=== PATIENT | male | born 1965 | race Caucasian/White ===

== ENCOUNTER 2019-05-12 09:19 | Inpatient (IN) | payer MEDICAID ==
[2019-05-12] VITALS (10 sets, daily range): BP systolic 144–179; BP diastolic 76–126
[~2019-05-12] VITALS: Ht 182.9 cm; Wt 134.1 kg
[~2019-05-12 09:19] MED LIST: ALBU8.5H8 INH; ALD25T PO; ASPI-107 PO; CARV-50 PO; FURO40TA4 PO; LINA5TAB4 PO; LOSA100T57 PO; POTA10TA19 PO; TIOT4MIS5 INH; ZAR2.5T PO
[2019-05-12] MEDS ORDERED: diltiazem 5mg/ml 5ml inj. IV ONE ×2 (09:45→10:10)
[2019-05-12 09:52] LABS: BASOPHILS # (AUTO) 0.1 X10'3 (0-0.2); BASOPHILS % (AUTO) 0.8 % (0-1); EOSINOPHILS # (AUTO) 0.3 X10'3 (0-0.9); EOSINOPHILS % (AUTO) 3.4 % (0-6); HEMATOCRIT 48.7 % (42.0-52.0); HEMOGLOBIN 16.6 g/dl (14.0-17.9); LYMPHOCYTES % (AUTO) 19.8 % (21-51); MEAN CORPUSCULAR HEMOGLOBIN 31.7 PG (27.0-31.0); MEAN CORPUSCULAR VOLUME 93.2 FL (78-98); MEAN PLATELET VOLUME 8.7 FL (7.4-10.4); MONOCYTES # (AUTO) 0.8 X10'3 (0-0.9); NEUTROPHILS # (AUTO) 6.8 X10'3 (1.8-7.7); PLATELET COUNT 169 X10'3 (140-440); RED BLOOD COUNT 5.23 X10'6 (4.70-6.10)
[2019-05-12 10:03] LABS: ALANINE AMINOTRANSFERASE 56 U/L (12-78); ALBUMIN 3.1 G/DL (3.4-5.0); ALBUMIN/GLOBULIN RATIO 0.6 (1.1-1.5); ALKALINE PHOSPHATASE 94 IU/L (46-116); ANION GAP 5 (8-16); ASPARTATE AMINO TRANSFERASE 29 U/L (10-37); BILIRUBIN,TOTAL 0.2 MG/DL (0.1-1.0); BLOOD UREA NITROGEN 14 MG/DL (7-18); BUN/CREATININE RATIO 12.2 (5.4-32.0); CALCIUM 9.4 MG/DL (8.5-10.1); CHLORIDE 103 MMOL/L (99-107); CREATININE 1.15 MG/DL (0.60-1.10); GLUCOSE 235 MG/DL (70-104); POTASSIUM 4.2 MMOL/L (3.5-5.1); SODIUM 138 MMOL/L (135-145); TOTAL CARBON DIOXIDE 30.1 MMOL/L (24-32); TOTAL PROTEIN 8.4 G/DL (6.4-8.2); eGFR 67 ML/MIN
[2019-05-12] MEDS ORDERED: CefTRIAXone 2gm/D5W 50ml 50 ML IV ONE (10:25)
[2019-05-12] MEDS ORDERED: diltiazem-D5W 125mg/125ml 125 ML IV ONE (10:43)
[2019-05-12] MEDS ORDERED: diltiazem-NS 100mg/100ml 100 ML IV ONE (10:48)
--- NOTE | 2019-05-12 12:14 | NUR ---
received report from artis, breaking for lunch
--- NOTE | 2019-05-12 12:19 | NUR ---
contact numbers: kesha [phone] and mom segun [phone]
[2019-05-12] MEDS ORDERED: magnesium Cl slow-release 64mg tablet PO PRN (12:55)
[2019-05-12] MEDS ORDERED: mag hydrox/Alum hydrox/simeth 30ml oral suspension PO PRN (12:55)
[2019-05-12] MEDS ORDERED: ondansetron/PF 4mg/2ml inj IV PRN (12:55)
[2019-05-12] MEDS ORDERED: diltiazem-D5W 125mg/125ml 125 ML IV SCH (12:55)
[2019-05-12] MEDS ORDERED: morphine 2 MG/ML inj. syringe IV PRN ×2 (12:55)
[2019-05-12] MEDS ORDERED: magnesium 4gm in 100ml NS 100 ML IV PRN (12:55)
[2019-05-12] MEDS ORDERED: magnesium hydroxide 30ml (MOM) UD suspension PO PRN (12:55)
[2019-05-12] MEDS ORDERED: potassium CL 10mEq/100ml bag 100 ML IV PRN ×2 (12:55)
[2019-05-12] MEDS ORDERED: acetaminophen 325mg tablet PO PRN (12:55)
[2019-05-12] MEDS ORDERED: magnesium 2GM in 50ml NS 50 ML IV PRN (12:55)
[2019-05-12] MEDS ORDERED: potassium Cl 20 mEq SR tablet PO PRN ×2 (12:55)
[2019-05-12] MEDS ORDERED: diltiazem-NS 100mg/100ml 100 ML IV SCH (13:15)
[2019-05-12] MEDS: enoxaparin 100mg/ml syringe SUBCUT SCH ×2 (13:26→22:42)
[2019-05-12] MEDS: enoxaparin 30mg/0.3ml syringe SUBCUT SCH ×2 (13:26→22:43)
[2019-05-12] MEDS: diltiazem-NS 100mg/100ml 100 ML IV SCH ×2 (13:33→18:30)
[2019-05-12] MEDS ORDERED: ZOLP10TA5 PO (13:35)
[2019-05-12] MEDS ORDERED: TIOT18CA3 IH (13:35)
[2019-05-12] MEDS ORDERED: INSU100I31 SQ (13:36)
[2019-05-12] MEDS ORDERED: DULA0.75 SQ (13:37)
[2019-05-12] MEDS ORDERED: SACU1TAB4 PO (13:39)
[2019-05-12] MEDS ORDERED: BECL10.62 IH (13:40)
[2019-05-12] MEDS ORDERED: glucagon, human recombinant 1mg kit SUBCUT PRN (13:45)
[2019-05-12] MEDS ORDERED: dextrose 50%-water 50ml dispensing syringe IV PRN ×2 (13:45)
[2019-05-12] MEDS ORDERED: dextrose ORAL solution 15 GM/59 ML bottle PO PRN ×2 (13:45)
[2019-05-12] MEDS ORDERED: MESSAGE TO PHARMACY PO ONE (13:45)
--- NOTE | 2019-05-12 13:45 | NUR ---
patient arrived on unit from ER on [facility]. pt ambulated to bed without difficulty. lunch tray ordered from dietary. Patient resting comfortably in bed. Will continue to monitor.
[2019-05-12] MEDS: HYDROcodone/acetaminophen 5mg/325mg tablet PO PRN ×2 (16:56→21:32)
[2019-05-12] MEDS ORDERED: ipratropium/albuterol 3ml nebule NEB PRN (18:00)
--- NOTE | 2019-05-12 18:00 | NUR ---
Patient in room PCU 3016. I have received report from Marlee GOLDSTEIN and had the opportunity to ask questions and assume patient care.
[2019-05-12] MEDS: insulin Lispro (HumaLOG) vial - multi-dose SQ SCH (18:31)
[2019-05-12] MEDS: ipratropium/albuterol 3ml nebule NEB SCH (19:44)
[2019-05-12] MEDS: budesonide 0.5mg/2ml UD nebule IH SCH (19:44)
[2019-05-12] MEDS: carVEDilol 12.5mg tablet PO SCH (20:11)
[2019-05-12] MEDS: insulin glargine (Lantus) pen - multi-dose SQ SCH (20:25)
[2019-05-12] MEDS: furosemide 20 MG/2 ML vial IV SCH (20:28)
[2019-05-12] MEDS: zolpidem 5mg tablet PO PRN (22:14)
[2019-05-13] VITALS (9 sets, daily range): BP systolic 115–169; BP diastolic 79–97
[2019-05-13] MEDS: diltiazem-NS 100mg/100ml 100 ML IV SCH ×2 (00:36→08:56)
[2019-05-13 05:25] LABS: BASOPHILS # (AUTO) 0.1 X10'3 (0-0.2); BASOPHILS % (AUTO) 0.6 % (0-1); EOSINOPHILS # (AUTO) 0.4 X10'3 (0-0.9); HEMATOCRIT 46.5 % (42.0-52.0); LYMPHOCYTES # (AUTO) 1.8 X10'3 (1.1-4.8); LYMPHOCYTES % (AUTO) 19.4 % (21-51); MEAN CORPUSCULAR HEMOGLOBIN 32.3 PG (27.0-31.0); MEAN CORPUSCULAR HGB CONC 34.5 g/dL (33.0-36.5); MEAN CORPUSCULAR VOLUME 93.6 FL (78-98); MONOCYTES # (AUTO) 0.6 X10'3 (0-0.9); MONOCYTES % (AUTO) 6.8 % (2-12); NEUTROPHILS # (AUTO) 6.3 X10'3 (1.8-7.7); NEUTROPHILS % (AUTO) 69.2 % (42-75); PLATELET COUNT 173 X10'3 (140-440); RED BLOOD COUNT 4.96 X10'6 (4.70-6.10); WHITE BLOOD COUNT 9.1 X10'3 (4.5-11.0)
[2019-05-13 05:27] LABS: ALBUMIN 2.9 G/DL (3.4-5.0); ANION GAP 6 (8-16); BLOOD UREA NITROGEN 15 MG/DL (7-18); BUN/CREATININE RATIO 10.5 (5.4-32.0); CHLORIDE 101 MMOL/L (99-107); CREATININE 1.43 MG/DL (0.60-1.10); GLUCOSE 166 MG/DL (70-104); POTASSIUM 4.1 MMOL/L (3.5-5.1); SODIUM 137 MMOL/L (135-145); TOTAL CARBON DIOXIDE 30.5 MMOL/L (24-32); eGFR 52 ML/MIN
--- NOTE | 2019-05-13 05:48 | NUR ---
Orientee documentation: I have reviewed and agree with all interventions, meds given, assessments performed and documented by Halle GOLDSTEIN.
--- NOTE | 2019-05-13 06:05 | NUR ---
Problems reprioritized. Patient report given, questions answered & plan of care reviewed with Marlee and Kelly RNs.
--- NOTE | 2019-05-13 06:06 | NUR ---
Patient in room PCU 3016. I have received report from Cassidy GOLDSTEIN and Halle GOLDSTEIN and had the opportunity to ask questions and assume patient care.
--- NOTE | 2019-05-13 06:06 | NUR ---
Problems reprioritized. Patient report given, questions answered & plan of care reviewed with Marlee GOLDSTEIN and Kelly GOLDSTEIN.
[2019-05-13] MEDS: ipratropium/albuterol 3ml nebule NEB SCH ×4 (06:53→19:22)
[2019-05-13] MEDS: budesonide 0.5mg/2ml UD nebule IH SCH (06:53)
[2019-05-13] MEDS ORDERED: spironolactone 25 MG tablet PO SCH (08:00)
[2019-05-13] MEDS: K and/or MAG REPLACEMENT MC SCH (08:00)
[2019-05-13] MEDS ORDERED: SACUBITRIL PO SCH (08:00)
[2019-05-13] MEDS ORDERED: VALSARTAN PO SCH (08:00)
[2019-05-13] MEDS: furosemide 20 MG/2 ML vial IV SCH (08:56)
[2019-05-13] MEDS: carVEDilol 12.5mg tablet PO SCH ×2 (08:56→20:43)
[2019-05-13] MEDS: enoxaparin 100mg/ml syringe SUBCUT SCH (08:57)
[2019-05-13] MEDS: enoxaparin 30mg/0.3ml syringe SUBCUT SCH (08:57)
[2019-05-13] MEDS: insulin Lispro (HumaLOG) vial - multi-dose SQ SCH ×3 (09:29→18:58)
--- NOTE | 2019-05-13 11:44 | NUR ---
Called and left message for to bring in patients Entresto, per pharmacy.
[2019-05-13] MEDS: HYDROcodone/acetaminophen 5mg/325mg tablet PO PRN ×2 (13:11→19:01)
[2019-05-13] MEDS ORDERED: diltiazem 30mg tablet PO ONE (13:40)
--- NOTE | 2019-05-13 14:23 | NUR ---
Page sent to Dr. Taveras regarding patient's anxiety. PAGER ID: [phone] MESSAGE: re [phone] Irvin Ordoñez. Pt is c/o anxiety, he says he's taken Xanax in the past. Please advise. Thanks! Marlee [phone]
--- NOTE | 2019-05-13 14:26 | NUR ---
DM consult: Pt with A1c 7.0 seen at bedside. Pt very tired and unable to stay awake during RD visit. Written DM education with referral to outpatient DM class and RD contact information left at bedside. Pt endorses a good appetite which is evident with documented 75-100% PO intake, pt reports getting full from meals. Pt reports LBM today. Will continue to follow. Addendum: 05/13/19 at [address] Amended: Links added.
--- NOTE | 2019-05-13 16:35 | NUR ---
Telephone order to kwadwo Adame.
--- NOTE | 2019-05-13 18:00 | NUR ---
Patient in room PCU 3016. I have received report from Marlee GOLDSTEIN and Kelly GOLDSTEIN and had the opportunity to ask questions and assume patient care.
--- NOTE | 2019-05-13 18:20 | NUR ---
Problems reprioritized. Patient report given, questions answered & plan of care reviewed with Dewayne and Halle RNs.
--- NOTE | 2019-05-13 18:30 | NUR ---
Patient in room PCU 3016A. I have received report from ANGELITA Whalen and ANGELITA Mendoza and had the opportunity to ask questions and assume patient care. Patient resting comfortably in bed for bedside report. On room air and stable at this time. Still in atrial fibrillation controlled HR in 70's. Will continue to monitor closely.
[2019-05-13] MEDS: diltiazem 30mg tablet PO SCH (20:43)
[2019-05-13] MEDS: apixaban 5mg tablet PO SCH (20:43)
[2019-05-13] MEDS: insulin glargine (Lantus) pen - multi-dose SQ SCH (21:19)
[2019-05-13] MEDS: zolpidem 5mg tablet PO PRN (21:28)
[2019-05-14] VITALS (17 sets, daily range): BP systolic 132–168; BP diastolic 82–126
[2019-05-14 05:25] LABS: BASOPHILS % (AUTO) 0.5 % (0-1); EOSINOPHILS # (AUTO) 0.3 X10'3 (0-0.9); EOSINOPHILS % (AUTO) 3.6 % (0-6); HEMATOCRIT 48.6 % (42.0-52.0); HEMOGLOBIN 16.4 g/dl (14.0-17.9); LYMPHOCYTES # (AUTO) 1.7 X10'3 (1.1-4.8); LYMPHOCYTES % (AUTO) 22.6 % (21-51); MEAN CORPUSCULAR HEMOGLOBIN 31.6 PG (27.0-31.0); MEAN CORPUSCULAR HGB CONC 33.7 g/dL (33.0-36.5); MEAN CORPUSCULAR VOLUME 93.8 FL (78-98); MEAN PLATELET VOLUME 9.2 FL (7.4-10.4); MONOCYTES # (AUTO) 0.7 X10'3 (0-0.9); MONOCYTES % (AUTO) 8.6 % (2-12); NEUTROPHILS % (AUTO) 64.7 % (42-75); PLATELET COUNT 168 X10'3 (140-440); RED BLOOD COUNT 5.18 X10'6 (4.70-6.10); RED CELL DISTRIBUTION WIDTH 14.3 % (11.5-14.5); WHITE BLOOD COUNT 7.7 X10'3 (4.5-11.0)
[2019-05-14 05:40] LABS: ALBUMIN 2.8 G/DL (3.4-5.0); ANION GAP 4 (8-16); BLOOD UREA NITROGEN 18 MG/DL (7-18); CALCIUM 8.7 MG/DL (8.5-10.1); CHLORIDE 102 MMOL/L (99-107); CREATININE 1.29 MG/DL (0.60-1.10); GLUCOSE 128 MG/DL (70-104); SODIUM 137 MMOL/L (135-145); TOTAL CARBON DIOXIDE 30.6 MMOL/L (24-32); eGFR 58 ML/MIN
--- NOTE | 2019-05-14 05:56 | NUR ---
audiovisual lead technician notified RN of several episodes of ST 130-150's. Patient takes home medication ambien HS and has been receiving [place] and has been complaining of frequent, lucid nightmares. Will inform day shift so that hospitalist over seeing patient is aware.
--- NOTE | 2019-05-14 06:07 | NUR ---
Problems reprioritized. Patient report given, questions answered & plan of care reviewed with ANGELITA Kendall.
--- NOTE | 2019-05-14 06:10 | NUR ---
Patient in room PCU 3016. I have received report from ANGELITA Neri and ANGELITA Buchanan and had the opportunity to ask questions and assume patient care. Patient currently resting in bed, bed locked and low, call light in reach, no acute distress, will continue to monitor
--- NOTE | 2019-05-14 06:20 | NUR ---
Problems reprioritized. Patient report given, questions answered & plan of care reviewed with Eleni OGLDSTEIN.
--- NOTE | 2019-05-14 06:23 | NUR ---
Orientee documentation: I have reviewed and agree with all interventions, assessments performed and documented by ANGELITA Neri.
[2019-05-14] MEDS: LORazepam 1 MG tablet PO PRN (06:29)
[2019-05-14] MEDS: diltiazem 30mg tablet PO SCH ×3 (07:35→21:00)
[2019-05-14] MEDS: apixaban 5mg tablet PO SCH ×2 (07:35→19:03)
[2019-05-14] MEDS: carVEDilol 12.5mg tablet PO SCH ×2 (07:35→19:03)
[2019-05-14] MEDS: HYDROcodone/acetaminophen 5mg/325mg tablet PO PRN ×2 (07:41→21:26)
--- NOTE | 2019-05-14 07:46 | NUR ---
PAGER ID: [phone] MESSAGE: ANGELITA Knowles, ext [phone], [phone], [place], patient back in RVR, HR 130s-160, morning meds given, BP 168/107 patient c/o headache 12/02, Ativan and [place] have both been given in last hour.
--- NOTE | 2019-05-14 07:47 | NUR ---
PAGER ID: [phone] MESSAGE: ANGELITA Knowles, ext [phone], [phone], [place], patient back in RVR, HR 130s-160, morning meds given, BP 168/107 patient c/o headache 12/02, Ativan and [place] have both been given in last hour.
[2019-05-14] MEDS: K and/or MAG REPLACEMENT MC SCH (08:00)
[2019-05-14] MEDS: LORazepam 2 mg/ml vial IV PRN (08:23)
[2019-05-14] MEDS: metoprolol tartrate 1mg/ml inj IV SCH ×2 (08:23→08:35)
--- NOTE | 2019-05-14 08:30 | NUR ---
spoke with Dr Taveras regarding patients return to RVR, ordered metoprolol as it seems that patient is extremely anxious and this may be triggering a higher ventricular response, also gave ativan 1 mg IV for anxiety. will repeat dose of metoprolol if necessary.
--- NOTE | 2019-05-14 08:40 | NUR ---
PAGER ID: [phone] MESSAGE: ANGELITA hobbs, ext [phone], [phone], [place], patient is complaining is expressing feelings of doom, IV Ativan was given, diaphoretic, wheezing that cleared with cough, HR continues to escalate intermittently but is lower baseline post metoprolol
[2019-05-14] MEDS: ipratropium/albuterol 3ml nebule NEB SCH ×4 (08:53→19:58)
[2019-05-14] MEDS: budesonide 0.5mg/2ml UD nebule IH SCH (08:53)
[2019-05-14] MEDS ORDERED: morphine 2 MG/ML inj. syringe IV PRN (08:55)
[2019-05-14] MEDS ORDERED: furosemide 20 MG/2 ML vial IV ONE (09:00)
[2019-05-14] MEDS ORDERED: methylPREDNISolone sod succ 125mg/2ml vial IV ONE (09:00)
[2019-05-14] MEDS: piperacillin/tazo 3.375gm/50ml 50 ML IV SCH ×3 (09:24→23:55)
--- NOTE | 2019-05-14 10:00 | NUR ---
Rapid response team paged due to patient being in increasing distress
--- NOTE | 2019-05-14 10:05 | NUR ---
Rapid Response A rapid response was called on this patient. On arrival to bedside, the patient was alternating between somnolent and agitated, HR in the 130s-150s, bipap on, RR mid 20s. Patient was asserting feelings of impending doom when awake. Interventions: ABG drawn, sitter placed to help keep patient calm and keep bipap in place, cardizem drip restarted for RVR, vimal DC'd Rapid response outcome: patient will continue to be monitored on PCU
[2019-05-14 10:31] LABS: ABG BASE EXCESS 3.5 mmol/L (-2.0-3.0); ABG HCO3 28.5 mmol/L (22.0-26.0); ABG OXYGEN SATURATION 87.5 % (95-98); ABG PCO2 (T) 44.1 mmHg (35.0-45.0); ABG PH (T) 7.429 (7.350-7.450); ABG PO2 (T) 50.5 mmHg (83-108); ALLEN'S TEST Positive; FCOHb 0.7 % (0.5-1.5); FMetHb 0.2 % (0.3-1.12); FO2Hb 86.7 % (94-100); TOTAL HEMOGLOBIN 18.3 G/dl (14.0-17.9)
[2019-05-14] MEDS: diltiazem-NS 100mg/100ml 100 ML IV SCH (10:44)
--- NOTE | 2019-05-14 11:00 | NUR ---
Dr. Taveras confirmed approval of placement of midline for patient.
--- NOTE | 2019-05-14 11:35 | NUR ---
PAGER ID: [phone] MESSAGE: ANGELITA Knowles, ext [phone], [id number], [place], echo done, EF 25-30%. HR continues to be 120s-130s, family at bedside, would like to speak to you. State this behavior is not normal for patient.
--- NOTE | 2019-05-14 11:37 | NUR ---
PAGER ID: [phone] MESSAGE: ANGELITA Knowles, ext [phone], [id number], [place], echo done, EF 25-30%. HR continues to be 120s-130s, family at bedside, would like to speak to you. State this behavior is not normal for patient.
[2019-05-14] MEDS: insulin Lispro (HumaLOG) vial - multi-dose SQ SCH ×3 (14:03→21:21)
--- NOTE | 2019-05-14 17:55 | NUR ---
PAGER ID: [phone] MESSAGE: ANGELITA Knowles, ext [phone], 2211N, [place], patient had 6 beat run of V-tach, HR going back up to 120s/130s with Cardizem @5, do you want to increase?
--- NOTE | 2019-05-14 18:22 | NUR ---
Patient in room PCU 3016. I have received report from Eleni GOLDSTEIN and had the opportunity to ask questions and assume patient care.
--- NOTE | 2019-05-14 18:22 | NUR ---
Problems reprioritized. Patient report given, questions answered & plan of care reviewed with ANGELITA Goddard.
[2019-05-14] MEDS: lactobacillus rhamnosus 10,000 MMU CELLS/CAPSULE PO SCH (19:03)
[2019-05-14] MEDS: furosemide 20 MG/2 ML vial IV SCH (19:04)
--- NOTE | 2019-05-14 21:10 | NUR ---
RE: non administration of PO cardizem. Medication held r/t pt being back on the cardizem drip.
[2019-05-14] MEDS: insulin glargine (Lantus) pen - multi-dose SQ SCH (21:20)
[2019-05-15] VITALS (9 sets, daily range): BP systolic 114–149; BP diastolic 80–99
[2019-05-15 01:07] LABS: BASOPHILS # (AUTO) 0.1 X10'3 (0-0.2); BASOPHILS % (AUTO) 0.7 % (0-1); EOSINOPHILS % (AUTO) 0 % (0-6); HEMATOCRIT 51.1 % (42.0-52.0); HEMOGLOBIN 17.4 g/dl (14.0-17.9); LYMPHOCYTES # (AUTO) 1.4 X10'3 (1.1-4.8); LYMPHOCYTES % (AUTO) 10.8 % (21-51); MEAN CORPUSCULAR HEMOGLOBIN 31.5 PG (27.0-31.0); MEAN CORPUSCULAR HGB CONC 34.1 g/dL (33.0-36.5); MEAN CORPUSCULAR VOLUME 92.4 FL (78-98); MEAN PLATELET VOLUME 9.2 FL (7.4-10.4); MONOCYTES # (AUTO) 0.6 X10'3 (0-0.9); MONOCYTES % (AUTO) 4.4 % (2-12); NEUTROPHILS # (AUTO) 11.1 X10'3 (1.8-7.7); NEUTROPHILS % (AUTO) 84.1 % (42-75); PLATELET COUNT 204 X10'3 (140-440); RED BLOOD COUNT 5.53 X10'6 (4.70-6.10); WHITE BLOOD COUNT 13.3 X10'3 (4.5-11.0)
[2019-05-15 01:18] LABS: ALBUMIN 2.9 G/DL (3.4-5.0); ANION GAP 6 (8-16); BLOOD UREA NITROGEN 22 MG/DL (7-18); BUN/CREATININE RATIO 13.3 (5.4-32.0); CALCIUM 9.5 MG/DL (8.5-10.1); CHLORIDE 99 MMOL/L (99-107); CREATININE 1.65 MG/DL (0.60-1.10); GLUCOSE 181 MG/DL (70-104); MAGNESIUM 2.1 MG/DL (1.5-2.4); POTASSIUM 3.9 MMOL/L (3.5-5.1); SODIUM 138 MMOL/L (135-145); TOTAL CARBON DIOXIDE 32.6 MMOL/L (24-32); TROPONIN I < 0.04 NG/ML (0.0-0.05); eGFR 44 ML/MIN
[2019-05-15] MEDS: diltiazem-NS 100mg/100ml 100 ML IV SCH (03:40)
--- NOTE | 2019-05-15 06:11 | NUR ---
Problems reprioritized. Patient report given, questions answered & plan of care reviewed with Eleni GOLDSTEIN.
--- NOTE | 2019-05-15 06:15 | NUR ---
Patient in room PCU 3016. I have received report from ANGELITA Goddard and had the opportunity to ask questions and assume patient care. Patient is currently resting in bed, bed locked and low, call light in reach, no acute distress, will continue to monitor.
[2019-05-15] MEDS: budesonide 0.5mg/2ml UD nebule IH SCH ×2 (07:02→23:30)
[2019-05-15] MEDS: ipratropium/albuterol 3ml nebule NEB SCH ×4 (07:02→19:13)
[2019-05-15] MEDS: lactobacillus rhamnosus 10,000 MMU CELLS/CAPSULE PO SCH ×2 (07:12→22:31)
[2019-05-15] MEDS: diltiazem 30mg tablet PO SCH ×3 (07:12→22:30)
[2019-05-15] MEDS: apixaban 5mg tablet PO SCH ×2 (07:12→22:30)
[2019-05-15] MEDS: carVEDilol 12.5mg tablet PO SCH ×2 (07:13→22:31)
[2019-05-15] MEDS: piperacillin/tazo 3.375gm/50ml 50 ML IV SCH ×3 (07:15→23:04)
[2019-05-15] MEDS: furosemide 20 MG/2 ML vial IV SCH (07:21)
[2019-05-15] MEDS: K and/or MAG REPLACEMENT MC SCH (08:00)
[2019-05-15] MEDS: insulin Lispro (HumaLOG) vial - multi-dose SQ SCH ×2 (08:18→18:42)
--- NOTE | 2019-05-15 10:05 | NUR ---
Initial: Pt admit with new onset A.fib with RVR. Per MD notes pt was in respiratory distress, severely anxious, and also maybe having panic attacks; pt s/p rapid response yesterday per RN notes. Pt on heart healthy CHO controlled diet documented with 75-100% PO intake. Pt already has RD contact information and has been encouraged to reach out to RD team if he has any requests or questions. LBM 05/13, currently only with PRN bowel care. No nutrition diagnosis at this time. Will continue to follow. Recommendations: 1) Continue heart healthy CHO controlled diet 2) Routine bowel care 3) Wt per rx Addendum: 05/15/19 at [address] Amended: Links added.
[2019-05-15] MEDS ORDERED: diltiazem 30mg tablet PO ONE (10:40)
--- NOTE | 2019-05-15 11:50 | NUR ---
Student documentation: I have reviewed all interventions, assessments performed and [facility] Student Medication Administration: For this medication-pass time frame, all medication were reviewed, dispensed, administered and documented per hospital policy [facility].
[2019-05-15] MEDS: LORazepam 2 mg/ml vial IV PRN (16:48)
--- NOTE | 2019-05-15 18:21 | NUR ---
Problems reprioritized. Patient report given, questions answered & plan of care reviewed with ANGELITA Paula.
--- NOTE | 2019-05-15 18:37 | NUR ---
Patient in room PCU 3016. I have received report from Eleni GOLDSTEIN and had the opportunity to ask questions and assume patient care. bedside report. pt on bipap on current settings. 25 % FIO2. resting quietly. blood sugar covered 22units for glucose of 191 and 63 grams. fall precaution implemented and maintained.
[2019-05-15] MEDS: insulin glargine (Lantus) pen - multi-dose SQ SCH (22:42)
--- NOTE | 2019-05-15 23:00 | NUR ---
Dr. Navarrete at bedside. D/C Diltazem drip clarification for HR parameters. goal HR 110. IF HR sustains 130 or greater administer Metoprolol IVP
[2019-05-16 00:21] VITALS: BP 140/85
[2019-05-16 02:00] VITALS: BP 117/91
[2019-05-16 05:37] LABS: ALBUMIN 2.9 G/DL (3.4-5.0); ANION GAP 5 (8-16); BLOOD UREA NITROGEN 29 MG/DL (7-18); BUN/CREATININE RATIO 17.4 (5.4-32.0); CHLORIDE 101 MMOL/L (99-107); CREATININE 1.67 MG/DL (0.60-1.10); GLUCOSE 131 MG/DL (70-104); MAGNESIUM 2.2 MG/DL (1.5-2.4); POTASSIUM 4.3 MMOL/L (3.5-5.1); SODIUM 137 MMOL/L (135-145); TOTAL CARBON DIOXIDE 30.6 MMOL/L (24-32); eGFR 43 ML/MIN
[2019-05-16 05:40] LABS: BASOPHILS % (AUTO) 0.4 % (0-1); EOSINOPHILS # (AUTO) 0.1 X10'3 (0-0.9); EOSINOPHILS % (AUTO) 1.1 % (0-6); HEMATOCRIT 49.3 % (42.0-52.0); HEMOGLOBIN 16.8 g/dl (14.0-17.9); LYMPHOCYTES # (AUTO) 3.3 X10'3 (1.1-4.8); MEAN CORPUSCULAR HEMOGLOBIN 31.8 PG (27.0-31.0); MEAN CORPUSCULAR VOLUME 93.4 FL (78-98); MONOCYTES # (AUTO) 0.8 X10'3 (0-0.9); NEUTROPHILS # (AUTO) 8.9 X10'3 (1.8-7.7); NEUTROPHILS % (AUTO) 67.5 % (42-75); PLATELET COUNT 183 X10'3 (140-440); RED BLOOD COUNT 5.28 X10'6 (4.70-6.10); RED CELL DISTRIBUTION WIDTH 14.4 % (11.5-14.5); WHITE BLOOD COUNT 13.1 X10'3 (4.5-11.0)
[2019-05-16 06:00] VITALS: BP 137/103
--- NOTE | 2019-05-16 06:41 | NUR ---
Problems reprioritized. Patient report given, questions answered & plan of care reviewed with Enrike GOLDSTEIN. pt asleep. Bipap on currently on 25 % FiO2. no distress noted. .
--- NOTE | 2019-05-16 06:44 | NUR ---
Patient in room PCU 3016. I have received report from ANGELITA Marcus and had the opportunity to ask questions and assume patient care.
[2019-05-16] MEDS: budesonide 0.5mg/2ml UD nebule IH SCH ×2 (07:41→07:42)
[2019-05-16] MEDS: ipratropium/albuterol 3ml nebule NEB SCH (07:41)
[2019-05-16] MEDS ORDERED: furosemide 20MG tablet PO SCH (08:00)
[2019-05-16] MEDS: K and/or MAG REPLACEMENT MC SCH (08:00)
[2019-05-16] MEDS: piperacillin/tazo 3.375gm/50ml 50 ML IV SCH (08:19)
[2019-05-16] MEDS: apixaban 5mg tablet PO SCH (08:19)
[2019-05-16] MEDS ORDERED: carVEDilol 12.5mg tablet PO ONE (08:20)
[2019-05-16] MEDS: insulin Lispro (HumaLOG) vial - multi-dose SQ SCH (08:28)
[2019-05-16] MEDS: lactobacillus rhamnosus 10,000 MMU CELLS/CAPSULE PO SCH (08:29)
[2019-05-16] MEDS: LORazepam 1 MG tablet PO PRN (09:47)
[2019-05-16] MEDS ORDERED: digoxin 250mcg/ml 2ml ampule IV ONE (10:20)
--- NOTE | 2019-05-16 10:59 | NUR ---
PAGER ID: [phone] MESSAGE: [id number] ruma Salcedo RN Ext [phone]
--- NOTE | 2019-05-16 11:43 | NUR ---
Patient left AMA. PIV's and PICC line taken out and leads taken off patient. Patient was educated by of the risk of going AMA. Dr was notified and AMA paper signed.
[2019-05-16] MEDS ORDERED: digoxin 250mcg/ml 2ml ampule IV SCH (16:30)
[2019-05-16] MEDS ORDERED: carVEDilol 12.5mg tablet PO SCH (20:00)
[2019-05-17] MEDS ORDERED: digoxin 250mcg (0.25mg) tablet PO SCH (08:00)
[2019-05-17] MEDS ORDERED: SACU1TAB4 PO (13:51)
[2019-05-17] MEDS ORDERED: FURO40TA4 PO (13:51)
[2019-05-17] MEDS ORDERED: DILT180C66 PO (13:51)
[2019-05-17] MEDS ORDERED: APIX5TAB3 PO (13:51)
[2019-05-17] MEDS ORDERED: CARV-50 PO (13:51)
== END 2019-05-16 11:25 | disposition left against medical advice (07) | DRG 190 ==
LOC: ER 09:20 → ED HOLD 13:16 → PCU 3S 13:55
PROVIDERS: ADMIT Hospitalist; ATTEND Family Medicine
PROC: 5A09357 Assistance with Respiratory Ventilation, Less than 24 Consecutive Hours, Continuous Positive Airway Pressure (ICD-10-PCS; principal; 2019-05-12)
PROC: 5A09357 Assistance with Respiratory Ventilation, Less than 24 Consecutive Hours, Continuous Positive Airway Pressure (ICD-10-PCS; 2019-05-13)
PROC: 5A09357 Assistance with Respiratory Ventilation, Less than 24 Consecutive Hours, Continuous Positive Airway Pressure (ICD-10-PCS; 2019-05-14)
PROC: 5A09357 Assistance with Respiratory Ventilation, Less than 24 Consecutive Hours, Continuous Positive Airway Pressure (ICD-10-PCS; 2019-05-15)
DX: I21.A1 Myocardial infarction type 2 (principal); I50.23 Acute on chronic systolic (congestive) heart failure; N17.9 Acute kidney failure, unspecified; N18.3 Chronic kidney disease, stage 3 (moderate); B19.20 Unspecified viral hepatitis C without hepatic coma; R14.0 Abdominal distension (gaseous); F12.90 Cannabis use, unspecified, uncomplicated; R00.0 Tachycardia, unspecified; G47.33 Obstructive sleep apnea (adult) (pediatric); I13.0 Hypertensive heart and chronic kidney disease with heart failure and stage 1 through stage 4 chronic kidney disease, or unspecified chronic kidney disease; J44.1 Chronic obstructive pulmonary disease with (acute) exacerbation; Z53.29 Procedure and treatment not carried out because of patient's decision for other reasons; F41.0 Panic disorder [episodic paroxysmal anxiety]; I25.10 Atherosclerotic heart disease of native coronary artery without angina pectoris; I48.91 Unspecified atrial fibrillation; Z80.8 Family history of malignant neoplasm of other organs or systems; I25.2 Old myocardial infarction; Z82.5 Family history of asthma and other chronic lower respiratory diseases; Z95.810 Presence of automatic (implantable) cardiac defibrillator; Z90.49 Acquired absence of other specified parts of digestive tract; Z79.899 Other long term (current) drug therapy; Z79.82 Long term (current) use of aspirin; Z79.4 Long term (current) use of insulin
CPT/HCPCS: 36415; 36600; 71045; 76700; 76937; 80048; 80053; 82803; 82948; 83036; 83605; 83735; 83880; 84145; 84484; 85018; 85025; 87040; 87081; 93005; 93306; 94640; 94660; 94760; 96365; 96375; 96376; 99285; G0378; J0696; J1160; J1650; J1815; J1940; J2060; J2270; J2543; J2930; J3490; J7626

== ENCOUNTER 2019-05-16 18:19 | Inpatient (IN) | payer MEDICAID ==
[~2019-05-16] VITALS: Ht 182.9 cm; Wt 134.0 kg
[~2019-05-16 18:19] MED LIST changes: +BECL10.62 IH; +DULA0.75 SQ; +INSU100I31 SQ; +SACU1TAB4 PO; +TIOT18CA3 IH; +ZOLP10TA5 PO
--- NOTE | 2019-05-16 18:50 | NUR ---
notified MD Miner of 160 HR, new orders for 1L NS bolu and 1mg ativan ivp
[2019-05-16] MEDS ORDERED: normal saline 1000ml 1,000 ML IV ONE (18:55)
[2019-05-16] MEDS ORDERED: LORazepam 2 mg/ml vial IV ONE (18:55)
[2019-05-16 19:08] LABS: BASOPHILS # (AUTO) 0.1 X10'3 (0-0.2); BASOPHILS % (AUTO) 0.5 % (0-1); EOSINOPHILS # (AUTO) 0.2 X10'3 (0-0.9); EOSINOPHILS % (AUTO) 1.3 % (0-6); HEMATOCRIT 51.9 % (42.0-52.0); HEMOGLOBIN 17.7 g/dl (14.0-17.9); LYMPHOCYTES # (AUTO) 3.5 X10'3 (1.1-4.8); LYMPHOCYTES % (AUTO) 24.4 % (21-51); MEAN CORPUSCULAR HEMOGLOBIN 31.5 PG (27.0-31.0); MEAN CORPUSCULAR HGB CONC 34.1 g/dL (33.0-36.5); MEAN CORPUSCULAR VOLUME 92.5 FL (78-98); MEAN PLATELET VOLUME 9.2 FL (7.4-10.4); MONOCYTES # (AUTO) 1.1 X10'3 (0-0.9); MONOCYTES % (AUTO) 7.7 % (2-12); NEUTROPHILS # (AUTO) 9.4 X10'3 (1.8-7.7); NEUTROPHILS % (AUTO) 66.1 % (42-75); PLATELET COUNT 205 X10'3 (140-440); RED BLOOD COUNT 5.61 X10'6 (4.70-6.10); RED CELL DISTRIBUTION WIDTH 13.9 % (11.5-14.5); WHITE BLOOD COUNT 14.2 X10'3 (4.5-11.0)
[2019-05-16 19:24] LABS: ALANINE AMINOTRANSFERASE 95 U/L (12-78); ALBUMIN 3.3 G/DL (3.4-5.0); ALBUMIN/GLOBULIN RATIO 0.6 (1.1-1.5); ALKALINE PHOSPHATASE 100 IU/L (46-116); ANION GAP 9 (8-16); ASPARTATE AMINO TRANSFERASE 44 U/L (10-37); BILIRUBIN,TOTAL 0.3 MG/DL (0.1-1.0); BLOOD UREA NITROGEN 35 MG/DL (7-18); BUN/CREATININE RATIO 19.6 (5.4-32.0); CALCIUM 9.3 MG/DL (8.5-10.1); CHLORIDE 103 MMOL/L (99-107); CREATININE 1.79 MG/DL (0.60-1.10); GLUCOSE 136 MG/DL (70-104); SODIUM 142 MMOL/L (135-145); TOTAL CARBON DIOXIDE 29.8 MMOL/L (24-32); TOTAL PROTEIN 8.8 G/DL (6.4-8.2); eGFR 40 ML/MIN
--- NOTE | 2019-05-16 19:35 | NUR ---
notified MD Miner of HR still maintaining at 160 and pt report of feeling asymptomatic. No new orders at this time. Pt is attempting to use the urinal for the second time.
[2019-05-16] MEDS ORDERED: diltiazem 5mg/ml 5ml inj. IV ONE ×2 (19:45→20:35)
[2019-05-16] MEDS ORDERED: magnesium 2GM in 50ml NS 50 ML IV ONE (19:45)
[2019-05-16 20:00] LABS: URINE AMPHETAMINE SCREEN POSITIVE (Neg); URINE BARBITUATE SCREEN NEGATIVE (Neg); URINE BENZODIAZEPINES SCREEN NEGATIVE (Neg); URINE CANNABINOID SCREEN NEGATIVE (Neg); URINE COCAINE SCREEN NEGATIVE (Neg); URINE METHADONE SCREEN NEGATIVE (Neg); URINE OPIATE SCREEN NEGATIVE (Neg); URINE PHENCYCLIDINE SCREEN NEGATIVE (Neg)
[2019-05-16] MEDS ORDERED: diltiazem-D5W 125mg/125ml 125 ML IV SCH (20:00)
[2019-05-16] MEDS: diltiazem-NS 100mg/100ml 100 ML IV SCH (20:15)
[2019-05-16] MEDS ORDERED: mag hydrox/Alum hydrox/simeth 30ml oral suspension PO PRN (20:40)
[2019-05-16] MEDS ORDERED: magnesium 4gm in 100ml NS 100 ML IV PRN (20:40)
[2019-05-16] MEDS ORDERED: acetaminophen 325mg tablet PO PRN (20:40)
[2019-05-16] MEDS ORDERED: HYDROcodone/acetaminophen 5mg/325mg tablet PO PRN (20:40)
[2019-05-16] MEDS ORDERED: magnesium Cl slow-release 64mg tablet PO PRN (20:40)
[2019-05-16] MEDS ORDERED: magnesium hydroxide 30ml (MOM) UD suspension PO PRN (20:40)
[2019-05-16] MEDS ORDERED: potassium CL 10mEq/100ml bag 100 ML IV PRN ×2 (20:40)
[2019-05-16] MEDS ORDERED: morphine 2 MG/ML inj. syringe IV PRN ×2 (20:40)
[2019-05-16] MEDS ORDERED: ondansetron/PF 4mg/2ml inj IV PRN (20:40)
[2019-05-16] MEDS ORDERED: magnesium 2GM in 50ml NS 50 ML IV PRN (20:40)
[2019-05-16] MEDS ORDERED: potassium Cl 20 mEq SR tablet PO PRN ×2 (20:40)
--- NOTE | 2019-05-16 21:45 | NUR ---
Patient arrived to PCU from the ER at this time. He is alert and oriented and able to make his needs known. He is able to ambulate from the gurney to the bed independently. He denies any pain at this time. He is A-fib with RVR and has a Cardizem drip going at 10mg/hour. He feels asymptomatic. He is on room air. All safety precautions in place. Will continue to monitor.
[2019-05-16 22:00] VITALS: BP 140/82
[2019-05-16 23:00] VITALS: BP 140/97
[2019-05-16] MEDS: apixaban 5mg tablet PO SCH (23:22)
[2019-05-17] VITALS: BP 120/82
--- NOTE | 2019-05-17 00:21 | NUR ---
promotional table spacer PAGER ID: [phone] MESSAGE: Patient Irvin Ordoñez Rm [id number] Patient just had a 6 beat run of V-tach, asymptomatic. Also wanted to obtained order for bipap. Thank you! Christy GOLDSTEIN ext. [phone]
--- NOTE | 2019-05-17 00:42 | NUR ---
Spoke with Dr. Taveras about patient's 6 beat run of V-tach. Patient was asymptomatic and this has not continued. No new orders received for this. Order obtained for Ambien 5mg HS per patient request and the 5mg was ordered rather than the 10mg due to it already being 0043. Also order obtained for patient to be on bipap since this he wears this every night at home.
[2019-05-17] MEDS ORDERED: zolpidem 5mg tablet PO PRN (00:45)
[2019-05-17 00:53] LABS: BASOPHILS # (AUTO) 0.1 X10'3 (0-0.2); BASOPHILS % (AUTO) 1.2 % (0-1); EOSINOPHILS # (AUTO) 0.2 X10'3 (0-0.9); EOSINOPHILS % (AUTO) 1.5 % (0-6); HEMATOCRIT 46.8 % (42.0-52.0); HEMOGLOBIN 15.8 g/dl (14.0-17.9); LYMPHOCYTES # (AUTO) 3.3 X10'3 (1.1-4.8); LYMPHOCYTES % (AUTO) 28.8 % (21-51); MEAN CORPUSCULAR HEMOGLOBIN 31.5 PG (27.0-31.0); MEAN CORPUSCULAR HGB CONC 33.8 g/dL (33.0-36.5); MEAN PLATELET VOLUME 9.2 FL (7.4-10.4); MONOCYTES # (AUTO) 0.8 X10'3 (0-0.9); MONOCYTES % (AUTO) 6.8 % (2-12); NEUTROPHILS % (AUTO) 61.7 % (42-75); PLATELET COUNT 178 X10'3 (140-440); RED BLOOD COUNT 5.03 X10'6 (4.70-6.10); RED CELL DISTRIBUTION WIDTH 14.4 % (11.5-14.5); WHITE BLOOD COUNT 11.3 X10'3 (4.5-11.0)
[2019-05-17 01:00] VITALS: BP 129/75
[2019-05-17 01:08] LABS: ALBUMIN 2.8 G/DL (3.4-5.0); ANION GAP 8 (8-16); BLOOD UREA NITROGEN 31 MG/DL (7-18); BUN/CREATININE RATIO 21.1 (5.4-32.0); CALCIUM 8.4 MG/DL (8.5-10.1); CHLORIDE 104 MMOL/L (99-107); CREATININE 1.47 MG/DL (0.60-1.10); GLUCOSE 167 MG/DL (70-104); MAGNESIUM 2.4 MG/DL (1.5-2.4); POTASSIUM 3.6 MMOL/L (3.5-5.1); SODIUM 141 MMOL/L (135-145); TOTAL CARBON DIOXIDE 29.1 MMOL/L (24-32); eGFR 50 ML/MIN
--- NOTE | 2019-05-17 01:30 | NUR ---
Patient just had another 5 beat run of V-tach. Still asymptomatic and BP is stable. Dr. Taveras notified. No new orders received. Will continue to monitor.
[2019-05-17] MEDS ORDERED: LORazepam 1 MG tablet PO PRN (01:35)
[2019-05-17 02:00] VITALS: BP 168/103
--- NOTE | 2019-05-17 02:50 | NUR ---
MD notified that patient had another 8 beat run and then a 6 beat run of V-tach. No new orders. Patient still asymptomatic.
[2019-05-17 04:00] VITALS: BP 130/78
[2019-05-17] MEDS ORDERED: MESSAGE TO PHARMACY PO ONE (04:30)
[2019-05-17] MEDS ORDERED: dextrose 50%-water 50ml dispensing syringe IV PRN ×2 (04:30)
[2019-05-17] MEDS ORDERED: insulin Lispro (HumaLOG) vial - multi-dose SQ SCH (04:30)
[2019-05-17] MEDS ORDERED: glucagon, human recombinant 1mg kit SUBCUT PRN (04:30)
[2019-05-17] MEDS ORDERED: dextrose ORAL solution 15 GM/59 ML bottle PO PRN ×2 (04:30)
[2019-05-17 05:00] VITALS: BP 145/86
[2019-05-17] MEDS: diltiazem-NS 100mg/100ml 100 ML IV SCH (05:28)
[2019-05-17 06:00] VITALS: BP 132/93
--- NOTE | 2019-05-17 06:22 | NUR ---
Problems reprioritized. Patient report given, questions answered & plan of care reviewed with Gladis RN.
--- NOTE | 2019-05-17 06:56 | NUR ---
Patient in room PCU 3018. I have received report from ANGELITA Harrison and had the opportunity to ask questions and assume patient care. Pt is sleeping. Will continue to monitor.
--- NOTE | 2019-05-17 07:11 | NUR ---
Sent to Dr Lieberman PAGER ID: [phone] MESSAGE: RE: Irvin Ordoñez [id number]. Pt had a 4 beat run of v-tach. EKG done per protocol, charge and I unable to determine ST elevation due to atrial flutter. - Gladis [phone]
[2019-05-17] MEDS ORDERED: K and/or MAG REPLACEMENT MC SCH (08:00)
[2019-05-17] MEDS ORDERED: carVEDilol 12.5mg tablet PO SCH (08:00)
[2019-05-17] MEDS ORDERED: diltiazem 60mg tablet PO SCH (08:00)
[2019-05-17] MEDS ORDERED: furosemide 40mg tablet PO SCH (08:00)
[2019-05-17] MEDS ORDERED: spironolactone 25 MG tablet PO SCH (08:00)
[2019-05-17] MEDS ORDERED: furosemide 20MG tablet PO SCH (08:00)
[2019-05-17] MEDS: apixaban 5mg tablet PO SCH (08:02)
[2019-05-17] MEDS ORDERED: cefpodoxime proxetil 100mg tablet PO SCH (08:30)
--- NOTE | 2019-05-17 08:50 | NUR ---
Sent to Dr Lieberman PAGER ID: [phone] MESSAGE: RE: Irvin Ordoñez [id number]. Pt had 9 beat run of v tach, then 5 beat run. -Gladis [phone]
[2019-05-17] MEDS: diltiazem 30mg tablet PO SCH ×2 (09:08→13:39)
--- NOTE | 2019-05-17 10:01 | NUR ---
Sent to Dr Lieberman PAGER ID: [phone] MESSAGE: RE: Irvin Ordoñez [id number]. Do you want to give a one time dose of Cardizem 120mg since the pt already had 60mg? Also, it sounded like you said a one time dose of Entresto. Did I hear correctly? -Gladis [phone]
--- NOTE | 2019-05-17 10:12 | NUR ---
Pt with A1c 7.0 just recently admitted and seen by [facility] 05/13/19 where pt was provided with written DM education with referral to outpatient DM class and RD contact information. Will continue to follow. Addendum: 05/17/19 at [address] Amended: Links added.
--- NOTE | 2019-05-17 13:28 | NUR ---
Sent to Dr Lieberman PAGER ID: [phone] MESSAGE: RE: Irvin Ordoñez [id number]. Pt extremely agitate. Wants to leave AMA. BP taken manually: 160/80, 154/100. Please advise. -Gladis [phone]
--- NOTE | 2019-05-17 13:28 | NUR ---
Pt extremely agitated. Wants to leave AMA. and mother were here to visit. When the pt stated he was going to leave, the told him not to because his HR and BP are uncontrolled. The pt then to accused his of cheating and that is why she didn't want him to come home. The pt accepted Ativan 1mg PO and consented to waiting to see if he calms down, and waiting to hear from Dr Lieberman.
--- NOTE | 2019-05-17 13:34 | NUR ---
Sent to Dr Lieberman PAGER ID: [phone] MESSAGE: RE: Irvin Ordoñez [id number]. Pt wants to speak with you, threatening to leave AMA. -Gladis 1503
[2019-05-17] MEDS ORDERED: APIX5TAB3 PO (13:51)
[2019-05-17] MEDS ORDERED: CARV-50 PO (13:51)
[2019-05-17] MEDS ORDERED: DILT180C66 PO (13:51)
[2019-05-17] MEDS ORDERED: SACU1TAB4 PO (13:51)
[2019-05-17] MEDS ORDERED: FURO40TA4 PO (13:51)
--- NOTE | 2019-05-17 14:30 | NUR ---
Phoned patient's new prescriptions to [facility] [address] [facility] per pt request. Pt states that he has renewed medications Coreg, Entresto and Lasix already at home.
--- NOTE | 2019-05-17 14:45 | NUR ---
Pt discharged. Off bedside monitor, IV d/c'd, all belongings sent with pt. Rx called in to preferred pharmacy. Escorted down by staff. Left in private vehicle with friend.
[2019-05-17] MEDS ORDERED: insulin glargine (Lantus) pen - multi-dose SQ SCH (21:00)
[2019-05-18] MEDS ORDERED: diltiazem CD 180mg cap (once-daily) PO SCH (08:00)
== END 2019-05-17 14:45 | disposition home or self-care (01) | DRG 139 ==
LOC: ER 18:20 → ED HOLD 21:09 → PCU 3S 21:15
PROVIDERS: ADMIT Hospitalist; ATTEND Internal Medicine
PROC: 5A09357 Assistance with Respiratory Ventilation, Less than 24 Consecutive Hours, Continuous Positive Airway Pressure (ICD-10-PCS; principal; 2019-05-17)
DX: J18.9 Pneumonia, unspecified organism (principal); I50.23 Acute on chronic systolic (congestive) heart failure; I42.7 Cardiomyopathy due to drug and external agent; I48.0 Paroxysmal atrial fibrillation; J44.0 Chronic obstructive pulmonary disease with (acute) lower respiratory infection; E66.01 Morbid (severe) obesity due to excess calories; E11.9 Type 2 diabetes mellitus without complications; I11.0 Hypertensive heart disease with heart failure; F15.10 Other stimulant abuse, uncomplicated; F41.0 Panic disorder [episodic paroxysmal anxiety]; I25.10 Atherosclerotic heart disease of native coronary artery without angina pectoris; B19.20 Unspecified viral hepatitis C without hepatic coma; I48.92 Unspecified atrial flutter; F12.90 Cannabis use, unspecified, uncomplicated; G47.30 Sleep apnea, unspecified; T43.625A Adverse effect of amphetamines, initial encounter; Z79.01 Long term (current) use of anticoagulants; Z79.4 Long term (current) use of insulin; Y92.89 Other specified places as the place of occurrence of the external cause; I25.2 Old myocardial infarction; Z79.899 Other long term (current) drug therapy; Z80.8 Family history of malignant neoplasm of other organs or systems; Z82.5 Family history of asthma and other chronic lower respiratory diseases; Z87.891 Personal history of nicotine dependence; Z68.41 Body mass index [BMI] 40.0-44.9, adult; Z90.49 Acquired absence of other specified parts of digestive tract
CPT/HCPCS: 36415; 71045; 80048; 80053; 80305; 82948; 83735; 84484; 85025; 87081; 93005; 96365; 96375; 99285; G0378; J1815; J2060; J2270; J3475; J3490

== ENCOUNTER 2019-05-19 00:18 | Inpatient (IN) | payer MEDICAID ==
[~2019-05-19] VITALS: Ht 182.9 cm; Wt 137.0 kg
[~2019-05-19 00:18] MED LIST changes: +APIX5TAB3 PO; -ASPI-107 PO; +DILT180C66 PO; -LINA5TAB4 PO; -LOSA100T57 PO; -POTA10TA19 PO; -TIOT4MIS5 INH; -ZAR2.5T PO
[2019-05-19 01:03] LABS: BASOPHILS # (AUTO) 0.1 X10'3 (0-0.2); EOSINOPHILS # (AUTO) 0.4 X10'3 (0-0.9); EOSINOPHILS % (AUTO) 2.9 % (0-6); HEMATOCRIT 50.8 % (42.0-52.0); MEAN PLATELET VOLUME 9.4 FL (7.4-10.4); MONOCYTES # (AUTO) 0.9 X10'3 (0-0.9)
[2019-05-19 01:04] LABS: BASOPHILS % (AUTO) 0.7 % (0-1); HEMOGLOBIN 17.3 g/dl (14.0-17.9); LYMPHOCYTES # (AUTO) 3.5 X10'3 (1.1-4.8); LYMPHOCYTES % (AUTO) 27.2 % (21-51); MEAN CORPUSCULAR HEMOGLOBIN 31.5 PG (27.0-31.0); MEAN CORPUSCULAR VOLUME 92.7 FL (78-98); MONOCYTES % (AUTO) 6.9 % (2-12); NEUTROPHILS % (AUTO) 62.3 % (42-75); PLATELET COUNT 188 X10'3 (140-440); RED BLOOD COUNT 5.48 X10'6 (4.70-6.10); RED CELL DISTRIBUTION WIDTH 13.9 % (11.5-14.5); WHITE BLOOD COUNT 12.8 X10'3 (4.5-11.0)
[2019-05-19] MEDS ORDERED: diltiazem 5mg/ml 5ml inj. IV ONE ×3 (01:05→09:10)
[2019-05-19] MEDS ORDERED: ipratropium/albuterol 3ml nebule NEB ONE (01:05)
[2019-05-19 01:16] LABS: ALANINE AMINOTRANSFERASE 76 U/L (12-78); ALBUMIN 2.9 G/DL (3.4-5.0); ALBUMIN/GLOBULIN RATIO 0.6 (1.1-1.5); ALKALINE PHOSPHATASE 98 IU/L (46-116); ANION GAP 5 (8-16); ASPARTATE AMINO TRANSFERASE 27 U/L (10-37); BILIRUBIN,TOTAL 0.3 MG/DL (0.1-1.0); BLOOD UREA NITROGEN 15 MG/DL (7-18); CALCIUM 8.6 MG/DL (8.5-10.1); CHLORIDE 105 MMOL/L (99-107); CREATININE 1.15 MG/DL (0.60-1.10); GLUCOSE 171 MG/DL (70-104); POTASSIUM 4.1 MMOL/L (3.5-5.1); SODIUM 139 MMOL/L (135-145); TOTAL CARBON DIOXIDE 29.1 MMOL/L (24-32); eGFR 67 ML/MIN
[2019-05-19 01:31] LABS: MAGNESIUM 1.9 MG/DL (1.5-2.4)
[2019-05-19 02:11] LABS: URINE AMPHETAMINE SCREEN POSITIVE (Neg); URINE BARBITUATE SCREEN NEGATIVE (Neg); URINE BENZODIAZEPINES SCREEN NEGATIVE (Neg); URINE CANNABINOID SCREEN NEGATIVE (Neg); URINE COCAINE SCREEN NEGATIVE (Neg); URINE METHADONE SCREEN NEGATIVE (Neg); URINE OPIATE SCREEN NEGATIVE (Neg); URINE PHENCYCLIDINE SCREEN NEGATIVE (Neg)
[2019-05-19] MEDS ORDERED: metoprolol tartrate 1mg/ml inj IV ONE (02:20)
[2019-05-19] MEDS ORDERED: LORazepam 2 mg/ml vial IV ONE (02:35)
[2019-05-19] MEDS: metoprolol tartrate 1mg/ml inj IV PRN ×3 (02:41→03:31)
[2019-05-19] MEDS ORDERED: amiodarone 50MG/ML inj IV ONE (04:30)
[2019-05-19] MEDS ORDERED: amiodarone/D5 360MG/200ML BAG 200 ML IV SCH ×2 (04:30→05:45)
[2019-05-19] MEDS ORDERED: amiodarone 150mg/dext, iso-os 100 ML IV ONE (04:35)
[2019-05-19] MEDS ORDERED: acetaminophen 325mg tablet PO PRN ×2 (05:45)
[2019-05-19] MEDS ORDERED: dextrose ORAL solution 15 GM/59 ML bottle PO PRN ×2 (05:45)
[2019-05-19] MEDS ORDERED: dextrose 50%-water 50ml dispensing syringe IV PRN ×2 (05:45)
[2019-05-19] MEDS ORDERED: diltiazem-D5W 125mg/125ml 125 ML IV SCH (05:45)
[2019-05-19] MEDS ORDERED: mag hydrox/Alum hydrox/simeth 30ml oral suspension PO PRN (05:45)
[2019-05-19] MEDS ORDERED: ondansetron/PF 4mg/2ml inj IV PRN (05:45)
[2019-05-19] MEDS ORDERED: magnesium hydroxide 30ml (MOM) UD suspension PO PRN (05:45)
[2019-05-19] MEDS ORDERED: MESSAGE TO PHARMACY PO ONE (05:45)
[2019-05-19] MEDS ORDERED: glucagon, human recombinant 1mg kit SUBCUT PRN (05:45)
[2019-05-19] MEDS ORDERED: DULAGLUTIDE SQ SCH (05:50)
[2019-05-19] MEDS ORDERED: albuterol 2.5 MG/3 ML nebule NEB PRN (05:50)
[2019-05-19] MEDS ORDERED: diltiazem-NS 100mg/100ml 100 ML IV SCH (06:00)
--- NOTE | 2019-05-19 07:28 | NUR ---
Received report from ANGELITA Velásquez from ED. Patient will be arriving to room 3023B.
--- NOTE | 2019-05-19 07:45 | NUR ---
Patient arrived to room 3023B via gurney. Patient ambulated from the gurney to the bed. Vital signs are temp: 97.8, HR 152, 98% 3.5L, RR 40, BP 160/90. Bed locked and lowered, side rails up x 2, nonskid socks on, call light in reach, and all patient needs met. Patient resting comfortably and in no apparent distress.
[2019-05-19 08:00] VITALS: BP 160/90
[2019-05-19] MEDS ORDERED: non-formulary drug (Beclomethasone Dipropionate (Qvar Redihaler) 2 PUFFS) IH SCH (08:00)
[2019-05-19] MEDS ORDERED: non-formulary drug (Tiotropium Bromide (Spiriva) 1 CAP) IH SCH (08:00)
[2019-05-19] MEDS: ipratropium 0.5 MG/2.5ML nebule IH SCH ×3 (08:44→21:02)
[2019-05-19] MEDS: budesonide 0.5mg/2ml UD nebule IH SCH ×2 (08:44→21:03)
[2019-05-19] MEDS: carVEDilol 12.5mg tablet PO SCH ×2 (09:48→20:52)
[2019-05-19] MEDS: furosemide 40mg tablet PO SCH ×2 (09:48→20:00)
[2019-05-19] MEDS: apixaban 5mg tablet PO SCH ×2 (09:48→20:52)
[2019-05-19] MEDS: spironolactone 25 MG tablet PO SCH (09:48)
[2019-05-19] MEDS: diltiazem CD 180mg cap (once-daily) PO SCH (09:48)
[2019-05-19] MEDS: sacubitril/valsartan 24mg-26mg tablet PO SCH ×2 (10:03→20:51)
[2019-05-19 11:00] VITALS: BP 157/99
--- NOTE | 2019-05-19 12:34 | NUR ---
Paged Dr. Lieberman regarding his heart rate. PAGER ID: [phone] MESSAGE: Irvin Ordoñez. Rm. [phone]. FYI all morning medications administered, IV Cardizem pushed, Amio and Cardizem drip DC'ed and heart rate still trending 140-150. Thank you. Paulette GOLDSTEIN x [phone]
--- NOTE | 2019-05-19 12:54 | NUR ---
New order from Dr. Lieberman: 180 mg PO cardizem CD once now. Patient BP 157/99. HR in 140-150's.
[2019-05-19] MEDS ORDERED: diltiazem CD 180mg cap (once-daily) PO ONE (12:55)
[2019-05-19 15:00] VITALS: BP 147/102
--- NOTE | 2019-05-19 18:26 | NUR ---
Problems reprioritized. Patient report given, questions answered & plan of care reviewed with ANGELITA Buchanan. Patient stable at transfer of care.
--- NOTE | 2019-05-19 18:27 | NUR ---
Problems reprioritized. Patient report given, questions answered & plan of care reviewed with Dewayne GOLDSTEIN. Patient stable at transfer of care.
--- NOTE | 2019-05-19 18:28 | NUR ---
Orientee documentation: I have reviewed and agree with all interventions, assessments performed and documented by ANGELITA Caldwell. Orientee Medication Administration: For this medication-pass time frame, all medication were reviewed, dispensed, administered and documented per hospital policy by Paulette GOLDSTEIN.
--- NOTE | 2019-05-19 18:49 | NUR ---
Patient in room PCU 3023B. I have received report from Olga Lidia RN and ANGELITA Caldwell and had the opportunity to ask questions and assume patient care. Patient awake for bedside report and stable at this time. Remains in atrial flutter with HR in 110's. On room air and saline locked at this time. Will continue to monitor closely.
[2019-05-19 19:00] VITALS: BP 135/65
[2019-05-19] MEDS: insulin Lispro (HumaLOG) vial - multi-dose SQ SCH (19:03)
[2019-05-19] MEDS: zolpidem 5mg tablet PO PRN (20:51)
[2019-05-19] MEDS ORDERED: insulin glargine (Lantus) pen - multi-dose SQ SCH (21:00)
[2019-05-19] MEDS: insulin glargine (Lantus) pen - multi-dose SQ SCH (21:39)
[2019-05-19 23:00] VITALS: BP 144/77
[2019-05-20] VITALS (7 sets, daily range): BP systolic 100–145; BP diastolic 64–95
[2019-05-20] MEDS: ipratropium 0.5 MG/2.5ML nebule IH SCH ×4 (03:26→20:27)
[2019-05-20 05:04] LABS: BASOPHILS # (AUTO) 0.1 X10'3 (0-0.2); BASOPHILS % (AUTO) 0.5 % (0-1); EOSINOPHILS # (AUTO) 0.3 X10'3 (0-0.9); EOSINOPHILS % (AUTO) 2.5 % (0-6); HEMATOCRIT 49.9 % (42.0-52.0); HEMOGLOBIN 16.9 g/dl (14.0-17.9); LYMPHOCYTES # (AUTO) 2.8 X10'3 (1.1-4.8); LYMPHOCYTES % (AUTO) 20.1 % (21-51); MEAN CORPUSCULAR HEMOGLOBIN 31.8 PG (27.0-31.0); MEAN CORPUSCULAR HGB CONC 33.8 g/dL (33.0-36.5); MEAN PLATELET VOLUME 9.1 FL (7.4-10.4); MONOCYTES # (AUTO) 0.9 X10'3 (0-0.9); MONOCYTES % (AUTO) 6.7 % (2-12); NEUTROPHILS # (AUTO) 9.6 X10'3 (1.8-7.7); NEUTROPHILS % (AUTO) 70.2 % (42-75); PLATELET COUNT 178 X10'3 (140-440); RED BLOOD COUNT 5.31 X10'6 (4.70-6.10); RED CELL DISTRIBUTION WIDTH 14.6 % (11.5-14.5); WHITE BLOOD COUNT 13.7 X10'3 (4.5-11.0)
[2019-05-20 05:32] LABS: ALBUMIN 2.7 G/DL (3.4-5.0); ANION GAP 10 (8-16); BLOOD UREA NITROGEN 13 MG/DL (7-18); CALCIUM 8.4 MG/DL (8.5-10.1); CHLORIDE 103 MMOL/L (99-107); CREATININE 1.18 MG/DL (0.60-1.10); GLUCOSE 159 MG/DL (70-104); POTASSIUM 4.2 MMOL/L (3.5-5.1); SODIUM 137 MMOL/L (135-145); TOTAL CARBON DIOXIDE 24.5 MMOL/L (24-32); eGFR 65 ML/MIN
--- NOTE | 2019-05-20 06:30 | NUR ---
Patient in room PCU 3023. I have received report from Dewayne GOLDSTEIN and had the opportunity to ask questions and assume patient care. Patient asleep in bed. In no acute distress. Will continue to monitor.
--- NOTE | 2019-05-20 06:30 | NUR ---
Patient in room PCU 3023. I have received report from ANGELITA Buchanan and had the opportunity to ask questions and assume patient care. Patient awake and in no acute distress.
--- NOTE | 2019-05-20 06:33 | NUR ---
Problems reprioritized. Patient report given, questions answered & plan of care reviewed with ANGELITA Duggan and ANGELITA Caldwell.
[2019-05-20] MEDS: carVEDilol 12.5mg tablet PO SCH ×2 (07:18→19:13)
[2019-05-20] MEDS: apixaban 5mg tablet PO SCH ×2 (07:18→19:10)
[2019-05-20] MEDS: diltiazem CD 180mg cap (once-daily) PO SCH (07:18)
[2019-05-20] MEDS: spironolactone 25 MG tablet PO SCH (07:18)
[2019-05-20] MEDS: furosemide 40mg tablet PO SCH ×2 (07:18→19:10)
[2019-05-20] MEDS: sacubitril/valsartan 24mg-26mg tablet PO SCH ×2 (07:26→19:14)
[2019-05-20] MEDS: budesonide 0.5mg/2ml UD nebule IH SCH ×2 (08:31→20:27)
[2019-05-20] MEDS: insulin Lispro (HumaLOG) vial - multi-dose SQ SCH ×3 (09:08→19:07)
[2019-05-20] MEDS ORDERED: LORazepam 0.5 MG tablet PO PRN (09:20)
[2019-05-20] MEDS ORDERED: diltiazem CD 180mg cap (once-daily) PO ONE (09:20)
--- NOTE | 2019-05-20 09:23 | NUR ---
New orders in for Ativan 0.5mg PRN, Cardizem 360mg daily, and Cardizem 180mg one time, and carb. controlled diet put in per Dr. Lieberman.
--- NOTE | 2019-05-20 10:52 | NUR ---
Paged Dr. Lieberman about patient converting to sinus rhythm. promotional table spacer PAGER ID: [phone] MESSAGE: Irvin Ordoñez. Rm. [phone]. FYI Patient is now is sinus rhythm. Thank you. Paulette GOLDSTEIN x [phone]
--- NOTE | 2019-05-20 16:09 | NUR ---
Paged Dr. Lieberman regarding patient's bradycardic episode. PAGER ID: [phone] MESSAGE: Irvin Ordoñez. Rm. [phone]. Patient was bradycardic over a 3 minute period with the lowest heart rate of 38. Is now trending in the 70-80s now. Patient is asymptomatic. Thank you. Paulette GOLDSTEIN x [phone]
--- NOTE | 2019-05-20 16:18 | NUR ---
Put in order for pacemaker to be interrogated per Dr. Lieberman. Called [employer] for someone to come out and interrogate his pacemaker again. [employer] will be coming out tonight to interrogate.
--- NOTE | 2019-05-20 16:40 | NUR ---
Paged Dr. Lieberman regarding [employer] call. PAGER ID: [phone] MESSAGE: Irvin Ordoñez. Rm. [phone]. [employer] called. Pacemaker has a lower rate setting to 40 and security monitor may be off by 1 or 2 beats. If setting change needed, MD order required. Already interrogated today. Paulette GOLDSTEIN x [phone]
--- NOTE | 2019-05-20 17:19 | NUR ---
Orientee documentation: I have reviewed and agree with all interventions, assessments performed and documented by ANGELITA Caldwell. Orientee Medication Administration: For this medication-pass time frame, all medication were reviewed, dispensed, administered and documented per hospital policy by ANGELITA Caldwell.
--- NOTE | 2019-05-20 18:19 | NUR ---
Patient in room PCU 3023B. I have received report from ANGELITA Duggan and ANGELITA Caldwell and had the opportunity to ask questions and assume patient care. Patient awake for bedside report, on room air, saline locked and stable at this time. Will continue to monitor closely.
--- NOTE | 2019-05-20 18:22 | NUR ---
Problems reprioritized. Patient report given, questions answered & plan of care reviewed with ANGELITA Cagle. Patient stable at transfer of care.
--- NOTE | 2019-05-20 18:27 | NUR ---
Problems reprioritized. Patient report given, questions answered & plan of care reviewed with ANGELITA Buchanan. Patient stable at transfer of care.
[2019-05-20] MEDS: zolpidem 5mg tablet PO PRN (21:26)
[2019-05-20] MEDS: insulin glargine (Lantus) pen - multi-dose SQ SCH (21:57)
[2019-05-21] MEDS: ipratropium 0.5 MG/2.5ML nebule IH SCH ×2 (02:54→08:05)
[2019-05-21 03:00] VITALS: BP 114/76
[2019-05-21 05:05] LABS: BASOPHILS # (AUTO) 0.1 X10'3 (0-0.2); EOSINOPHILS # (AUTO) 0.3 X10'3 (0-0.9); HEMOGLOBIN 16.5 g/dl (14.0-17.9); MONOCYTES # (AUTO) 0.9 X10'3 (0-0.9)
[2019-05-21 05:07] LABS: BASOPHILS % (AUTO) 0.5 % (0-1); EOSINOPHILS % (AUTO) 2.8 % (0-6); HEMATOCRIT 47.7 % (42.0-52.0); LYMPHOCYTES # (AUTO) 2.6 X10'3 (1.1-4.8); LYMPHOCYTES % (AUTO) 21.8 % (21-51); MEAN CORPUSCULAR HEMOGLOBIN 31.9 PG (27.0-31.0); MEAN CORPUSCULAR HGB CONC 34.6 g/dL (33.0-36.5); MEAN CORPUSCULAR VOLUME 92.1 FL (78-98); MEAN PLATELET VOLUME 9.2 FL (7.4-10.4); MONOCYTES % (AUTO) 7.3 % (2-12); NEUTROPHILS # (AUTO) 7.9 X10'3 (1.8-7.7); NEUTROPHILS % (AUTO) 67.6 % (42-75); PLATELET COUNT 185 X10'3 (140-440); RED BLOOD COUNT 5.18 X10'6 (4.70-6.10); RED CELL DISTRIBUTION WIDTH 14.5 % (11.5-14.5); WHITE BLOOD COUNT 11.7 X10'3 (4.5-11.0)
[2019-05-21 05:17] LABS: ALBUMIN 2.7 G/DL (3.4-5.0); ANION GAP 6 (8-16); BLOOD UREA NITROGEN 17 MG/DL (7-18); BUN/CREATININE RATIO 12.9 (5.4-32.0); CALCIUM 8.9 MG/DL (8.5-10.1); CHLORIDE 102 MMOL/L (99-107); CREATININE 1.32 MG/DL (0.60-1.10); GLUCOSE 154 MG/DL (70-104); POTASSIUM 3.9 MMOL/L (3.5-5.1); SODIUM 137 MMOL/L (135-145); TOTAL CARBON DIOXIDE 28.7 MMOL/L (24-32); eGFR 57 ML/MIN
[2019-05-21 06:00] VITALS: BP 125/80
--- NOTE | 2019-05-21 06:15 | NUR ---
Patient in room PCU 3023. I have received report from ANGELITA Braun and had the opportunity to ask questions and assume patient care.
--- NOTE | 2019-05-21 06:33 | NUR ---
Problems reprioritized. Patient report given, questions answered & plan of care reviewed with ANGELITA Garcia.
[2019-05-21] MEDS ORDERED: diltiazem CD 180mg cap (once-daily) PO SCH (08:00)
[2019-05-21] MEDS: budesonide 0.5mg/2ml UD nebule IH SCH (08:05)
[2019-05-21] MEDS: apixaban 5mg tablet PO SCH (08:48)
[2019-05-21] MEDS: spironolactone 25 MG tablet PO SCH (08:48)
[2019-05-21] MEDS: carVEDilol 12.5mg tablet PO SCH (08:48)
[2019-05-21] MEDS: sacubitril/valsartan 24mg-26mg tablet PO SCH (08:48)
[2019-05-21] MEDS: furosemide 40mg tablet PO SCH (08:49)
[2019-05-21] MEDS ORDERED: DILT180C66 PO (08:59)
[2019-05-21] MEDS: insulin Lispro (HumaLOG) vial - multi-dose SQ SCH (10:01)
--- NOTE | 2019-05-21 10:25 | NUR ---
Pt discharged to home with personal belongings. He was taken to private car driven by . Medications were phoned to [facility]. Diabetic survival skills provided with Hgb A1c and follow up recommendations were provided. .
[2019-05-23] MEDS ORDERED: DULAGLUTIDE IJ SCH (08:00)
== END 2019-05-21 10:44 | disposition home or self-care (01) | DRG 194 ==
LOC: ER 00:18 → ED HOLD 05:43 → PCU 3S 07:47
PROVIDERS: ADMIT Hospitalist; ATTEND Internal Medicine
DX: I11.0 Hypertensive heart disease with heart failure (principal); E66.01 Morbid (severe) obesity due to excess calories; Z79.01 Long term (current) use of anticoagulants; I50.23 Acute on chronic systolic (congestive) heart failure; I25.10 Atherosclerotic heart disease of native coronary artery without angina pectoris; J44.9 Chronic obstructive pulmonary disease, unspecified; I48.92 Unspecified atrial flutter; F15.10 Other stimulant abuse, uncomplicated; E11.9 Type 2 diabetes mellitus without complications; I48.91 Unspecified atrial fibrillation; Z79.4 Long term (current) use of insulin; Z79.899 Other long term (current) drug therapy; I25.2 Old myocardial infarction; Z80.8 Family history of malignant neoplasm of other organs or systems; Z82.5 Family history of asthma and other chronic lower respiratory diseases; Z85.819 Personal history of malignant neoplasm of unspecified site of lip, oral cavity, and pharynx; Z90.49 Acquired absence of other specified parts of digestive tract; Z68.41 Body mass index [BMI] 40.0-44.9, adult; Z95.810 Presence of automatic (implantable) cardiac defibrillator
CPT/HCPCS: 36415; 71045; 80048; 80053; 80305; 82948; 83036; 83735; 83880; 84484; 85025; 87081; 93005; 94640; 94660; 94760; 96374; 96375; 96376; 99285; G0378; J0282; J1815; J2060; J3490; J7626

== ENCOUNTER 2019-07-09 23:16 | Emergency (ER) | payer MEDICAID ==
[~2019-07-09] VITALS: Ht 182.9 cm; Wt 129.5 kg
[2019-07-10 00:10] LABS: BASOPHILS # (AUTO) 0.1 X10'3 (0-0.2); BASOPHILS % (AUTO) 0.8 % (0-1); EOSINOPHILS # (AUTO) 0.4 X10'3 (0-0.9); EOSINOPHILS % (AUTO) 3.6 % (0-6); HEMATOCRIT 45.7 % (42.0-52.0); HEMOGLOBIN 16.1 g/dl (14.0-17.9); LYMPHOCYTES # (AUTO) 2.4 X10'3 (1.1-4.8); LYMPHOCYTES % (AUTO) 22.3 % (21-51); MEAN CORPUSCULAR HEMOGLOBIN 31.7 PG (27.0-31.0); MEAN CORPUSCULAR HGB CONC 35.2 g/dL (33.0-36.5); MEAN CORPUSCULAR VOLUME 90.3 FL (78-98); MEAN PLATELET VOLUME 9.1 FL (7.4-10.4); MONOCYTES # (AUTO) 0.7 X10'3 (0-0.9); MONOCYTES % (AUTO) 6.7 % (2-12); NEUTROPHILS # (AUTO) 7.2 X10'3 (1.8-7.7); NEUTROPHILS % (AUTO) 66.6 % (42-75); PLATELET COUNT 183 X10'3 (140-440); RED BLOOD COUNT 5.06 X10'6 (4.70-6.10); RED CELL DISTRIBUTION WIDTH 13.8 % (11.5-14.5); WHITE BLOOD COUNT 10.9 X10'3 (4.5-11.0)
[2019-07-10] MEDS ORDERED: SACU1TAB4 PO (00:48)
[2019-07-10] MEDS ORDERED: FURO40TA4 PO (00:48)
[2019-07-10] MEDS ORDERED: DILT360C32 PO (00:48)
[2019-07-10] MEDS ORDERED: CARV-50 PO (00:48)
[2019-07-10] MEDS ORDERED: APIX5TAB3 PO ×2 (00:48)
[2019-07-10 00:55] LABS: CLARITY,URINE SLIGHTLY CLOUDY (Clear); COLOR,URINE YELLOW (Yellow); GLUCOSE, URINE 500 mg/dl (Neg); KETONES,URINE NEGATIVE (Neg); LEUKOCYTE ESTERASE ,URINE NEGATIVE (Neg); NITRITES, URINE NEGATIVE (Neg); OCCULT BLOOD,URINE LARGE (Neg); PH,URINE 5.5 (4.8-8.0); PROTEIN,URINE NEGATIVE (Neg); UROBILINOGEN,URINE 0.2 E.U/dL (0.2-1.0)
[2019-07-10 00:56] LABS: UA COLLECTION TYPE CLN CATCH MIDSTREAM
[2019-07-10 00:59] LABS: WBC,URINE 0-4 /HPF (0-4)
[2019-07-10 01:00] LABS: BACTERIA,URINE NONE SEEN /HPF (Neg); RBC,URINE 50-100 /HPF (0-2); SQUAMOUS EPITHELIAL CELL,UR NONE SEEN /LPF (FEW)
[2019-07-10 01:03] LABS: ALANINE AMINOTRANSFERASE 41 U/L (12-78); ALBUMIN 3.2 G/DL (3.4-5.0); ALBUMIN/GLOBULIN RATIO 0.6 (1.1-1.5); ALKALINE PHOSPHATASE 117 IU/L (46-116); ANION GAP 6 (8-16); ASPARTATE AMINO TRANSFERASE 18 U/L (10-37); BILIRUBIN,TOTAL 0.3 MG/DL (0.1-1.0); BLOOD UREA NITROGEN 25 MG/DL (7-18); BUN/CREATININE RATIO 12.1 (5.4-32.0); CALCIUM 8.8 MG/DL (8.5-10.1); CHLORIDE 95 MMOL/L (99-107); CREATININE 2.07 MG/DL (0.60-1.10); GLUCOSE 353 MG/DL (70-104); POTASSIUM 4.3 MMOL/L (3.5-5.1); SODIUM 131 MMOL/L (135-145); TOTAL CARBON DIOXIDE 30.5 MMOL/L (24-32); TOTAL PROTEIN 8.6 G/DL (6.4-8.2); eGFR 34 ML/MIN
[2019-07-10 01:05] LABS: URINE AMPHETAMINE SCREEN NEGATIVE (Neg); URINE BARBITUATE SCREEN NEGATIVE (Neg); URINE BENZODIAZEPINES SCREEN NEGATIVE (Neg); URINE CANNABINOID SCREEN NEGATIVE (Neg); URINE COCAINE SCREEN NEGATIVE (Neg); URINE METHADONE SCREEN NEGATIVE (Neg); URINE OPIATE SCREEN NEGATIVE (Neg); URINE PHENCYCLIDINE SCREEN NEGATIVE (Neg)
[2019-07-10] MEDS ORDERED: acetaminophen 325mg tablet PO ONE (01:15)
[2019-07-10 01:27] VITALS: BP 106/67
== END 2019-07-10 01:29 | disposition home or self-care (01) ==
LOC: ER 23:17
DX: R53.1 Weakness (principal); R31.9 Hematuria, unspecified; N25.9 Disorder resulting from impaired renal tubular function, unspecified; I48.91 Unspecified atrial fibrillation; I25.10 Atherosclerotic heart disease of native coronary artery without angina pectoris; I11.0 Hypertensive heart disease with heart failure; I50.9 Heart failure, unspecified; I25.2 Old myocardial infarction; J44.9 Chronic obstructive pulmonary disease, unspecified; E11.9 Type 2 diabetes mellitus without complications; F12.90 Cannabis use, unspecified, uncomplicated; F15.90 Other stimulant use, unspecified, uncomplicated; Z56.0 Unemployment, unspecified; Z90.49 Acquired absence of other specified parts of digestive tract; Z98.890 Other specified postprocedural states; Z95.0 Presence of cardiac pacemaker; Z79.899 Other long term (current) drug therapy; Z79.4 Long term (current) use of insulin
CPT/HCPCS: 36415; 71045; 80053; 80305; 81001; 83735; 83880; 84484; 85025; 93005; 99284

== ENCOUNTER 2021-06-28 09:19 | Inpatient (IN) | payer MEDICAID ==
[~2021-06-28] VITALS: Ht 185.4 cm; Wt 122.7 kg
[~2021-06-28 09:19] MED LIST changes: +(Dulaglutide (Trulicity) 0.5 ML) SQ SCH; +ALBU8.5H17 INH; -ALBU8.5H8 INH; -DILT180C66 PO; +DILT360C32 PO; -DULA0.75 SQ; -INSU100I31 SQ; -ZOLP10TA5 PO
[2021-06-28 09:45] LABS: BASOPHILS # (AUTO) 0.1 X10'3 (0-0.2); BASOPHILS % (AUTO) 0.6 % (0-1); EOSINOPHILS # (AUTO) 0.2 X10'3 (0-0.9); EOSINOPHILS % (AUTO) 1.7 % (0-6); HEMATOCRIT 47.7 % (42.0-52.0); HEMOGLOBIN 16.4 g/dl (14.0-17.9); LYMPHOCYTES # (AUTO) 0.9 X10'3 (1.1-4.8); LYMPHOCYTES % (AUTO) 10.1 % (21-51); MEAN CORPUSCULAR HGB CONC 34.3 g/dL (33.0-36.5); MEAN CORPUSCULAR VOLUME 93.2 FL (78-98); MEAN PLATELET VOLUME 8.8 FL (7.4-10.4); MONOCYTES # (AUTO) 0.6 X10'3 (0-0.9); MONOCYTES % (AUTO) 6.7 % (2-12); NEUTROPHILS # (AUTO) 7.1 X10'3 (1.8-7.7); NEUTROPHILS % (AUTO) 80.9 % (42-75); PLATELET COUNT 119 X10'3 (140-440); RED BLOOD COUNT 5.12 X10'6 (4.70-6.10); RED CELL DISTRIBUTION WIDTH 13.2 % (11.5-14.5); WHITE BLOOD COUNT 8.8 X10'3 (4.5-11.0)
[2021-06-28 09:52] LABS: ALANINE AMINOTRANSFERASE 74 U/L (12-78); ALBUMIN 2.9 G/DL (3.4-5.0); ALBUMIN/GLOBULIN RATIO 0.5 (1.1-1.5); ALKALINE PHOSPHATASE 120 IU/L (46-116); ANION GAP 9 (8-16); ASPARTATE AMINO TRANSFERASE 43 U/L (10-37); BILIRUBIN,TOTAL 0.7 MG/DL (0.1-1.0); BLOOD UREA NITROGEN 8 MG/DL (7-18); BUN/CREATININE RATIO 7.1 (5.4-32.0); CALCIUM 8.6 MG/DL (8.5-10.1); CHLORIDE 97 MMOL/L (99-107); CREATININE 1.13 MG/DL (0.60-1.10); GLUCOSE 390 MG/DL (70-104); POTASSIUM 3.9 MMOL/L (3.5-5.1); SODIUM 134 MMOL/L (135-145); TOTAL CARBON DIOXIDE 27.9 MMOL/L (24-32); TOTAL PROTEIN 8.7 G/DL (6.4-8.2); eGFR 68 ML/MIN
--- NOTE | 2021-06-28 10:49 | NUR ---
ASIYA HOFFMAN AT BEDSIDE
[2021-06-28] MEDS ORDERED: aspirin 81mg tab.chew PO ONE (10:55)
[2021-06-28] MEDS ORDERED: nitroGLYCERIN 0.4mg SUBLingual tab SL PRN (10:55)
[2021-06-28] MEDS ORDERED: iohexol 350MG/ML 100ml bottle IV ONE (11:30)
[2021-06-28] MEDS ORDERED: insulin regular, human 10 units/0.1 ml syringe IV ONE (11:50)
[2021-06-28 11:58] LABS: MAGNESIUM 1.9 MG/DL (1.5-2.4)
[2021-06-28] MEDS ORDERED: furosemide 10 MG/1 ML 10ml inj IV ONE (13:10)
[2021-06-28] MEDS ORDERED: FLO0.4C PO (14:14)
[2021-06-28] MEDS ORDERED: INSU100I31 SQ (14:14)
[2021-06-28] MEDS ORDERED: DULA3PEN SQ ×2 (14:14→14:20)
[2021-06-28] MEDS ORDERED: PERFLUTREN PROTEIN-A MICROSPHR (Optison) 0.22 MG/ML 3ML VIAL IV ONE (14:15)
[2021-06-28] MEDS ORDERED: diphenhydrAMINE 50 mg/ml inj IV PRN (14:15)
[2021-06-28] MEDS ORDERED: mag hydrox/Alum hydrox/simeth 30ml oral suspension PO PRN (14:15)
[2021-06-28] MEDS ORDERED: acetaminophen 325mg tablet PO PRN ×2 (14:15)
[2021-06-28] MEDS ORDERED: bisacodyl 10mg suppository rectal RC PRN (14:15)
[2021-06-28] MEDS ORDERED: HYDROcodone/acetaminophen 10/325mg tab PO PRN (14:15)
[2021-06-28] MEDS ORDERED: diphenhydrAMINE 25mg capsule PO PRN (14:15)
[2021-06-28] MEDS ORDERED: magnesium 2GM in 50ml NS 50 ML IV PRN (14:15)
[2021-06-28] MEDS ORDERED: ondansetron 4mg rapidly disintigrating tab PO PRN (14:15)
[2021-06-28] MEDS ORDERED: magnesium hydroxide 30ml (MOM) UD suspension PO PRN (14:15)
[2021-06-28] MEDS ORDERED: metoclopramide 5 mg/ml inj IV PRN (14:15)
[2021-06-28] MEDS ORDERED: potassium Cl 20 mEq SR tablet PO PRN ×2 (14:15)
[2021-06-28] MEDS ORDERED: ondansetron/PF 4mg/2ml inj IV PRN (14:15)
[2021-06-28] MEDS ORDERED: magnesium 4gm in 100ml NS 100 ML IV PRN (14:15)
[2021-06-28] MEDS ORDERED: magnesium Cl slow-release 64mg tablet PO PRN (14:15)
[2021-06-28] MEDS ORDERED: LORazepam 2 mg/ml vial IV PRN (14:15)
[2021-06-28] MEDS ORDERED: HYDROcodone/acetaminophen 5mg/325mg tablet PO PRN (14:15)
[2021-06-28] MEDS ORDERED: potassium CL 10mEq/100ml bag 100 ML IV PRN (14:15)
[2021-06-28] MEDS ORDERED: ipratropium 0.5 MG/2.5ML nebule IH SCH (14:45)
[2021-06-28 16:26] VITALS: BP 116/67
[2021-06-28] MEDS ORDERED: docusate sod 100mg capsule PO SCH (20:00)
[2021-06-28] MEDS ORDERED: furosemide 40mg/4ml inj IV SCH (20:00)
[2021-06-28] MEDS ORDERED: carVEDilol 12.5mg tablet PO SCH (20:00)
[2021-06-28] MEDS ORDERED: apixaban 5mg tablet PO SCH (20:00)
[2021-06-28] MEDS ORDERED: K and/or MAG REPLACEMENT MC SCH (20:00)
[2021-06-28] MEDS ORDERED: sacubitril/valsartan 49mg-51mg tablet PO SCH (20:00)
[2021-06-28] MEDS ORDERED: temazepam 15mg capsule PO PRN (21:00)
[2021-06-29] MEDS ORDERED: tamsulosin 0.4mg capsule PO SCH (08:00)
[2021-06-29] MEDS ORDERED: spironolactone 25 MG tablet PO SCH (08:00)
[2021-06-29] MEDS ORDERED: aspirin 81mg, enteric-coated 1 TAB TABLET.DR PO SCH (08:00)
== END 2021-06-28 16:28 | disposition home or self-care (01) | DRG 194 ==
LOC: ER 09:20 → ED HOLD 14:31
PROVIDERS: ADMIT Family Medicine; ATTEND Family Medicine
PROC: B32T1ZZ Computerized Tomography (CT Scan) of Left Pulmonary Artery using Low Osmolar Contrast (ICD-10-PCS; principal; 2021-06-28)
PROC: B3201ZZ Computerized Tomography (CT Scan) of Thoracic Aorta using Low Osmolar Contrast (ICD-10-PCS; 2021-06-28)
PROC: B32S1ZZ Computerized Tomography (CT Scan) of Right Pulmonary Artery using Low Osmolar Contrast (ICD-10-PCS; 2021-06-28)
DX: I13.0 Hypertensive heart and chronic kidney disease with heart failure and stage 1 through stage 4 chronic kidney disease, or unspecified chronic kidney disease (principal); I24.8 Other forms of acute ischemic heart disease; I27.20 Pulmonary hypertension, unspecified; E87.1 Hypo-osmolality and hyponatremia; E11.22 Type 2 diabetes mellitus with diabetic chronic kidney disease; E11.65 Type 2 diabetes mellitus with hyperglycemia; I50.23 Acute on chronic systolic (congestive) heart failure; I25.10 Atherosclerotic heart disease of native coronary artery without angina pectoris; I42.7 Cardiomyopathy due to drug and external agent; B19.20 Unspecified viral hepatitis C without hepatic coma; F12.90 Cannabis use, unspecified, uncomplicated; F41.9 Anxiety disorder, unspecified; F15.11 Other stimulant abuse, in remission; I48.91 Unspecified atrial fibrillation; J44.9 Chronic obstructive pulmonary disease, unspecified; N18.9 Chronic kidney disease, unspecified; N40.0 Benign prostatic hyperplasia without lower urinary tract symptoms; Z20.822 Contact with and (suspected) exposure to COVID-19; Z87.891 Personal history of nicotine dependence; I25.2 Old myocardial infarction; Z91.19 Patient's noncompliance with other medical treatment and regimen; Z95.810 Presence of automatic (implantable) cardiac defibrillator; Z56.0 Unemployment, unspecified; Z90.49 Acquired absence of other specified parts of digestive tract; Z82.5 Family history of asthma and other chronic lower respiratory diseases; Z80.8 Family history of malignant neoplasm of other organs or systems
CPT/HCPCS: 36415; 71045; 71275; 80053; 82948; 83735; 83880; 84443; 84484; 85025; 87635; 93005; 96374; 96375; 99285; C9803; G0378; J1815; J1940; Q9967

== ENCOUNTER 2021-06-30 03:48 | Inpatient (IN) | payer MEDICAID ==
[~2021-06-30] VITALS: Ht 185.4 cm; Wt 122.0 kg
[~2021-06-30 03:48] MED LIST changes: -(Dulaglutide (Trulicity) 0.5 ML) SQ SCH; -BECL10.62 IH; -DILT360C32 PO; +DULA3PEN SQ; +FLO0.4C PO; +INSU100I31 SQ
[2021-06-30 04:41] LABS: BASOPHILS % (AUTO) 0.6 % (0-1); EOSINOPHILS # (AUTO) 0.3 X10'3 (0-0.9); EOSINOPHILS % (AUTO) 3.1 % (0-6); HEMATOCRIT 49.2 % (42.0-52.0); HEMOGLOBIN 16.8 g/dl (14.0-17.9); LYMPHOCYTES # (AUTO) 1.6 X10'3 (1.1-4.8); LYMPHOCYTES % (AUTO) 18.9 % (21-51); MEAN CORPUSCULAR HEMOGLOBIN 31.9 PG (27.0-31.0); MEAN CORPUSCULAR HGB CONC 34.1 g/dL (33.0-36.5); MEAN CORPUSCULAR VOLUME 93.5 FL (78-98); MEAN PLATELET VOLUME 9.1 FL (7.4-10.4); MONOCYTES # (AUTO) 0.6 X10'3 (0-0.9); MONOCYTES % (AUTO) 7.3 % (2-12); NEUTROPHILS # (AUTO) 6.1 X10'3 (1.8-7.7); NEUTROPHILS % (AUTO) 70.1 % (42-75); PLATELET COUNT 156 X10'3 (140-440); RED BLOOD COUNT 5.26 X10'6 (4.70-6.10); RED CELL DISTRIBUTION WIDTH 13.3 % (11.5-14.5); WHITE BLOOD COUNT 8.6 X10'3 (4.5-11.0)
[2021-06-30 04:52] LABS: D-DIMER 0.24 MG/L FEU (0-0.50)
[2021-06-30 05:05] LABS: ALANINE AMINOTRANSFERASE 48 U/L (12-78); ALBUMIN 2.6 G/DL (3.4-5.0); ALBUMIN/GLOBULIN RATIO 0.5 (1.1-1.5); ALKALINE PHOSPHATASE 114 IU/L (46-116); ANION GAP 7 (8-16); ASPARTATE AMINO TRANSFERASE 21 U/L (10-37); BILIRUBIN,TOTAL 0.3 MG/DL (0.1-1.0); BLOOD UREA NITROGEN 20 MG/DL (7-18); BUN/CREATININE RATIO 10.1 (5.4-32.0); CALCIUM 8.9 MG/DL (8.5-10.1); CHLORIDE 92 MMOL/L (99-107); CREATININE 1.99 MG/DL (0.60-1.10); POTASSIUM 3.8 MMOL/L (3.5-5.1); SODIUM 128 MMOL/L (135-145); TOTAL CARBON DIOXIDE 29.2 MMOL/L (24-32); TOTAL PROTEIN 8.2 G/DL (6.4-8.2); eGFR 35 ML/MIN
[2021-06-30 05:08] LABS: GLUCOSE 642 MG/DL (70-104)
[2021-06-30] MEDS ORDERED: normal saline 1000ML IV soln IVB ONE (05:10)
[2021-06-30] MEDS ORDERED: insulin regular, human 10 units/0.1 ml syringe IV ONE (05:10)
[2021-06-30] MEDS ORDERED: insulin regular, human 10 units/0.1 ml syringe SQ ONE (05:10)
[2021-06-30] MEDS ORDERED: magnesium 2GM in 50ml NS 50 ML IV PRN (06:00)
[2021-06-30] MEDS ORDERED: magnesium Cl slow-release 64mg tablet PO PRN (06:00)
[2021-06-30] MEDS ORDERED: morphine 2 MG/ML inj. syringe IV PRN (06:00)
[2021-06-30] MEDS ORDERED: aminophylline 250mg/10ml inj. IV PRN (06:00)
[2021-06-30] MEDS ORDERED: PERFLUTREN PROTEIN-A MICROSPHR (Optison) 0.22 MG/ML 3ML VIAL IV ONE (06:00)
[2021-06-30] MEDS ORDERED: normal saline 1000ml 1,000 ML IV SCH (06:00)
[2021-06-30] MEDS ORDERED: acetaminophen 325mg tablet PO PRN ×2 (06:00)
[2021-06-30] MEDS ORDERED: regadenoson 0.4mg/5ml syringe IV PRN (06:00)
[2021-06-30] MEDS ORDERED: potassium CL 10mEq/100ml bag 100 ML IV PRN (06:00)
[2021-06-30] MEDS ORDERED: metoprolol tartrate 1mg/ml inj IV PRN (06:00)
[2021-06-30] MEDS ORDERED: nitroGLYCERIN 0.4mg SUBLingual tab SL PRN (06:00)
[2021-06-30] MEDS ORDERED: potassium Cl 20 mEq SR tablet PO PRN ×2 (06:00)
[2021-06-30] MEDS ORDERED: magnesium 4gm in 100ml NS 100 ML IV PRN (06:00)
[2021-06-30] MEDS ORDERED: dextrose ORAL solution 15 GM/59 ML bottle PO PRN ×2 (06:10)
[2021-06-30] MEDS ORDERED: MESSAGE TO PHARMACY PO ONE (06:10)
[2021-06-30] MEDS ORDERED: dextrose 50%-water 50ml dispensing syringe IV PRN ×2 (06:10)
[2021-06-30] MEDS ORDERED: glucagon, human recombinant 1mg kit SUBCUT PRN (06:10)
[2021-06-30] MEDS: K and/or MAG REPLACEMENT MC SCH ×2 (07:09→20:00)
--- NOTE | 2021-06-30 07:16 | NUR ---
ADMISSION DOC PAGED FOR INSULIN ORDERS.
[2021-06-30 07:20] LABS: URINE AMPHETAMINE SCREEN POSITIVE (Neg); URINE BARBITUATE SCREEN NEGATIVE (Neg); URINE BENZODIAZEPINES SCREEN NEGATIVE (Neg); URINE CANNABINOID SCREEN NEGATIVE (Neg); URINE COCAINE SCREEN NEGATIVE (Neg); URINE METHADONE SCREEN NEGATIVE (Neg); URINE OPIATE SCREEN NEGATIVE (Neg); URINE PHENCYCLIDINE SCREEN NEGATIVE (Neg)
[2021-06-30] MEDS: nicotine 14mg patch - 24hr TD SCH (07:53)
[2021-06-30] MEDS: furosemide 40mg/4ml inj IV SCH ×2 (07:53→19:27)
[2021-06-30] MEDS ORDERED: albuterol 2.5 MG/3 ML nebule NEB SCH (08:00)
[2021-06-30] MEDS ORDERED: heparin, porcine 5000 units/ml vial SQ SCH (08:00)
[2021-06-30 08:27] LABS: HEMOGLOBIN A1C 10.4 % (4.5-6.2)
[2021-06-30] MEDS: insulin Lispro (HumaLOG) vial - multi-dose SQ SCH ×3 (09:23→21:23)
--- NOTE | 2021-06-30 14:08 | NUR ---
PT CALLED AND ASKED HER TO CALL ED NURSE TO NOTIFY THAT HE IS "STARVING". NOTIFIED THAT DR. GLASS PAGED FOR DIET ORDER IF CURRENT ORDER NOT VALID.
[2021-06-30] MEDS ORDERED: methylPREDNISolone sod succ 125mg/2ml vial IV ONE (14:30)
--- NOTE | 2021-06-30 15:44 | NUR ---
Message: Re: Jonnie Ordoñez. Room: 3026A. Pt has CHF and EF of 25%. Do you want NS running at 70ml/hr? -Elisa [facility] #[phone] -Dr. Mahoney paged concerning med orders.
[2021-06-30 16:30] VITALS: BP 128/69
--- NOTE | 2021-06-30 18:18 | NUR ---
Problems reprioritized. Patient report given, questions answered & plan of care reviewed with Aurelia GOLDSTEIN.
--- NOTE | 2021-06-30 18:42 | NUR ---
Problems reprioritized. Patient report given, questions answered & plan of care reviewed with Rhea GOLDSTEIN.
[2021-06-30 19:00] VITALS: BP 149/92
[2021-06-30] MEDS: sacubitril/valsartan 49mg-51mg tablet PO SCH (19:26)
[2021-06-30] MEDS: carVEDilol 12.5mg tablet PO SCH (19:27)
[2021-06-30] MEDS: methylPREDNISolone sod succ 125mg/2ml vial IV SCH (19:27)
[2021-06-30] MEDS: apixaban 5mg tablet PO SCH (19:27)
[2021-06-30] MEDS: HYDROcodone/acetaminophen 5mg/325mg tablet PO PRN (19:35)
[2021-06-30] MEDS ORDERED: temazepam 15mg capsule PO PRN (21:00)
[2021-06-30] MEDS: ipratropium/albuterol 3ml nebule NEB SCH ×2 (21:06→23:00)
[2021-06-30] MEDS: insulin glargine (Lantus) pen - multi-dose SQ SCH (21:22)
[2021-06-30 23:42] VITALS: BP 134/84
[2021-07-01] VITALS (14 sets, daily range): BP systolic 103–130; BP diastolic 59–94
--- NOTE | 2021-07-01 01:47 | NUR ---
called and was updated on plan of care. Then was transferred into the room to talk with Pt. Daughter also talked with Pt. then called the desk back and stated that daughter told her Pt was slurring words and talking about this place being "[place]". This RN put on hold and went to check again on the Pt. Pt is A&O times four, speech is clear. Pt was also asking if he could have his blood sugar checked since it was close to 0200. He was also asking for crackers to snack on. Pt was informed that his blood sugar was too high at 2100 to have a snack but maybe after the recheck. Pupils are PERRLA. No motor or sensory deficits noted. Will continue to assess and intervene as appropriate.
[2021-07-01] MEDS: ipratropium/albuterol 3ml nebule NEB SCH ×6 (02:13→23:00)
[2021-07-01] MEDS: insulin Lispro (HumaLOG) vial - multi-dose SQ SCH ×6 (02:25→21:11)
[2021-07-01] MEDS: methylPREDNISolone sod succ 125mg/2ml vial IV SCH ×4 (02:37→19:39)
--- NOTE | 2021-07-01 06:10 | NUR ---
Patient in room PCU 3026. I have received report from Aurelia GOLDSTEIN and had the opportunity to ask questions and assume patient care.
[2021-07-01 06:26] LABS: BASOPHILS % (AUTO) 0.2 % (0-1); EOSINOPHILS % (AUTO) 0 % (0-6); HEMATOCRIT 53.7 % (42.0-52.0); LYMPHOCYTES # (AUTO) 1.1 X10'3 (1.1-4.8); LYMPHOCYTES % (AUTO) 8.7 % (21-51); MEAN CORPUSCULAR HGB CONC 34.2 g/dL (33.0-36.5); MEAN CORPUSCULAR VOLUME 93.5 FL (78-98); MEAN PLATELET VOLUME 8.9 FL (7.4-10.4); MONOCYTES # (AUTO) 0.2 X10'3 (0-0.9); MONOCYTES % (AUTO) 1.6 % (2-12); NEUTROPHILS # (AUTO) 11.5 X10'3 (1.8-7.7); NEUTROPHILS % (AUTO) 89.5 % (42-75); PLATELET COUNT 171 X10'3 (140-440); RED BLOOD COUNT 5.74 X10'6 (4.70-6.10); RED CELL DISTRIBUTION WIDTH 13.2 % (11.5-14.5); WHITE BLOOD COUNT 12.8 X10'3 (4.5-11.0)
[2021-07-01 06:34] LABS: HEMOGLOBIN 18.3 g/dl (14.0-17.9)
[2021-07-01 07:11] LABS: ALANINE AMINOTRANSFERASE 43 U/L (12-78); ALBUMIN 2.7 G/DL (3.4-5.0); ALBUMIN/GLOBULIN RATIO 0.4 (1.1-1.5); ALKALINE PHOSPHATASE 118 IU/L (46-116); ANION GAP 9 (8-16); ASPARTATE AMINO TRANSFERASE 20 U/L (10-37); BILIRUBIN,TOTAL 0.5 MG/DL (0.1-1.0); BLOOD UREA NITROGEN 27 MG/DL (7-18); CALCIUM 9.1 MG/DL (8.5-10.1); CHLORIDE 94 MMOL/L (99-107); CHOL/HDL RATIO 5.6 (0.00-4.99); CHOLESTEROL 195 MG/DL (0-200); CREATININE 1.42 MG/DL (0.60-1.10); GLUCOSE 363 MG/DL (70-104); HDL CHOLESTEROL 35 MG/DL (35-60); LDL CHOLESTEROL 142 MG/DL (50-100); POTASSIUM 3.9 MMOL/L (3.5-5.1); SODIUM 129 MMOL/L (135-145); TOTAL CARBON DIOXIDE 26.3 MMOL/L (24-32); TOTAL PROTEIN 8.8 G/DL (6.4-8.2); TRIGLYCERIDES 87 MG/DL (20-135); eGFR 52 ML/MIN
[2021-07-01] MEDS: apixaban 5mg tablet PO SCH ×2 (07:53→19:38)
[2021-07-01] MEDS: nicotine 14mg patch - 24hr TD SCH (07:54)
[2021-07-01] MEDS: tamsulosin 0.4mg capsule PO SCH (07:54)
[2021-07-01] MEDS ORDERED: ipratropium 0.5 MG/2.5ML nebule NEB SCH (08:00)
[2021-07-01] MEDS: K and/or MAG REPLACEMENT MC SCH ×2 (08:00→18:50)
[2021-07-01] MEDS ORDERED: regadenoson 0.4mg/5ml syringe IV PRN (08:45)
[2021-07-01] MEDS: furosemide 40mg/4ml inj IV SCH ×2 (11:00→19:39)
[2021-07-01] MEDS: carVEDilol 12.5mg tablet PO SCH ×2 (11:03→19:38)
[2021-07-01] MEDS: sacubitril/valsartan 49mg-51mg tablet PO SCH ×2 (13:14→21:02)
[2021-07-01] MEDS: spironolactone 25 MG tablet PO SCH (13:14)
--- NOTE | 2021-07-01 15:45 | NUR ---
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 Noted lipid panel WNL with the exception of elevated LDL 142 mg/dL. Per [employer] note pt to start on a statin. Pt with T2DM, current A1c 10.4%. Per H&P pt reports being noncompliant with medications and takes medications randomly. Attempted visit with pt at bedside however pt sleeping. Written DM education with RD contact information placed at bedside. Pt would benefit from f/u verbal education. Will continue to follow. Addendum: 07/01/21 at [address] Amended: Links added.
--- NOTE | 2021-07-01 16:05 | NUR ---
Message: Re: Jonnie Ordoñez. Room: 3026A. Terrie results are in. Pt wondering if he's going to be discharged to day or tomorrow. -[facility] #[phone] -Dr. Mahoney paged concerning Pt's DC.
--- NOTE | 2021-07-01 16:37 | NUR ---
Message: Re: Jonnie Ordoñez. Room: 6596A. Will Pt be DC'd today? Pt is asking. -[facility] #[phone] -Dr. Mahoney paged concerning Pt orders/DC
--- NOTE | 2021-07-01 18:15 | NUR ---
Problems reprioritized. Patient report given, questions answered & plan of care reviewed with Brianna GOLDSTEIN.
[2021-07-01] MEDS: ondansetron/PF 4mg/2ml inj IV PRN (18:38)
[2021-07-01] MEDS: HYDROcodone/acetaminophen 5mg/325mg tablet PO PRN (21:03)
[2021-07-01] MEDS: insulin glargine (Lantus) pen - multi-dose SQ SCH (21:13)
[2021-07-02 02:00] VITALS: BP 102/71
[2021-07-02] MEDS: methylPREDNISolone sod succ 125mg/2ml vial IV SCH ×2 (02:00→08:12)
[2021-07-02] MEDS: ipratropium/albuterol 3ml nebule NEB SCH ×3 (02:44→10:49)
[2021-07-02 06:00] VITALS: BP 121/72
--- NOTE | 2021-07-02 06:15 | NUR ---
Patient in room PCU 3026. I have received report from Brianna GOLDSTEIN and had the opportunity to ask questions and assume patient care.
[2021-07-02] MEDS: ondansetron/PF 4mg/2ml inj IV PRN (07:06)
[2021-07-02 07:52] LABS: BASOPHILS # (AUTO) 0.1 X10'3 (0-0.2); BASOPHILS % (AUTO) 0.2 % (0-1); EOSINOPHILS % (AUTO) 0 % (0-6); HEMATOCRIT 48.8 % (42.0-52.0); HEMOGLOBIN 16.7 g/dl (14.0-17.9); LYMPHOCYTES # (AUTO) 1.7 X10'3 (1.1-4.8); LYMPHOCYTES % (AUTO) 7.3 % (21-51); MEAN CORPUSCULAR HEMOGLOBIN 32.2 PG (27.0-31.0); MEAN CORPUSCULAR HGB CONC 34.3 g/dL (33.0-36.5); MEAN CORPUSCULAR VOLUME 93.9 FL (78-98); MEAN PLATELET VOLUME 9.5 FL (7.4-10.4); MONOCYTES # (AUTO) 1.1 X10'3 (0-0.9); MONOCYTES % (AUTO) 4.6 % (2-12); NEUTROPHILS # (AUTO) 20.4 X10'3 (1.8-7.7); NEUTROPHILS % (AUTO) 87.9 % (42-75); PLATELET COUNT 187 X10'3 (140-440); RED CELL DISTRIBUTION WIDTH 13.2 % (11.5-14.5); WHITE BLOOD COUNT 23.2 X10'3 (4.5-11.0)
[2021-07-02] MEDS ORDERED: atorvastatin 20mg tablet PO SCH (08:00)
[2021-07-02] MEDS: K and/or MAG REPLACEMENT MC SCH (08:00)
[2021-07-02 08:02] LABS: ALANINE AMINOTRANSFERASE 33 U/L (12-78); ALBUMIN 2.4 G/DL (3.4-5.0); ALBUMIN/GLOBULIN RATIO 0.4 (1.1-1.5); ALKALINE PHOSPHATASE 107 IU/L (46-116); ANION GAP 8 (8-16); ASPARTATE AMINO TRANSFERASE 18 U/L (10-37); BILIRUBIN,TOTAL 0.5 MG/DL (0.1-1.0); BLOOD UREA NITROGEN 58 MG/DL (7-18); CALCIUM 8.7 MG/DL (8.5-10.1); CHLORIDE 94 MMOL/L (99-107); CREATININE 2.85 MG/DL (0.60-1.10); GLUCOSE 296 MG/DL (70-104); POTASSIUM 4.6 MMOL/L (3.5-5.1); SODIUM 129 MMOL/L (135-145); TOTAL CARBON DIOXIDE 27.2 MMOL/L (24-32); TOTAL PROTEIN 7.9 G/DL (6.4-8.2); eGFR 23 ML/MIN
[2021-07-02] MEDS: carVEDilol 12.5mg tablet PO SCH (08:09)
[2021-07-02] MEDS: apixaban 5mg tablet PO SCH (08:10)
[2021-07-02] MEDS: tamsulosin 0.4mg capsule PO SCH (08:10)
[2021-07-02] MEDS: spironolactone 25 MG tablet PO SCH (08:10)
[2021-07-02] MEDS: sacubitril/valsartan 49mg-51mg tablet PO SCH (08:11)
[2021-07-02] MEDS: nicotine 14mg patch - 24hr TD SCH (08:12)
[2021-07-02] MEDS: furosemide 40mg/4ml inj IV SCH (08:12)
[2021-07-02 08:33] LABS: BUN/CREATININE RATIO 20.4 (5.4-32.0)
--- NOTE | 2021-07-02 11:03 | NUR ---
PAGER ID: [phone] MESSAGE: RE: Jonnie Ordoñez. Room: 3026A. Pt would like to speak to you when you get a chance concerning todays plan. -Dio [facility] #[phone] -Dr Lieberman paged concerning Pt wanting to go home.
[2021-07-02 11:30] VITALS: BP 99/49
[2021-07-02] MEDS ORDERED: ATOR20TA66 PO (11:31)
[2021-07-02] MEDS: insulin Lispro (HumaLOG) vial - multi-dose SQ SCH (12:36)
--- NOTE | 2021-07-02 12:50 | NUR ---
Pt DC'd home with . Pt alert and oriented and vitals WNL upon DC. per Dr. Lieberman; Pt is stable for DC. IV removed, canula intact. Tele-box removed and returned to tele-tech. DC paperwork printed out and gone over with Pt. Allowed Pt to ask questions concerning DC and then answered them. New prescription called into [facility]. Pt's home meds retrieved from pharmacy and returned to Pt at [place]. Pt instructed to get renal panel blood work on Wednesday 07/05 through PCP, and stated that he will do this on Sunday. Pt's belongings gathered and sent with Pt. Pt wheeled down to lobby in wheelchair and left in private vehicle for home with .
== END 2021-07-02 12:52 | disposition home or self-care (01) | DRG 194 ==
LOC: ER 03:49 → ED HOLD 06:06 → PCU 3S 15:29
PROVIDERS: ADMIT Internal Medicine; ATTEND Family Medicine
PROC: 4A02XM4 Measurement of Cardiac Total Activity, External Approach (ICD-10-PCS; principal; 2021-07-01)
PROC: 3E073KZ Introduction of Other Diagnostic Substance into Coronary Artery, Percutaneous Approach (ICD-10-PCS; 2021-07-01)
DX: I13.0 Hypertensive heart and chronic kidney disease with heart failure and stage 1 through stage 4 chronic kidney disease, or unspecified chronic kidney disease (principal); N17.9 Acute kidney failure, unspecified; E87.1 Hypo-osmolality and hyponatremia; E86.0 Dehydration; I42.7 Cardiomyopathy due to drug and external agent; I48.0 Paroxysmal atrial fibrillation; J44.1 Chronic obstructive pulmonary disease with (acute) exacerbation; E11.22 Type 2 diabetes mellitus with diabetic chronic kidney disease; I50.23 Acute on chronic systolic (congestive) heart failure; E11.65 Type 2 diabetes mellitus with hyperglycemia; F15.10 Other stimulant abuse, uncomplicated; B19.20 Unspecified viral hepatitis C without hepatic coma; F12.90 Cannabis use, unspecified, uncomplicated; F41.9 Anxiety disorder, unspecified; F17.210 Nicotine dependence, cigarettes, uncomplicated; E66.01 Morbid (severe) obesity due to excess calories; G89.29 Other chronic pain; I25.10 Atherosclerotic heart disease of native coronary artery without angina pectoris; N18.30 Chronic kidney disease, stage 3 unspecified; N40.0 Benign prostatic hyperplasia without lower urinary tract symptoms; Z79.01 Long term (current) use of anticoagulants; Z79.4 Long term (current) use of insulin; Z79.899 Other long term (current) drug therapy; Z80.8 Family history of malignant neoplasm of other organs or systems; I25.2 Old myocardial infarction; Z82.5 Family history of asthma and other chronic lower respiratory diseases; Z91.14 Patient's other noncompliance with medication regimen; Z95.810 Presence of automatic (implantable) cardiac defibrillator; Z56.0 Unemployment, unspecified; Z90.49 Acquired absence of other specified parts of digestive tract; Z68.35 Body mass index [BMI] 35.0-35.9, adult; Z72.89 Other problems related to lifestyle; Z71.41 Alcohol abuse counseling and surveillance of alcoholic; Z71.6 Tobacco abuse counseling
CPT/HCPCS: 36415; 71045; 78452; 80053; 80061; 80305; 82948; 83036; 83735; 83880; 84145; 84484; 85025; 85379; 87081; 93005; 93017; 93306; 94640; 94760; 96361; 96372; 96374; 97116; 97161; 99285; A9500; G0378; J1644; J1815; J1940; J2405; J2785; J2930; J7030

== ENCOUNTER 2021-12-02 00:52 | Emergency (ER) | payer MEDICAID ==
[~2021-12-02] VITALS: Ht 185.4 cm; Wt 127.0 kg
[~2021-12-02 00:52] MED LIST changes: -ALD25T PO; +ATOR20TA66 PO; -FURO40TA4 PO
[2021-12-02 01:12] VITALS: BP 192/101
== END 2021-12-02 07:14 | disposition left against medical advice (07) ==
LOC: ER 00:52
DX: M79.604 Pain in right leg (principal); M79.605 Pain in left leg; Z53.21 Procedure and treatment not carried out due to patient leaving prior to being seen by health care provider

== ENCOUNTER 2023-06-12 10:34 | Inpatient (IN) | payer MEDICAID ==
[~2023-06-12] VITALS: Ht 182.9 cm; Wt 120.5 kg
[2023-06-12 11:20] LABS: BASOPHILS # (AUTO) 0.1 X10'3 (0-0.2); BASOPHILS % (AUTO) 0.5 % (0-1); EOSINOPHILS # (AUTO) 0.2 X10'3 (0-0.9); EOSINOPHILS % (AUTO) 1.5 % (0-6); HEMATOCRIT 52.5 % (42.0-52.0); HEMOGLOBIN 17.2 g/dl (14.0-17.9); LYMPHOCYTES # (AUTO) 2.1 X10'3 (1.1-4.8); MEAN CORPUSCULAR HEMOGLOBIN 30.5 PG (27.0-31.0); MEAN CORPUSCULAR HGB CONC 32.8 g/dL (33.0-36.5); MEAN CORPUSCULAR VOLUME 93.2 FL (78-98); MEAN PLATELET VOLUME 9.1 FL (7.4-10.4); MONOCYTES % (AUTO) 7.7 % (2-12); NEUTROPHILS # (AUTO) 9.9 X10'3 (1.8-7.7); NEUTROPHILS % (AUTO) 74.3 % (42-75); PLATELET COUNT 196 X10'3 (140-440); RED BLOOD COUNT 5.64 X10'6 (4.70-6.10); RED CELL DISTRIBUTION WIDTH 15.1 % (11.5-14.5); WHITE BLOOD COUNT 13.4 X10'3 (4.5-11.0)
[2023-06-12 11:40] LABS: ALANINE AMINOTRANSFERASE 43 U/L (12-78); ALBUMIN/GLOBULIN RATIO 0.5 (1.1-1.5); ALKALINE PHOSPHATASE 116 IU/L (46-116); ANION GAP 11 (8-16); ASPARTATE AMINO TRANSFERASE 20 U/L (10-37); BILIRUBIN,TOTAL 0.9 MG/DL (0.1-1.0); BLOOD UREA NITROGEN 27 MG/DL (7-18); BUN/CREATININE RATIO 7.9 (10.0-20.0); CALCIUM 9.3 MG/DL (8.5-10.1); CHLORIDE 93 MMOL/L (99-107); GLUCOSE 256 MG/DL (70-104); POTASSIUM 3.5 MMOL/L (3.5-5.1); SODIUM 132 MMOL/L (135-145); TOTAL CARBON DIOXIDE 28.5 MMOL/L (24-32); TOTAL PROTEIN 8.7 G/DL (6.4-8.2); eCRCL 27 ML/MIN; eGFR 19 ML/MIN
[2023-06-12 11:47] LABS: PRO BRAIN NATRIURETIC PEPTIDE 875 PG/ML (0-125)
[2023-06-12] MEDS ORDERED: normal saline 1000ml 1,000 ML IV ONE ×2 (12:05→13:55)
[2023-06-12] MEDS ORDERED: piperacillin/tazo 4.5gm/100ml 100 ML IV STA (13:19)
[2023-06-12] MEDS ORDERED: VANCOmycin 2,000MG in NS 500ml IV soln IV ONE (13:25)
[2023-06-12 13:28] LABS: BILIRUBIN,URINE SMALL (Neg); CLARITY,URINE CLOUDY (Clear); COLOR,URINE YELLOW (Yellow); GLUCOSE, URINE 500 mg/dl (Neg); KETONES,URINE NEGATIVE (Neg); LEUKOCYTE ESTERASE ,URINE NEGATIVE (Neg); NITRITES, URINE NEGATIVE (Neg); OCCULT BLOOD,URINE LARGE (Neg); PH,URINE 5.5 (4.8-8.0); PROTEIN,URINE 30 mg/dl (Neg); UROBILINOGEN,URINE 0.2 E.U/dL (0.2-1.0)
[2023-06-12 13:30] LABS: URINE AMPHETAMINE SCREEN POSITIVE (Neg); URINE BARBITUATE SCREEN NEGATIVE (Neg); URINE BENZODIAZEPINES SCREEN NEGATIVE (Neg); URINE CANNABINOID SCREEN NEGATIVE (Neg); URINE COCAINE SCREEN NEGATIVE (Neg); URINE METHADONE SCREEN NEGATIVE (Neg); URINE OPIATE SCREEN NEGATIVE (Neg); URINE PHENCYCLIDINE SCREEN NEGATIVE (Neg)
[2023-06-12] MEDS ORDERED: MESSAGE TO PHARMACY PO ONE (13:40)
[2023-06-12] MEDS ORDERED: glucagon, human recombinant 1mg kit SUBCUT PRN (13:40)
[2023-06-12] MEDS ORDERED: magnesium hydroxide 30ml (MOM) UD suspension PO PRN (13:40)
[2023-06-12] MEDS ORDERED: PERFLUTREN PROTEIN-A MICROSPHR (Optison) 0.22 MG/ML 3ML VIAL IV ONE (13:40)
[2023-06-12] MEDS ORDERED: magnesium 4gm in 100ml NS 100 ML IV PRN (13:40)
[2023-06-12] MEDS ORDERED: potassium Cl 40MEQ/1/2NS 520ml 520 ML IV PRN (13:40)
[2023-06-12] MEDS ORDERED: ondansetron/PF 4mg/2ml inj IV PRN (13:40)
[2023-06-12] MEDS ORDERED: potassium Cl 20 mEq SR tablet PO PRN ×2 (13:40)
[2023-06-12] MEDS ORDERED: mag hydrox/Alum hydrox/simeth 30ml oral suspension PO PRN (13:40)
[2023-06-12] MEDS ORDERED: dextrose 50%-water 50ml dispensing syringe IV PRN ×2 (13:40)
[2023-06-12] MEDS ORDERED: acetaminophen 325mg tablet PO PRN (13:40)
[2023-06-12] MEDS ORDERED: magnesium 2GM in 50ml NS 50 ML IV PRN (13:40)
[2023-06-12] MEDS ORDERED: DEXTROSE 15 GM of carb/4 tabs (each vial/BOTTLE has 4 tablets) PO PRN ×2 (13:40)
[2023-06-12 13:53] LABS: UA COLLECTION TYPE URINAL
[2023-06-12 13:54] LABS: SQUAMOUS EPITHELIAL CELL,UR MODERATE /LPF (FEW)
[2023-06-12 13:55] LABS: MUCUS STRANDS FEW /LPF (Neg)
[2023-06-12 13:56] LABS: RBC,URINE 20-50 /HPF (0-2)
[2023-06-12 13:57] LABS: BACTERIA,URINE FEW /HPF (Neg); CAL OXALATE CRYSTALS FEW /HPF (NEGATIVE); TRANSITIONAL EPI CELLS,URINE FEW /HPF
[2023-06-12] MEDS: K and/or MAG REPLACEMENT MC SCH (20:00)
[2023-06-12] MEDS: cefepime 1GM/NS ADD-VANTAGE 100 ML IV SCH (20:16)
[2023-06-12] MEDS: docusate sod 100mg capsule PO SCH (20:16)
[2023-06-12] MEDS: heparin, porcine 5000 units/ml vial SQ SCH (20:17)
[2023-06-12] MEDS ORDERED: ATOR20TA PO (20:38)
[2023-06-12] MEDS ORDERED: insulin glargine (Lantus) pen - multi-dose SQ SCH (21:00)
[2023-06-12 23:00] VITALS: BP 119/85; PULSE 135; RESP 18; TEMP 98.6; O2SAT 96
[2023-06-13 00:35] VITALS: PULSE 130; RESP 18; O2SAT 93
[2023-06-13] MEDS ORDERED: DAPA10TA (01:02)
[2023-06-13] MEDS ORDERED: DOXE3TAB4 PO (01:02)
[2023-06-13] MEDS ORDERED: NICO-631 TOP (01:02)
[2023-06-13] MEDS ORDERED: FURO40TA4 PO (01:02)
[2023-06-13] MEDS ORDERED: SPIR25TA5 PO (01:02)
[2023-06-13] MEDS ORDERED: HYDROcodone/acetaminophen 10/325mg tab PO PRN ×2 (01:20→09:20)
[2023-06-13] MEDS ORDERED: digoxin 250mcg/ml 2ml ampule IV ONE ×2 (01:50→04:50)
[2023-06-13] MEDS ORDERED: diltiazem 5mg/ml 5ml inj. IV ONE (01:50)
[2023-06-13 02:00] VITALS: BP 104/82; PULSE 136; RESP 18; TEMP 98.6; O2SAT 97
[2023-06-13 07:00] VITALS: BP 137/92; PULSE 132; RESP 16; TEMP 97.7; O2SAT 96
[2023-06-13 07:57] LABS: BASOPHILS # (AUTO) 0.1 X10'3 (0-0.2); BASOPHILS % (AUTO) 0.6 % (0-1); EOSINOPHILS # (AUTO) 0.3 X10'3 (0-0.9); EOSINOPHILS % (AUTO) 3.4 % (0-6); HEMATOCRIT 48.6 % (42.0-52.0); HEMOGLOBIN 16.1 g/dl (14.0-17.9); LYMPHOCYTES # (AUTO) 2.3 X10'3 (1.1-4.8); LYMPHOCYTES % (AUTO) 26.4 % (21-51); MEAN CORPUSCULAR HEMOGLOBIN 31.1 PG (27.0-31.0); MEAN CORPUSCULAR HGB CONC 33.2 g/dL (33.0-36.5); MEAN CORPUSCULAR VOLUME 93.7 FL (78-98); MONOCYTES # (AUTO) 0.8 X10'3 (0-0.9); MONOCYTES % (AUTO) 9.3 % (2-12); NEUTROPHILS # (AUTO) 5.3 X10'3 (1.8-7.7); NEUTROPHILS % (AUTO) 60.3 % (42-75); PLATELET COUNT 168 X10'3 (140-440); RED BLOOD COUNT 5.19 X10'6 (4.70-6.10); RED CELL DISTRIBUTION WIDTH 15.1 % (11.5-14.5); WHITE BLOOD COUNT 8.8 X10'3 (4.5-11.0)
[2023-06-13] MEDS: K and/or MAG REPLACEMENT MC SCH (08:00)
[2023-06-13 08:16] LABS: ALANINE AMINOTRANSFERASE 38 U/L (12-78); ALBUMIN 2.9 G/DL (3.4-5.0); ALBUMIN/GLOBULIN RATIO 0.5 (1.1-1.5); ALKALINE PHOSPHATASE 130 IU/L (46-116); ANION GAP 7 (8-16); ASPARTATE AMINO TRANSFERASE 25 U/L (10-37); BILIRUBIN,TOTAL 0.5 MG/DL (0.1-1.0); BLOOD UREA NITROGEN 24 MG/DL (7-18); BUN/CREATININE RATIO 12.6 (10.0-20.0); CALCIUM 8.9 MG/DL (8.5-10.1); CHLORIDE 100 MMOL/L (99-107); GLUCOSE 226 MG/DL (70-104); MAGNESIUM 2.4 MG/DL (1.5-2.4); POTASSIUM 4.1 MMOL/L (3.5-5.1); SODIUM 136 MMOL/L (135-145); TOTAL CARBON DIOXIDE 29.1 MMOL/L (24-32); TOTAL PROTEIN 8.5 G/DL (6.4-8.2); eCRCL 48 ML/MIN; eGFR 37 ML/MIN
[2023-06-13] MEDS ORDERED: carVEDilol 12.5mg tablet PO ONE (08:30)
[2023-06-13] MEDS ORDERED: vancomycin/NS 1 GM ADD-VANTAGE 250 ML IV SCH ×2 (09:00→14:00)
[2023-06-13] MEDS: cefepime 1GM/NS ADD-VANTAGE 100 ML IV SCH (09:01)
[2023-06-13] MEDS: heparin, porcine 5000 units/ml vial SQ SCH (09:02)
[2023-06-13] MEDS: insulin Lispro (HumaLOG) vial - multi-dose SQ SCH ×2 (09:11→13:43)
[2023-06-13] MEDS: docusate sod 100mg capsule PO SCH (09:18)
[2023-06-13 10:38] VITALS: RESP 16
[2023-06-13] MEDS ORDERED: carVEDilol 12.5mg tablet PO SCH (20:00)
[2023-06-13] MEDS ORDERED: apixaban 5mg tablet PO SCH (20:00)
[2023-06-13] MEDS ORDERED: (Sacubitril/Valsartan (Entresto 97 mg-103 mg Tablet) 1 TAB) PO SCH (20:00)
[2023-06-13] MEDS ORDERED: doxazosin mesylate 2mg tablet PO SCH (21:00)
[2023-06-14] MEDS ORDERED: DAPAGLIFLOZIN 10MG TABLET PO SCH (08:00)
[2023-06-14] MEDS ORDERED: ipratropium 0.5 MG/2.5ML nebule NEB SCH (08:00)
[2023-06-14] MEDS ORDERED: spironolactone 25 MG tablet PO SCH (08:00)
[2023-06-14] MEDS ORDERED: cefepime 1GM/NS ADD-VANTAGE 100 ML IV SCH (08:00)
[2023-06-14] MEDS ORDERED: atorvastatin 20mg tablet PO SCH (08:00)
[2023-06-14] MEDS ORDERED: tamsulosin 0.4mg capsule PO SCH (08:00)
[2023-06-14] MEDS ORDERED: VANCOMYCIN LEVEL IV ONE (20:30)
[2023-06-18] MEDS ORDERED: DULAGLUTIDE SQ SCH (08:25)
== END 2023-06-13 15:08 | disposition home or self-care (01) | DRG 201 ==
LOC: ER 10:34 → ED HOLD 13:49 → PCU 3S 23:00
PROVIDERS: ADMIT Family Medicine; ATTEND Family Medicine
DX: I48.92 Unspecified atrial flutter (principal); N17.0 Acute kidney failure with tubular necrosis; I13.0 Hypertensive heart and chronic kidney disease with heart failure and stage 1 through stage 4 chronic kidney disease, or unspecified chronic kidney disease; I42.7 Cardiomyopathy due to drug and external agent; I50.22 Chronic systolic (congestive) heart failure; I95.9 Hypotension, unspecified; E11.22 Type 2 diabetes mellitus with diabetic chronic kidney disease; Z20.822 Contact with and (suspected) exposure to COVID-19; I25.10 Atherosclerotic heart disease of native coronary artery without angina pectoris; I25.2 Old myocardial infarction; I48.91 Unspecified atrial fibrillation; J44.9 Chronic obstructive pulmonary disease, unspecified; N18.9 Chronic kidney disease, unspecified; N39.0 Urinary tract infection, site not specified; N40.0 Benign prostatic hyperplasia without lower urinary tract symptoms; Z72.0 Tobacco use; Z95.810 Presence of automatic (implantable) cardiac defibrillator; Z79.4 Long term (current) use of insulin; Z79.51 Long term (current) use of inhaled steroids; Z79.899 Other long term (current) drug therapy
CPT/HCPCS: 36415; 71045; 80053; 80305; 81001; 82948; 83605; 83735; 83880; 84484; 85025; 87040; 87081; 87088; 87502; 87503; 87811; 93005; 93306; 94760; 97161; 97530; 99285; G0378; J0692; J1160; J1644; J1815; J2543; J3370; J3490; J7030; J7040

== ENCOUNTER 2023-06-16 08:54 | Inpatient (IN) | payer MEDICAID ==
[~2023-06-16] VITALS: Ht 185.4 cm; Wt 120.1 kg
[~2023-06-16 08:54] MED LIST changes: +ATOR20TA PO; -ATOR20TA66 PO; +DAPA10TA; +DOXE3TAB4 PO; +FURO40TA4 PO; +NICO-631 TOP; +SPIR25TA5 PO
[2023-06-16] MEDS ORDERED: normal saline 1000ML IV soln IVB ONE ×2 (09:10→10:05)
[2023-06-16 09:57] LABS: BASOPHILS # (AUTO) 0.1 X10'3 (0-0.2); EOSINOPHILS # (AUTO) 0.3 X10'3 (0-0.9); EOSINOPHILS % (AUTO) 2.1 % (0-6); HEMATOCRIT 50.6 % (42.0-52.0); HEMOGLOBIN 16.8 g/dl (14.0-17.9); LYMPHOCYTES # (AUTO) 1.8 X10'3 (1.1-4.8); LYMPHOCYTES % (AUTO) 12.4 % (21-51); MEAN CORPUSCULAR HGB CONC 33.2 g/dL (33.0-36.5); MEAN CORPUSCULAR VOLUME 93.3 FL (78-98); MEAN PLATELET VOLUME 9.1 FL (7.4-10.4); MONOCYTES # (AUTO) 1.1 X10'3 (0-0.9); MONOCYTES % (AUTO) 7.4 % (2-12); NEUTROPHILS # (AUTO) 11.2 X10'3 (1.8-7.7); NEUTROPHILS % (AUTO) 77.1 % (42-75); PLATELET COUNT 166 X10'3 (140-440); RED BLOOD COUNT 5.43 X10'6 (4.70-6.10); RED CELL DISTRIBUTION WIDTH 15.2 % (11.5-14.5); WHITE BLOOD COUNT 14.5 X10'3 (4.5-11.0)
[2023-06-16] MEDS ORDERED: haloperidol lactate 5mg/ml inj IM ONE ×2 (10:05→10:20)
[2023-06-16] MEDS ORDERED: diphenhydrAMINE 50 mg/ml inj IV ONE ×2 (10:05→10:20)
[2023-06-16 10:08] LABS: ALANINE AMINOTRANSFERASE 39 U/L (12-78); ALBUMIN 2.9 G/DL (3.4-5.0); ALBUMIN/GLOBULIN RATIO 0.5 (1.1-1.5); ALKALINE PHOSPHATASE 105 IU/L (46-116); ANION GAP 8 (8-16); ASPARTATE AMINO TRANSFERASE 19 U/L (10-37); BILIRUBIN,TOTAL 0.9 MG/DL (0.1-1.0); BLOOD UREA NITROGEN 14 MG/DL (7-18); BUN/CREATININE RATIO 10.9 (10.0-20.0); CALCIUM 9.3 MG/DL (8.5-10.1); CHLORIDE 99 MMOL/L (99-107); CREATININE 1.28 MG/DL (0.60-1.10); GLUCOSE 247 MG/DL (70-104); POTASSIUM 4.2 MMOL/L (3.5-5.1); SODIUM 134 MMOL/L (135-145); TOTAL CARBON DIOXIDE 27.4 MMOL/L (24-32); eCRCL 73 ML/MIN; eGFR 58 ML/MIN
[2023-06-16 10:16] LABS: PRO BRAIN NATRIURETIC PEPTIDE 1911 PG/ML (0-125)
[2023-06-16] MEDS ORDERED: aspirin 81mg tab.chew PO ONE (10:45)
[2023-06-16] MEDS ORDERED: cloNIDine 0.1 mg tablet PO ONE (10:45)
[2023-06-16] MEDS ORDERED: nitroGLYCERIN 0.4mg/hour patch TD ONE (10:45)
[2023-06-16] MEDS ORDERED: diltiazem 5mg/ml 5ml inj. IV ONE ×3 (10:45→18:00)
[2023-06-16] MEDS ORDERED: iohexol 350MG/ML 100ml bottle IV ONE (10:49)
[2023-06-16] MEDS ORDERED: apixaban 5mg tablet PO STA (11:18)
[2023-06-16] MEDS ORDERED: diltiazem-NS 100mg/100ml 100 ML IV ONE (12:10)
[2023-06-16] MEDS ORDERED: piperacillin/tazo 3.375gm/50ml 50 ML IV ONE (12:30)
[2023-06-16] MEDS ORDERED: magnesium Cl slow-release 64mg tablet PO PRN (13:00)
[2023-06-16] MEDS ORDERED: ondansetron 4mg rapidly disintigrating tab PO PRN (13:00)
[2023-06-16] MEDS ORDERED: potassium Cl 40MEQ/1/2NS 520ml 520 ML IV PRN (13:00)
[2023-06-16] MEDS ORDERED: acetaminophen 650mg rectal suppository RC PRN (13:00)
[2023-06-16] MEDS ORDERED: acetaminophen 325mg tablet PO PRN ×2 (13:00)
[2023-06-16] MEDS ORDERED: ondansetron/PF 4mg/2ml inj IV PRN (13:00)
[2023-06-16] MEDS ORDERED: potassium Cl 20 mEq SR tablet PO PRN ×2 (13:00)
[2023-06-16] MEDS ORDERED: mag hydrox/Alum hydrox/simeth 30ml oral suspension PO PRN (13:00)
[2023-06-16] MEDS ORDERED: morphine 2 MG/ML inj. syringe IV PRN (13:00)
[2023-06-16] MEDS ORDERED: magnesium 2GM in 50ml NS 50 ML IV PRN (13:00)
[2023-06-16] MEDS ORDERED: magnesium hydroxide 30ml (MOM) UD suspension PO PRN (13:00)
[2023-06-16] MEDS ORDERED: diltiazem-NS 100mg/100ml 100 ML IV SCH (13:00)
[2023-06-16] MEDS ORDERED: magnesium 4gm in 100ml NS 100 ML IV PRN (13:00)
[2023-06-16 13:32] LABS: MAGNESIUM 2.1 MG/DL (1.5-2.4)
[2023-06-16 14:27] LABS: BILIRUBIN,URINE NEGATIVE (Neg); CLARITY,URINE CLEAR (Clear); COLOR,URINE YELLOW (Yellow); GLUCOSE, URINE 500 mg/dl (Neg); KETONES,URINE NEGATIVE (Neg); LEUKOCYTE ESTERASE ,URINE NEGATIVE (Neg); NITRITES, URINE NEGATIVE (Neg); OCCULT BLOOD,URINE SMALL (Neg); PROTEIN,URINE 100 mg/dl (Neg); UROBILINOGEN,URINE 0.2 E.U/dL (0.2-1.0)
[2023-06-16 14:30] LABS: UA COLLECTION TYPE URINAL
[2023-06-16 14:32] LABS: BACTERIA,URINE FEW /HPF (Neg); MUCUS STRANDS FEW /LPF (Neg); SQUAMOUS EPITHELIAL CELL,UR FEW /LPF (FEW); WBC,URINE 0-4 /HPF (0-4)
[2023-06-16 14:35] LABS: URINE AMPHETAMINE SCREEN POSITIVE (Neg); URINE BARBITUATE SCREEN NEGATIVE (Neg); URINE BENZODIAZEPINES SCREEN POSITIVE (Neg); URINE CANNABINOID SCREEN NEGATIVE (Neg); URINE COCAINE SCREEN NEGATIVE (Neg); URINE METHADONE SCREEN NEGATIVE (Neg); URINE OPIATE SCREEN NEGATIVE (Neg); URINE PHENCYCLIDINE SCREEN NEGATIVE (Neg)
[2023-06-16] MEDS: diltiazem-NS 100mg/100ml 100 ML IV SCH (18:13)
[2023-06-16] MEDS ORDERED: dextrose 50%-water 50ml dispensing syringe IV PRN ×2 (18:55)
[2023-06-16] MEDS ORDERED: glucagon, human recombinant 1mg kit SUBCUT PRN (18:55)
[2023-06-16] MEDS ORDERED: DEXTROSE 15 GM of carb/4 tabs (each vial/BOTTLE has 4 tablets) PO PRN ×2 (18:55)
[2023-06-16] MEDS ORDERED: MESSAGE TO PHARMACY PO ONE (18:55)
[2023-06-16] MEDS: insulin Lispro (HumaLOG) vial - multi-dose SQ SCH (19:21)
[2023-06-16 19:24] LABS: HEMOGLOBIN A1C 8.4 % (4.5-6.2)
[2023-06-16] MEDS: docusate sod 100mg capsule PO SCH (20:00)
[2023-06-16] MEDS: K and/or MAG REPLACEMENT MC SCH (20:00)
[2023-06-16 20:27] LABS: ALBUMIN 2.5 G/DL (3.4-5.0); ALBUMIN/GLOBULIN RATIO 0.5 (1.1-1.5); ANION GAP 8 (8-16); BILIRUBIN,TOTAL 0.8 MG/DL (0.1-1.0); BLOOD UREA NITROGEN 17 MG/DL (7-18); BUN/CREATININE RATIO 12.2 (10.0-20.0); CALCIUM 8.7 MG/DL (8.5-10.1); CHLORIDE 102 MMOL/L (99-107); CREATININE 1.39 MG/DL (0.60-1.10); GLUCOSE 226 MG/DL (70-104); POTASSIUM 4.2 MMOL/L (3.5-5.1); SODIUM 135 MMOL/L (135-145); TOTAL CARBON DIOXIDE 24.9 MMOL/L (24-32); TOTAL PROTEIN 7.7 G/DL (6.4-8.2); eCRCL 67 ML/MIN; eGFR 53 ML/MIN
[2023-06-16 20:28] LABS: ALANINE AMINOTRANSFERASE 35 U/L (12-78); ALKALINE PHOSPHATASE 91 IU/L (46-116); ASPARTATE AMINO TRANSFERASE 27 U/L (10-37)
[2023-06-16] MEDS: diazepam inj 5 MG/ML inj. IV PRN (20:44)
[2023-06-16] MEDS: piperacillin/tazo 3.375gm/50ml 50 ML IV SCH (20:55)
[2023-06-16] MEDS ORDERED: insulin glargine (Lantus) pen - multi-dose SQ SCH (21:00)
[2023-06-17] VITALS (30 sets, daily range): BP systolic 98–147; BP diastolic 52–98; PULSE 13–134; RESP 12–29; TEMP 97.8–98.7; O2SAT 94–97
[2023-06-17] MEDS: diazepam inj 5 MG/ML inj. IV PRN ×5 (00:41→22:55)
[2023-06-17] MEDS: morphine 2 MG/ML inj. syringe IV PRN (00:50)
[2023-06-17 03:25] LABS: BASOPHILS # (AUTO) 0.1 X10'3 (0-0.2); BASOPHILS % (AUTO) 0.7 % (0-1); EOSINOPHILS # (AUTO) 0.4 X10'3 (0-0.9); HEMATOCRIT 45.8 % (42.0-52.0); HEMOGLOBIN 15.2 g/dl (14.0-17.9); LYMPHOCYTES # (AUTO) 2.7 X10'3 (1.1-4.8); MEAN CORPUSCULAR HEMOGLOBIN 30.9 PG (27.0-31.0); MEAN CORPUSCULAR HGB CONC 33.1 g/dL (33.0-36.5); MEAN CORPUSCULAR VOLUME 93.3 FL (78-98); MEAN PLATELET VOLUME 8.9 FL (7.4-10.4); MONOCYTES # (AUTO) 1.2 X10'3 (0-0.9); MONOCYTES % (AUTO) 8.3 % (2-12); NEUTROPHILS # (AUTO) 9.7 X10'3 (1.8-7.7); PLATELET COUNT 159 X10'3 (140-440); RED BLOOD COUNT 4.91 X10'6 (4.70-6.10); WHITE BLOOD COUNT 14.1 X10'3 (4.5-11.0)
[2023-06-17 03:40] LABS: ALANINE AMINOTRANSFERASE 39 U/L (12-78); ALBUMIN 2.7 G/DL (3.4-5.0); ALBUMIN/GLOBULIN RATIO 0.5 (1.1-1.5); ALKALINE PHOSPHATASE 100 IU/L (46-116); ANION GAP 9 (8-16); ASPARTATE AMINO TRANSFERASE 45 U/L (10-37); BILIRUBIN,TOTAL 1.1 MG/DL (0.1-1.0); BLOOD UREA NITROGEN 16 MG/DL (7-18); CALCIUM 8.8 MG/DL (8.5-10.1); CHLORIDE 101 MMOL/L (99-107); CREATININE 1.33 MG/DL (0.60-1.10); GLUCOSE 144 MG/DL (70-104); POTASSIUM 4.4 MMOL/L (3.5-5.1); SODIUM 135 MMOL/L (135-145); TOTAL CARBON DIOXIDE 24.6 MMOL/L (24-32); TOTAL PROTEIN 8.4 G/DL (6.4-8.2); eCRCL 70 ML/MIN; eGFR 56 ML/MIN
[2023-06-17] MEDS: piperacillin/tazo 3.375gm/50ml 50 ML IV SCH ×3 (05:00→20:09)
[2023-06-17] MEDS: diltiazem-NS 100mg/100ml 100 ML IV SCH (06:59)
[2023-06-17] MEDS ORDERED: DEXTROSE 15 GM of carb/4 tabs (each vial/BOTTLE has 4 tablets) PO PRN ×2 (07:45)
[2023-06-17] MEDS ORDERED: dextrose 50%-water 50ml dispensing syringe IV PRN ×2 (07:45)
[2023-06-17] MEDS ORDERED: MESSAGE TO PHARMACY PO ONE (07:45)
[2023-06-17] MEDS ORDERED: glucagon, human recombinant 1mg kit SUBCUT PRN (07:45)
[2023-06-17] MEDS: K and/or MAG REPLACEMENT MC SCH ×2 (08:00→19:54)
[2023-06-17] MEDS: docusate sod 100mg capsule PO SCH ×2 (08:33→19:54)
[2023-06-17] MEDS: apixaban 5mg tablet PO SCH (08:34)
[2023-06-17] MEDS: carVEDilol 12.5mg tablet PO SCH ×2 (08:34→20:03)
[2023-06-17] MEDS: insulin Lispro (HumaLOG) vial - multi-dose SQ SCH ×4 (08:53→21:24)
[2023-06-17] MEDS ORDERED: amiodarone 150mg/dext, iso-os 100 ML IV ONE (11:05)
[2023-06-17] MEDS: amiodarone/D5 360MG/200ML BAG 200 ML IV SCH ×2 (12:03→22:56)
[2023-06-17] MEDS: LORazepam 1 MG tablet PO PRN ×2 (13:35→20:08)
[2023-06-17] MEDS: ipratropium 0.5 MG/2.5ML nebule NEB SCH ×2 (14:55→21:01)
[2023-06-17] MEDS ORDERED: furosemide 40mg tablet PO SCH (20:00)
[2023-06-17] MEDS ORDERED: apixaban 5mg tablet PO SCH (20:00)
[2023-06-17] MEDS ORDERED: carVEDilol 12.5mg tablet PO SCH (20:00)
[2023-06-17] MEDS: sacubitril/valsartan 49mg-51mg tablet PO SCH (20:04)
[2023-06-17] MEDS: DOXEPIN HCL 3 MG PO SCH (20:05)
[2023-06-17] MEDS ORDERED: insulin glargine (Lantus) pen - multi-dose SQ SCH (21:00)
[2023-06-18] VITALS (26 sets, daily range): BP systolic 87–130; BP diastolic 49–81; PULSE 79–124; RESP 14–41; TEMP 97.7–98.8; O2SAT 91–100
[2023-06-18] MEDS ORDERED: diazepam inj 5 MG/ML inj. IM ONE (01:10)
[2023-06-18] MEDS: diazepam inj 5 MG/ML inj. IV PRN ×5 (01:32→22:01)
[2023-06-18] MEDS ORDERED: ziprasidone IM 20mg inj **IM only IM ONE (02:15)
[2023-06-18] MEDS: ipratropium 0.5 MG/2.5ML nebule NEB SCH ×4 (02:19→20:13)
[2023-06-18] MEDS: piperacillin/tazo 3.375gm/50ml 50 ML IV SCH ×3 (04:16→21:08)
[2023-06-18] MEDS: morphine 2 MG/ML inj. syringe IV PRN ×2 (04:53→22:30)
[2023-06-18] MEDS: K and/or MAG REPLACEMENT MC SCH ×2 (08:00→19:07)
[2023-06-18] MEDS: docusate sod 100mg capsule PO SCH ×2 (08:00→19:06)
[2023-06-18] MEDS: tamsulosin 0.4mg capsule PO SCH (08:00)
[2023-06-18] MEDS: sacubitril/valsartan 49mg-51mg tablet PO SCH ×2 (08:00→19:05)
[2023-06-18] MEDS: DAPAGLIFLOZIN 10MG TABLET PO SCH (08:00)
[2023-06-18] MEDS: atorvastatin 20mg tablet PO SCH (08:00)
[2023-06-18] MEDS: carVEDilol 12.5mg tablet PO SCH ×2 (08:00→19:05)
[2023-06-18] MEDS: nicotine 14mg patch - 24hr TD SCH (08:00)
[2023-06-18] MEDS: amiodarone/D5 360MG/200ML BAG 200 ML IV SCH ×2 (09:29→22:01)
[2023-06-18] MEDS ORDERED: DULAGLUTIDE SQ SCH (10:00)
[2023-06-18] MEDS: ziprasidone IM 20mg inj **IM only IM PRN ×2 (11:48→19:06)
[2023-06-18] MEDS: furosemide 20 MG/2 ML vial IV SCH (19:05)
[2023-06-18] MEDS: insulin Lispro (HumaLOG) vial - multi-dose SQ SCH ×2 (19:09→22:19)
[2023-06-18] MEDS: DOXEPIN HCL 3 MG PO SCH (20:48)
[2023-06-19] VITALS (27 sets, daily range): BP systolic 92–129; BP diastolic 59–95; PULSE 10–127; RESP 18–43; TEMP 97.1–98.9; O2SAT 92–98
[2023-06-19] MEDS: diazepam inj 5 MG/ML inj. IV PRN ×3 (01:15→07:59)
[2023-06-19] MEDS: ipratropium 0.5 MG/2.5ML nebule NEB SCH ×4 (03:00→20:10)
[2023-06-19] MEDS: ziprasidone IM 20mg inj **IM only IM PRN ×3 (03:20→23:34)
[2023-06-19] MEDS: piperacillin/tazo 3.375gm/50ml 50 ML IV SCH ×3 (04:45→20:31)
[2023-06-19] MEDS: tamsulosin 0.4mg capsule PO SCH (08:00)
[2023-06-19] MEDS: apixaban 5mg tablet PO SCH ×2 (08:00→20:31)
[2023-06-19] MEDS: nicotine 14mg patch - 24hr TD SCH (08:00)
[2023-06-19] MEDS: atorvastatin 20mg tablet PO SCH (08:00)
[2023-06-19] MEDS: DAPAGLIFLOZIN 10MG TABLET PO SCH (08:00)
[2023-06-19] MEDS: carVEDilol 12.5mg tablet PO SCH ×2 (08:00→20:31)
[2023-06-19] MEDS: K and/or MAG REPLACEMENT MC SCH ×2 (08:00→20:00)
[2023-06-19] MEDS: docusate sod 100mg capsule PO SCH ×2 (08:00→20:31)
[2023-06-19] MEDS: sacubitril/valsartan 49mg-51mg tablet PO SCH ×2 (08:00→20:31)
[2023-06-19] MEDS: furosemide 20 MG/2 ML vial IV SCH ×2 (08:00→20:32)
[2023-06-19] MEDS: amiodarone/D5 360MG/200ML BAG 200 ML IV SCH ×2 (10:26→22:49)
[2023-06-19] MEDS: insulin Lispro (HumaLOG) vial - multi-dose SQ SCH (14:00)
[2023-06-19] MEDS: DOXEPIN HCL 3 MG PO SCH (21:00)
[2023-06-20] VITALS (12 sets, daily range): BP systolic 79–97; BP diastolic 42–64; PULSE 101–126; RESP 16–29; TEMP 97.7–98.2; O2SAT 92–95
[2023-06-20] MEDS: morphine 2 MG/ML inj. syringe IV PRN ×3 (01:11→10:14)
[2023-06-20] MEDS: insulin glargine (Lantus) pen - multi-dose SQ SCH ×2 (01:47→21:00)
[2023-06-20] MEDS: ipratropium 0.5 MG/2.5ML nebule NEB SCH ×4 (03:00→19:54)
[2023-06-20] MEDS: piperacillin/tazo 3.375gm/50ml 50 ML IV SCH (04:17)
[2023-06-20] MEDS: HYDROcodone/acetaminophen 5mg/325mg tablet PO PRN ×3 (04:22→23:34)
[2023-06-20] MEDS: DAPAGLIFLOZIN 10MG TABLET PO SCH (08:00)
[2023-06-20] MEDS: tamsulosin 0.4mg capsule PO SCH (08:00)
[2023-06-20] MEDS: atorvastatin 20mg tablet PO SCH (08:00)
[2023-06-20] MEDS: carVEDilol 12.5mg tablet PO SCH ×2 (08:00→20:00)
[2023-06-20] MEDS: nicotine 14mg patch - 24hr TD SCH (08:00)
[2023-06-20] MEDS: furosemide 20 MG/2 ML vial IV SCH (08:00)
[2023-06-20] MEDS: sacubitril/valsartan 49mg-51mg tablet PO SCH (08:00)
[2023-06-20] MEDS: apixaban 5mg tablet PO SCH ×2 (08:00→20:56)
[2023-06-20] MEDS: K and/or MAG REPLACEMENT MC SCH ×2 (08:00→20:00)
[2023-06-20] MEDS: docusate sod 100mg capsule PO SCH ×2 (08:00→20:56)
[2023-06-20] MEDS: insulin Lispro (HumaLOG) vial - multi-dose SQ SCH ×2 (10:22→15:11)
[2023-06-20] MEDS: normal saline 1000ml 1,000 ML IV SCH ×2 (11:20→21:59)
[2023-06-20 11:52] LABS: BASOPHILS # (AUTO) 0.1 X10'3 (0-0.2); BASOPHILS % (AUTO) 0.7 % (0-1); EOSINOPHILS # (AUTO) 0.1 X10'3 (0-0.9); EOSINOPHILS % (AUTO) 1.4 % (0-6); HEMATOCRIT 43.2 % (42.0-52.0); HEMOGLOBIN 14.2 g/dl (14.0-17.9); LYMPHOCYTES # (AUTO) 1.8 X10'3 (1.1-4.8); LYMPHOCYTES % (AUTO) 18.1 % (21-51); MEAN CORPUSCULAR HEMOGLOBIN 30.8 PG (27.0-31.0); MEAN CORPUSCULAR VOLUME 93.4 FL (78-98); MEAN PLATELET VOLUME 9.4 FL (7.4-10.4); MONOCYTES # (AUTO) 0.9 X10'3 (0-0.9); MONOCYTES % (AUTO) 8.7 % (2-12); NEUTROPHILS # (AUTO) 7.2 X10'3 (1.8-7.7); NEUTROPHILS % (AUTO) 71.1 % (42-75); PLATELET COUNT 218 X10'3 (140-440); RED BLOOD COUNT 4.63 X10'6 (4.70-6.10); RED CELL DISTRIBUTION WIDTH 14.8 % (11.5-14.5); WHITE BLOOD COUNT 10.2 X10'3 (4.5-11.0)
[2023-06-20 12:23] LABS: ALANINE AMINOTRANSFERASE 47 U/L (12-78); ALBUMIN 2.2 G/DL (3.4-5.0); ALBUMIN/GLOBULIN RATIO 0.4 (1.1-1.5); ALKALINE PHOSPHATASE 100 IU/L (46-116); ANION GAP 5 (8-16); ASPARTATE AMINO TRANSFERASE 34 U/L (10-37); BILIRUBIN,TOTAL 0.6 MG/DL (0.1-1.0); BLOOD UREA NITROGEN 23 MG/DL (7-18); BUN/CREATININE RATIO 12.5 (10.0-20.0); CALCIUM 8.6 MG/DL (8.5-10.1); CHLORIDE 99 MMOL/L (99-107); CREATININE 1.84 MG/DL (0.60-1.10); GLUCOSE 246 MG/DL (70-104); POTASSIUM 3.6 MMOL/L (3.5-5.1); SODIUM 132 MMOL/L (135-145); TOTAL CARBON DIOXIDE 28.4 MMOL/L (24-32); TOTAL PROTEIN 7.7 G/DL (6.4-8.2); eCRCL 51 ML/MIN; eGFR 38 ML/MIN
[2023-06-20] MEDS: cephalexin 500mg capsule PO SCH ×2 (14:20→20:56)
[2023-06-20] MEDS: LORazepam 1 MG tablet PO PRN (15:06)
[2023-06-20] MEDS ORDERED: normal saline 500ml IV soln 1,000 ML IV ONE (19:30)
[2023-06-20] MEDS ORDERED: normal saline 1000ml 1,000 ML IV ONE (19:41)
[2023-06-20] MEDS: DOXEPIN HCL 3 MG PO SCH (21:00)
[2023-06-21] VITALS (14 sets, daily range): BP systolic 93–116; BP diastolic 16–76; PULSE 62–126; RESP 16–21; TEMP 96.9–98.6; O2SAT 90–97
[2023-06-21] MEDS: cephalexin 500mg capsule PO SCH ×4 (02:19→20:32)
[2023-06-21] MEDS: ipratropium 0.5 MG/2.5ML nebule NEB SCH ×4 (03:00→20:06)
[2023-06-21] MEDS: morphine 2 MG/ML inj. syringe IV PRN ×3 (06:06→22:30)
[2023-06-21] MEDS: normal saline 1000ml 1,000 ML IV SCH ×3 (07:20→21:05)
[2023-06-21] MEDS: K and/or MAG REPLACEMENT MC SCH ×2 (08:00→20:00)
[2023-06-21 08:26] LABS: BASOPHILS % (AUTO) 0.3 % (0-1); EOSINOPHILS # (AUTO) 0.1 X10'3 (0-0.9); EOSINOPHILS % (AUTO) 1.1 % (0-6); HEMATOCRIT 44.4 % (42.0-52.0); HEMOGLOBIN 14.6 g/dl (14.0-17.9); LYMPHOCYTES # (AUTO) 1.5 X10'3 (1.1-4.8); LYMPHOCYTES % (AUTO) 14.3 % (21-51); MEAN CORPUSCULAR VOLUME 93.9 FL (78-98); MEAN PLATELET VOLUME 9.9 FL (7.4-10.4); MONOCYTES # (AUTO) 1.3 X10'3 (0-0.9); MONOCYTES % (AUTO) 12.3 % (2-12); NEUTROPHILS # (AUTO) 7.6 X10'3 (1.8-7.7); PLATELET COUNT 215 X10'3 (140-440); RED BLOOD COUNT 4.72 X10'6 (4.70-6.10); RED CELL DISTRIBUTION WIDTH 14.7 % (11.5-14.5); WHITE BLOOD COUNT 10.5 X10'3 (4.5-11.0)
[2023-06-21 08:39] LABS: ALANINE AMINOTRANSFERASE 42 U/L (12-78); ALBUMIN 2.3 G/DL (3.4-5.0); ALBUMIN/GLOBULIN RATIO 0.4 (1.1-1.5); ALKALINE PHOSPHATASE 97 IU/L (46-116); ANION GAP 4 (8-16); ASPARTATE AMINO TRANSFERASE 37 U/L (10-37); BLOOD UREA NITROGEN 19 MG/DL (7-18); BUN/CREATININE RATIO 11.6 (10.0-20.0); CALCIUM 8.7 MG/DL (8.5-10.1); CHLORIDE 100 MMOL/L (99-107); CREATININE 1.64 MG/DL (0.60-1.10); GLUCOSE 166 MG/DL (70-104); POTASSIUM 4.4 MMOL/L (3.5-5.1); SODIUM 135 MMOL/L (135-145); TOTAL CARBON DIOXIDE 30.6 MMOL/L (24-32); eCRCL 57 ML/MIN; eGFR 44 ML/MIN
[2023-06-21] MEDS: atorvastatin 20mg tablet PO SCH (08:45)
[2023-06-21] MEDS: docusate sod 100mg capsule PO SCH ×2 (08:45→20:33)
[2023-06-21] MEDS: nicotine 14mg patch - 24hr TD SCH (08:45)
[2023-06-21] MEDS: apixaban 5mg tablet PO SCH ×2 (08:45→20:32)
[2023-06-21] MEDS: carVEDilol 12.5mg tablet PO SCH (08:46)
[2023-06-21] MEDS: DAPAGLIFLOZIN 10MG TABLET PO SCH (08:50)
[2023-06-21] MEDS: insulin Lispro (HumaLOG) vial - multi-dose SQ SCH ×3 (08:58→18:52)
[2023-06-21] MEDS ORDERED: normal saline 1000ml 1,000 ML IV SCH ×2 (10:40→18:35)
[2023-06-21] MEDS: LORazepam 1 MG tablet PO PRN (11:04)
[2023-06-21] MEDS: HYDROcodone/acetaminophen 5mg/325mg tablet PO PRN ×2 (11:54→18:59)
[2023-06-21] MEDS: metoprolol succinate 25mg (24-HOUR) SR. Tablet PO SCH (20:33)
[2023-06-21] MEDS: insulin glargine (Lantus) pen - multi-dose SQ SCH (20:56)
[2023-06-21] MEDS: temazepam 15mg capsule PO PRN (20:59)
[2023-06-21] MEDS: DOXEPIN HCL 3 MG PO SCH (20:59)
[2023-06-22] VITALS (16 sets, daily range): BP systolic 120–153; BP diastolic 65–100; PULSE 75–126; RESP 16–22; TEMP 97–97.6; O2SAT 91–99
[2023-06-22] MEDS: HYDROcodone/acetaminophen 5mg/325mg tablet PO PRN ×2 (00:49→19:40)
[2023-06-22] MEDS: cephalexin 500mg capsule PO SCH ×4 (02:26→19:51)
[2023-06-22] MEDS: LORazepam 1 MG tablet PO PRN ×4 (02:30→22:31)
[2023-06-22] MEDS: ipratropium 0.5 MG/2.5ML nebule NEB SCH ×4 (02:53→20:05)
[2023-06-22] MEDS: morphine 2 MG/ML inj. syringe IV PRN ×3 (04:20→16:10)
[2023-06-22] MEDS: normal saline 1000ml 1,000 ML IV SCH ×2 (04:25→16:26)
[2023-06-22 07:31] LABS: BASOPHILS # (AUTO) 0.1 X10'3 (0-0.2); BASOPHILS % (AUTO) 0.6 % (0-1); EOSINOPHILS # (AUTO) 0.1 X10'3 (0-0.9); EOSINOPHILS % (AUTO) 1.5 % (0-6); HEMATOCRIT 39.6 % (42.0-52.0); HEMOGLOBIN 13.2 g/dl (14.0-17.9); LYMPHOCYTES # (AUTO) 2.1 X10'3 (1.1-4.8); LYMPHOCYTES % (AUTO) 24.4 % (21-51); MEAN CORPUSCULAR HEMOGLOBIN 31.3 PG (27.0-31.0); MEAN CORPUSCULAR HGB CONC 33.4 g/dL (33.0-36.5); MEAN CORPUSCULAR VOLUME 93.5 FL (78-98); MEAN PLATELET VOLUME 9.4 FL (7.4-10.4); MONOCYTES # (AUTO) 0.9 X10'3 (0-0.9); MONOCYTES % (AUTO) 10.7 % (2-12); NEUTROPHILS # (AUTO) 5.4 X10'3 (1.8-7.7); NEUTROPHILS % (AUTO) 62.8 % (42-75); PLATELET COUNT 203 X10'3 (140-440); RED BLOOD COUNT 4.23 X10'6 (4.70-6.10); RED CELL DISTRIBUTION WIDTH 14.6 % (11.5-14.5); WHITE BLOOD COUNT 8.7 X10'3 (4.5-11.0)
[2023-06-22] MEDS: atorvastatin 20mg tablet PO SCH (07:31)
[2023-06-22] MEDS: apixaban 5mg tablet PO SCH ×2 (07:31→19:39)
[2023-06-22] MEDS: metoprolol succinate 25mg (24-HOUR) SR. Tablet PO SCH ×2 (07:31→19:39)
[2023-06-22] MEDS: nicotine 14mg patch - 24hr TD SCH (07:32)
[2023-06-22] MEDS: DAPAGLIFLOZIN 10MG TABLET PO SCH (07:32)
[2023-06-22] MEDS: docusate sod 100mg capsule PO SCH ×2 (07:32→19:38)
[2023-06-22 07:46] LABS: ALANINE AMINOTRANSFERASE 31 U/L (12-78); ALBUMIN 2.2 G/DL (3.4-5.0); ALBUMIN/GLOBULIN RATIO 0.4 (1.1-1.5); ALKALINE PHOSPHATASE 85 IU/L (46-116); ANION GAP 4 (8-16); ASPARTATE AMINO TRANSFERASE 34 U/L (10-37); BILIRUBIN,TOTAL 0.6 MG/DL (0.1-1.0); BLOOD UREA NITROGEN 17 MG/DL (7-18); BUN/CREATININE RATIO 13.3 (10.0-20.0); CALCIUM 8.7 MG/DL (8.5-10.1); CHLORIDE 103 MMOL/L (99-107); CREATININE 1.28 MG/DL (0.60-1.10); GLUCOSE 128 MG/DL (70-104); POTASSIUM 3.9 MMOL/L (3.5-5.1); SODIUM 136 MMOL/L (135-145); TOTAL CARBON DIOXIDE 29.4 MMOL/L (24-32); TOTAL PROTEIN 7.8 G/DL (6.4-8.2); eCRCL 73 ML/MIN; eGFR 58 ML/MIN
[2023-06-22] MEDS: NUT.TX.GLUC.INTOLER,LAC-FR,SOY (GLUCERNA) 237 ML PO SCH ×3 (08:00→18:00)
[2023-06-22] MEDS: K and/or MAG REPLACEMENT MC SCH ×2 (08:00→20:00)
[2023-06-22] MEDS ORDERED: OLANZapine 2.5MG tablet PO SCH (09:50)
[2023-06-22] MEDS: insulin Lispro (HumaLOG) vial - multi-dose SQ SCH ×2 (10:11→13:58)
[2023-06-22] MEDS: ziprasidone IM 20mg inj **IM only IM PRN (19:46)
[2023-06-22] MEDS: DOXEPIN HCL 3 MG PO SCH (21:00)
[2023-06-22] MEDS: insulin glargine (Lantus) pen - multi-dose SQ SCH (21:00)
[2023-06-22] MEDS: temazepam 15mg capsule PO PRN (22:31)
[2023-06-22] MEDS: buPROPion 100mg tablet PO SCH (23:09)
[2023-06-22] MEDS ORDERED: hyDROXYzine 50 mg/ml injection ***IM only IM ONE (23:40)
[2023-06-22] MEDS ORDERED: metoprolol tartrate 1mg/ml inj IV ONE (23:40)
[2023-06-22] MEDS ORDERED: diazepam inj 5 MG/ML inj. IV ONE (23:40)
[2023-06-23] MEDS: cephalexin 500mg capsule PO SCH ×2 (01:01→07:10)
[2023-06-23 02:00] VITALS: BP 138/96; PULSE 121; RESP 16; TEMP 97.6; O2SAT 97
[2023-06-23] MEDS: morphine 2 MG/ML inj. syringe IV PRN ×2 (02:42→07:09)
[2023-06-23] MEDS: ipratropium 0.5 MG/2.5ML nebule NEB SCH ×2 (02:53→08:24)
[2023-06-23] MEDS: HYDROcodone/acetaminophen 5mg/325mg tablet PO PRN (05:37)
[2023-06-23 06:00] VITALS: BP 155/118; PULSE 122; RESP 18; TEMP 98.7; O2SAT 95
[2023-06-23 06:39] LABS: BASOPHILS # (AUTO) 0.1 X10'3 (0-0.2); BASOPHILS % (AUTO) 0.7 % (0-1); EOSINOPHILS # (AUTO) 0.1 X10'3 (0-0.9); EOSINOPHILS % (AUTO) 1.6 % (0-6); HEMATOCRIT 38.6 % (42.0-52.0); HEMOGLOBIN 12.9 g/dl (14.0-17.9); LYMPHOCYTES # (AUTO) 1.4 X10'3 (1.1-4.8); LYMPHOCYTES % (AUTO) 15.9 % (21-51); MEAN CORPUSCULAR HEMOGLOBIN 31.2 PG (27.0-31.0); MEAN CORPUSCULAR HGB CONC 33.5 g/dL (33.0-36.5); MEAN CORPUSCULAR VOLUME 93.2 FL (78-98); MEAN PLATELET VOLUME 9.5 FL (7.4-10.4); MONOCYTES # (AUTO) 0.8 X10'3 (0-0.9); MONOCYTES % (AUTO) 9.3 % (2-12); NEUTROPHILS # (AUTO) 6.2 X10'3 (1.8-7.7); NEUTROPHILS % (AUTO) 72.5 % (42-75); PLATELET COUNT 201 X10'3 (140-440); RED BLOOD COUNT 4.14 X10'6 (4.70-6.10); RED CELL DISTRIBUTION WIDTH 14.6 % (11.5-14.5); WHITE BLOOD COUNT 8.5 X10'3 (4.5-11.0)
[2023-06-23 07:09] LABS: ALANINE AMINOTRANSFERASE 35 U/L (12-78); ALBUMIN 2.2 G/DL (3.4-5.0); ALBUMIN/GLOBULIN RATIO 0.4 (1.1-1.5); ALKALINE PHOSPHATASE 87 IU/L (46-116); ANION GAP 9 (8-16); ASPARTATE AMINO TRANSFERASE 17 U/L (10-37); BILIRUBIN,TOTAL 0.4 MG/DL (0.1-1.0); BLOOD UREA NITROGEN 17 MG/DL (7-18); BUN/CREATININE RATIO 13.4 (10.0-20.0); CALCIUM 8.9 MG/DL (8.5-10.1); CHLORIDE 103 MMOL/L (99-107); CREATININE 1.27 MG/DL (0.60-1.10); GLUCOSE 168 MG/DL (70-104); SODIUM 136 MMOL/L (135-145); TOTAL CARBON DIOXIDE 23.7 MMOL/L (24-32); TOTAL PROTEIN 7.7 G/DL (6.4-8.2); eCRCL 73 ML/MIN; eGFR 59 ML/MIN
[2023-06-23] MEDS: metoprolol succinate 25mg (24-HOUR) SR. Tablet PO SCH (07:09)
[2023-06-23] MEDS: nicotine 14mg patch - 24hr TD SCH (07:09)
[2023-06-23] MEDS: atorvastatin 20mg tablet PO SCH (07:10)
[2023-06-23] MEDS: DAPAGLIFLOZIN 10MG TABLET PO SCH (07:10)
[2023-06-23] MEDS: apixaban 5mg tablet PO SCH (07:10)
[2023-06-23] MEDS: docusate sod 100mg capsule PO SCH (07:10)
[2023-06-23] MEDS: LORazepam 1 MG tablet PO PRN (07:10)
[2023-06-23] MEDS: K and/or MAG REPLACEMENT MC SCH (08:00)
[2023-06-23 08:25] VITALS: PULSE 126; RESP 20; O2SAT 93
[2023-06-23 08:33] VITALS: PULSE 125; RESP 18
[2023-06-23] MEDS: NUT.TX.GLUC.INTOLER,LAC-FR,SOY (GLUCERNA) 237 ML PO SCH ×2 (08:34→13:30)
[2023-06-23] MEDS: buPROPion 100mg tablet PO SCH (08:52)
[2023-06-23] MEDS: normal saline 1000ml 1,000 ML IV SCH (09:20)
[2023-06-23] MEDS: insulin Lispro (HumaLOG) vial - multi-dose SQ SCH (09:46)
[2023-06-23 10:00] VITALS: BP 154/107; PULSE 123; RESP 18; TEMP 98.3; O2SAT 97
[2023-06-23 10:54] VITALS: RESP 19; O2SAT 97
== END 2023-06-23 14:42 | disposition home health service (06) | DRG 812 ==
LOC: ER 08:54 → ED HOLD 13:06 → EDBEDREQ 06-17 06:33 → PCU 3S 06-17 07:40 → UNDODISIN 06-17 14:40 → PCU 3S 06-18 02:00
PROVIDERS: ADMIT Family Medicine; ATTEND Family Medicine
PROC: 5A09357 Assistance with Respiratory Ventilation, Less than 24 Consecutive Hours, Continuous Positive Airway Pressure (ICD-10-PCS; principal; 2023-06-21)
DX: T43.651A Poisoning by methamphetamines accidental (unintentional), initial encounter (principal); G92.8 Other toxic encephalopathy; I50.23 Acute on chronic systolic (congestive) heart failure; I13.0 Hypertensive heart and chronic kidney disease with heart failure and stage 1 through stage 4 chronic kidney disease, or unspecified chronic kidney disease; N17.9 Acute kidney failure, unspecified; E87.1 Hypo-osmolality and hyponatremia; I48.92 Unspecified atrial flutter; Z79.01 Long term (current) use of anticoagulants; E11.22 Type 2 diabetes mellitus with diabetic chronic kidney disease; F17.210 Nicotine dependence, cigarettes, uncomplicated; I25.10 Atherosclerotic heart disease of native coronary artery without angina pectoris; N40.0 Benign prostatic hyperplasia without lower urinary tract symptoms; N18.9 Chronic kidney disease, unspecified; F41.9 Anxiety disorder, unspecified; R79.89 Other specified abnormal findings of blood chemistry; E78.5 Hyperlipidemia, unspecified; F15.10 Other stimulant abuse, uncomplicated; I48.91 Unspecified atrial fibrillation; J44.9 Chronic obstructive pulmonary disease, unspecified; I25.2 Old myocardial infarction; Y92.89 Other specified places as the place of occurrence of the external cause; Z79.4 Long term (current) use of insulin; Z79.899 Other long term (current) drug therapy; Z79.84 Long term (current) use of oral hypoglycemic drugs; Z95.0 Presence of cardiac pacemaker; Z80.8 Family history of malignant neoplasm of other organs or systems; Z90.49 Acquired absence of other specified parts of digestive tract; Z82.5 Family history of asthma and other chronic lower respiratory diseases
CPT/HCPCS: 36415; 71045; 71250; 76881; 80053; 80305; 81001; 82948; 83036; 83605; 83735; 83880; 84145; 84484; 85025; 87040; 87081; 92508; 92616; 94640; 94760; 97116; 97161; 97530; 99285; A4349; A4565; A4615; A4649; A6258; A6260; A6449; G0378; J0282; J1200; J1630; J1815; J1940; J2270; J2543; J3360; J3486; J3490; J7030; J7040; Q9967

== ENCOUNTER 2023-06-24 11:57 | Emergency (ER) | payer MEDICAID ==
[~2023-06-24] VITALS: Ht 193 cm; Wt 122.7 kg
[2023-06-24 12:09] VITALS: TEMP 98.2
[2023-06-24 13:01] LABS: BASOPHILS # (AUTO) 0.1 X10'3 (0-0.2); BASOPHILS % (AUTO) 0.9 % (0-1); EOSINOPHILS # (AUTO) 0.2 X10'3 (0-0.9); EOSINOPHILS % (AUTO) 2.4 % (0-6); HEMATOCRIT 41.9 % (42.0-52.0); HEMOGLOBIN 13.8 g/dl (14.0-17.9); LYMPHOCYTES # (AUTO) 1.3 X10'3 (1.1-4.8); LYMPHOCYTES % (AUTO) 13.2 % (21-51); MEAN CORPUSCULAR HEMOGLOBIN 31.2 PG (27.0-31.0); MEAN CORPUSCULAR VOLUME 94.8 FL (78-98); MEAN PLATELET VOLUME 9.1 FL (7.4-10.4); MONOCYTES # (AUTO) 0.7 X10'3 (0-0.9); MONOCYTES % (AUTO) 7.3 % (2-12); NEUTROPHILS # (AUTO) 7.4 X10'3 (1.8-7.7); NEUTROPHILS % (AUTO) 76.2 % (42-75); PLATELET COUNT 244 X10'3 (140-440); RED BLOOD COUNT 4.42 X10'6 (4.70-6.10); RED CELL DISTRIBUTION WIDTH 14.6 % (11.5-14.5); WHITE BLOOD COUNT 9.8 X10'3 (4.5-11.0)
[2023-06-24 13:10] LABS: ALANINE AMINOTRANSFERASE 36 U/L (12-78); ALBUMIN 2.6 G/DL (3.4-5.0); ALBUMIN/GLOBULIN RATIO 0.4 (1.1-1.5); ALKALINE PHOSPHATASE 96 IU/L (46-116); ANION GAP 7 (8-16); ASPARTATE AMINO TRANSFERASE 29 U/L (10-37); BILIRUBIN,TOTAL 0.6 MG/DL (0.1-1.0); BLOOD UREA NITROGEN 19 MG/DL (7-18); BUN/CREATININE RATIO 15.1 (10.0-20.0); CALCIUM 9.3 MG/DL (8.5-10.1); CHLORIDE 103 MMOL/L (99-107); CREATININE 1.26 MG/DL (0.60-1.10); GLUCOSE 135 MG/DL (70-104); POTASSIUM 4.2 MMOL/L (3.5-5.1); SODIUM 139 MMOL/L (135-145); TOTAL CARBON DIOXIDE 28.8 MMOL/L (24-32); TOTAL PROTEIN 8.7 G/DL (6.4-8.2); eCRCL 80 ML/MIN; eGFR 59 ML/MIN
[2023-06-24] MEDS ORDERED: nitroGLYCERIN 1gm ointment UD TP ONE (13:55)
[2023-06-24] MEDS ORDERED: morphine 4 MG/ML inj SYRINge IV ONE (13:55)
[2023-06-24] MEDS ORDERED: carVEDilol 12.5mg tablet PO ONE (14:40)
[2023-06-24] MEDS ORDERED: metoprolol tartrate 1mg/ml inj IV ONE ×2 (14:45→16:25)
[2023-06-24] MEDS ORDERED: furosemide 10 MG/1 ML 10ml inj IV ONE (14:45)
[2023-06-24 15:10] LABS: PRO BRAIN NATRIURETIC PEPTIDE 10497 PG/ML (0-125)
[2023-06-24 16:28] LABS: BILIRUBIN,URINE NEGATIVE (Neg); CLARITY,URINE CLEAR (Clear); COLOR,URINE YELLOW (Yellow); GLUCOSE, URINE >=1000 mg/dl (Neg); KETONES,URINE TRACE mg/dl (Neg); LEUKOCYTE ESTERASE ,URINE NEGATIVE (Neg); NITRITES, URINE NEGATIVE (Neg); OCCULT BLOOD,URINE TRACE-INTACT (Neg); PROTEIN,URINE NEGATIVE (Neg); UA COLLECTION TYPE URINAL; UROBILINOGEN,URINE 0.2 E.U/dL (0.2-1.0)
[2023-06-24 16:34] LABS: BACTERIA,URINE NONE SEEN /HPF (Neg); MUCUS STRANDS FEW /LPF (Neg); RBC,URINE 0-2 /HPF (0-2); SQUAMOUS EPITHELIAL CELL,UR NONE SEEN /LPF (FEW); URINE AMPHETAMINE SCREEN NEGATIVE (Neg); URINE BARBITUATE SCREEN NEGATIVE (Neg); URINE BENZODIAZEPINES SCREEN POSITIVE (Neg); URINE CANNABINOID SCREEN NEGATIVE (Neg); URINE COCAINE SCREEN NEGATIVE (Neg); URINE METHADONE SCREEN NEGATIVE (Neg); URINE OPIATE SCREEN POSITIVE (Neg); URINE PHENCYCLIDINE SCREEN NEGATIVE (Neg); WBC,URINE NONE SEEN /HPF (0-4)
[2023-06-24 17:46] VITALS: BP 120/94; PULSE 128; RESP 18; O2SAT 100
== END 2023-06-24 17:50 | disposition home or self-care (01) ==
LOC: ER 11:58
DX: R06.02 Shortness of breath (principal); I48.91 Unspecified atrial fibrillation; E87.70 Fluid overload, unspecified; I25.10 Atherosclerotic heart disease of native coronary artery without angina pectoris; I11.0 Hypertensive heart disease with heart failure; I50.9 Heart failure, unspecified; J44.9 Chronic obstructive pulmonary disease, unspecified; F12.90 Cannabis use, unspecified, uncomplicated; F15.90 Other stimulant use, unspecified, uncomplicated; Z91.148 Patient's other noncompliance with medication regimen for other reason; Z11.9 Encounter for screening for infectious and parasitic diseases, unspecified; Z90.49 Acquired absence of other specified parts of digestive tract; Z79.2 Long term (current) use of antibiotics; Z79.899 Other long term (current) drug therapy
CPT/HCPCS: 36415; 71045; 80053; 80305; 81001; 83605; 83880; 84145; 84484; 85025; 87040; 93005; 96374; 96375; 99285; J1940; J2270; J3490

== ENCOUNTER 2023-06-26 09:19 | Inpatient (IN) | payer MEDICAID ==
[2023-06-26] VITALS (10 sets, daily range): BP systolic 137–151; BP diastolic 92–111; PULSE 124–128; RESP 18–20; TEMP 98–98.4; O2SAT 94–99
[~2023-06-26] VITALS: Ht 185.4 cm; Wt 124.5 kg
[2023-06-26 10:16] LABS: BASOPHILS # (AUTO) 0.1 X10'3 (0-0.2); BASOPHILS % (AUTO) 0.7 % (0-1); EOSINOPHILS # (AUTO) 0.2 X10'3 (0-0.9); EOSINOPHILS % (AUTO) 2.4 % (0-6); HEMATOCRIT 40.2 % (42.0-52.0); HEMOGLOBIN 13.3 g/dl (14.0-17.9); LYMPHOCYTES # (AUTO) 1.8 X10'3 (1.1-4.8); MEAN CORPUSCULAR HGB CONC 33.1 g/dL (33.0-36.5); MEAN CORPUSCULAR VOLUME 93.5 FL (78-98); MONOCYTES # (AUTO) 0.8 X10'3 (0-0.9); MONOCYTES % (AUTO) 9.4 % (2-12); NEUTROPHILS # (AUTO) 5.2 X10'3 (1.8-7.7); NEUTROPHILS % (AUTO) 65.5 % (42-75); PLATELET COUNT 235 X10'3 (140-440); RED CELL DISTRIBUTION WIDTH 14.6 % (11.5-14.5)
[2023-06-26 10:22] LABS: ALANINE AMINOTRANSFERASE 33 U/L (12-78); ALBUMIN 2.5 G/DL (3.4-5.0); ALBUMIN/GLOBULIN RATIO 0.4 (1.1-1.5); ALKALINE PHOSPHATASE 94 IU/L (46-116); ANION GAP 11 (8-16); ASPARTATE AMINO TRANSFERASE 23 U/L (10-37); BILIRUBIN,TOTAL 0.3 MG/DL (0.1-1.0); BLOOD UREA NITROGEN 13 MG/DL (7-18); BUN/CREATININE RATIO 9.8 (10.0-20.0); CALCIUM 8.5 MG/DL (8.5-10.1); CHLORIDE 103 MMOL/L (99-107); CREATININE 1.32 MG/DL (0.60-1.10); GLUCOSE 207 MG/DL (70-104); POTASSIUM 3.9 MMOL/L (3.5-5.1); SODIUM 141 MMOL/L (135-145); TOTAL CARBON DIOXIDE 26.6 MMOL/L (24-32); TOTAL PROTEIN 8.1 G/DL (6.4-8.2); eCRCL 71 ML/MIN; eGFR 56 ML/MIN
[2023-06-26 10:29] LABS: PRO BRAIN NATRIURETIC PEPTIDE 2303 PG/ML (0-125)
[2023-06-26] MEDS ORDERED: ceFAZolin 1GM/D5W- ADD-VANTAGE 50 ML IV ONE (11:15)
[2023-06-26] MEDS ORDERED: potassium Cl 40MEQ/1/2NS 520ml 520 ML IV PRN (11:20)
[2023-06-26] MEDS ORDERED: mag hydrox/Alum hydrox/simeth 30ml oral suspension PO PRN (11:20)
[2023-06-26] MEDS ORDERED: magnesium 4gm in 100ml NS 100 ML IV PRN (11:20)
[2023-06-26] MEDS ORDERED: ondansetron/PF 4mg/2ml inj IV PRN (11:20)
[2023-06-26] MEDS ORDERED: potassium Cl 20 mEq SR tablet PO PRN ×2 (11:20)
[2023-06-26] MEDS ORDERED: MESSAGE TO PHARMACY PO ONE (11:20)
[2023-06-26] MEDS ORDERED: DEXTROSE 15 GM of carb/4 tabs (each vial/BOTTLE has 4 tablets) PO PRN ×2 (11:20)
[2023-06-26] MEDS ORDERED: magnesium hydroxide 30ml (MOM) UD suspension PO PRN (11:20)
[2023-06-26] MEDS ORDERED: magnesium 2GM in 50ml NS 50 ML IV PRN (11:20)
[2023-06-26] MEDS ORDERED: glucagon, human recombinant 1mg kit SUBCUT PRN (11:20)
[2023-06-26] MEDS ORDERED: HYDROmorphone inj. 0.5 MG/0.5 ML DISP.SYRIN IV PRN (11:20)
[2023-06-26] MEDS ORDERED: dextrose 50%-water 50ml dispensing syringe IV PRN ×2 (11:20)
[2023-06-26] MEDS ORDERED: acetaminophen 325mg tablet PO PRN (11:20)
[2023-06-26] MEDS ORDERED: HYDROmorphone/PF 0.2 MG/ML SYRINGE IV PRN (11:20)
[2023-06-26] MEDS ORDERED: insulin Lispro (HumaLOG) vial - multi-dose SQ SCH (11:20)
[2023-06-26 12:19] LABS: URINE AMPHETAMINE SCREEN NEGATIVE (Neg); URINE BARBITUATE SCREEN NEGATIVE (Neg); URINE BENZODIAZEPINES SCREEN POSITIVE (Neg); URINE CANNABINOID SCREEN NEGATIVE (Neg); URINE COCAINE SCREEN NEGATIVE (Neg); URINE METHADONE SCREEN NEGATIVE (Neg); URINE OPIATE SCREEN NEGATIVE (Neg); URINE PHENCYCLIDINE SCREEN NEGATIVE (Neg)
[2023-06-26] MEDS: HYDROmorphone 1 mg/ml syringe IV PRN ×2 (14:05→20:13)
[2023-06-26] MEDS ORDERED: LIDOcaine 1% w/EPI 1:100,000 inj. MDV 50 ML VIAL ONE (15:44)
[2023-06-26] MEDS ORDERED: ceFAZolin 1000mg inj ONE ×2 (15:57→16:04)
[2023-06-26] MEDS ORDERED: midazolam 1 mg/ML 2ml injection ONE (16:04)
[2023-06-26] MEDS ORDERED: fentaNYL/PF 50MCG/1 ML 2ML syringe ONE ×2 (16:04→16:44)
[2023-06-26] MEDS ORDERED: HYDROmorphone 1 mg/ml syringe ONE (16:34)
[2023-06-26] MEDS ORDERED: metoprolol tartrate 1mg/ml inj IV ONE ×2 (16:42→16:58)
[2023-06-26] MEDS ORDERED: non-formulary drug (Dulaglutide (Trulicity) 0.5 ML) SQ SCH (17:45)
[2023-06-26] MEDS ORDERED: HYDROcodone/acetaminophen 5mg/325mg tablet PO PRN (17:45)
[2023-06-26] MEDS: K and/or MAG REPLACEMENT MC SCH (20:00)
[2023-06-26] MEDS ORDERED: carVEDilol 12.5mg tablet PO SCH (20:00)
[2023-06-26] MEDS ORDERED: albuterol 2.5 MG/3 ML nebule NEB PRN (20:00)
[2023-06-26] MEDS ORDERED: metoprolol succinate 25mg (24-HOUR) SR. Tablet PO SCH (20:00)
[2023-06-26] MEDS: ceFAZolin/D5W- 1GM premix 50 ML IV SCH (20:14)
[2023-06-26] MEDS: insulin glargine (Lantus) pen - multi-dose SQ SCH (21:00)
[2023-06-26] MEDS: DOXEPIN 3 MG PO SCH (21:00)
[2023-06-26] MEDS: ipratropium 0.5 MG/2.5ML nebule NEB SCH (21:45)
[2023-06-26] MEDS: furosemide 40mg tablet PO SCH (22:27)
[2023-06-26] MEDS: sacubitril/valsartan 49mg-51mg tablet PO SCH (22:27)
[2023-06-26] MEDS: docusate sod 100mg capsule PO SCH (22:28)
[2023-06-26] MEDS: LORazepam 1 MG tablet PO PRN (22:28)
[2023-06-27] VITALS (14 sets, daily range): BP systolic 98–153; BP diastolic 76–91; PULSE 124–137; RESP 16–20; TEMP 97.3–97.8; O2SAT 94–99
[2023-06-27] MEDS: LORazepam 1 MG tablet PO PRN (00:22)
[2023-06-27] MEDS: HYDROmorphone 1 mg/ml syringe IV PRN ×5 (00:22→21:54)
[2023-06-27] MEDS: ipratropium 0.5 MG/2.5ML nebule NEB SCH ×4 (03:19→20:47)
[2023-06-27] MEDS: ceFAZolin/D5W- 1GM premix 50 ML IV SCH ×3 (03:37→19:00)
[2023-06-27 06:47] LABS: HEMOGLOBIN 13.4 g/dl (14.0-17.9)
[2023-06-27 06:51] LABS: BASOPHILS # (AUTO) 0.1 X10'3 (0-0.2); EOSINOPHILS # (AUTO) 0.2 X10'3 (0-0.9); EOSINOPHILS % (AUTO) 3.2 % (0-6); HEMATOCRIT 39.8 % (42.0-52.0); LYMPHOCYTES # (AUTO) 1.7 X10'3 (1.1-4.8); LYMPHOCYTES % (AUTO) 22.3 % (21-51); MEAN CORPUSCULAR HEMOGLOBIN 31.4 PG (27.0-31.0); MEAN CORPUSCULAR HGB CONC 33.6 g/dL (33.0-36.5); MEAN CORPUSCULAR VOLUME 93.5 FL (78-98); MEAN PLATELET VOLUME 8.7 FL (7.4-10.4); MONOCYTES # (AUTO) 0.7 X10'3 (0-0.9); MONOCYTES % (AUTO) 9.2 % (2-12); NEUTROPHILS # (AUTO) 4.8 X10'3 (1.8-7.7); NEUTROPHILS % (AUTO) 64.3 % (42-75); PLATELET COUNT 232 X10'3 (140-440); RED BLOOD COUNT 4.25 X10'6 (4.70-6.10); RED CELL DISTRIBUTION WIDTH 14.6 % (11.5-14.5); WHITE BLOOD COUNT 7.4 X10'3 (4.5-11.0)
[2023-06-27 06:54] LABS: ALANINE AMINOTRANSFERASE 31 U/L (12-78); ALBUMIN 2.5 G/DL (3.4-5.0); ALBUMIN/GLOBULIN RATIO 0.5 (1.1-1.5); ALKALINE PHOSPHATASE 84 IU/L (46-116); ANION GAP 4 (8-16); ASPARTATE AMINO TRANSFERASE 37 U/L (10-37); BILIRUBIN,TOTAL 0.4 MG/DL (0.1-1.0); BLOOD UREA NITROGEN 13 MG/DL (7-18); CALCIUM 8.4 MG/DL (8.5-10.1); CHLORIDE 102 MMOL/L (99-107); CREATININE 1.18 MG/DL (0.60-1.10); GLUCOSE 162 MG/DL (70-104); MAGNESIUM 1.8 MG/DL (1.5-2.4); POTASSIUM 3.6 MMOL/L (3.5-5.1); SODIUM 137 MMOL/L (135-145); TOTAL CARBON DIOXIDE 30.7 MMOL/L (24-32); TOTAL PROTEIN 7.9 G/DL (6.4-8.2); eCRCL 79 ML/MIN; eGFR 64 ML/MIN
[2023-06-27] MEDS ORDERED: insulin glargine (Lantus) pen - multi-dose SQ SCH (08:00)
[2023-06-27] MEDS: K and/or MAG REPLACEMENT MC SCH ×2 (08:00→19:51)
[2023-06-27] MEDS ORDERED: metoprolol succinate 25mg (24-HOUR) SR. Tablet PO SCH (08:00)
[2023-06-27] MEDS: docusate sod 100mg capsule PO SCH ×2 (08:14→20:19)
[2023-06-27] MEDS: furosemide 40mg tablet PO SCH ×2 (08:14→20:08)
[2023-06-27] MEDS: atorvastatin 20mg tablet PO SCH (08:14)
[2023-06-27] MEDS: tamsulosin 0.4mg capsule PO SCH (08:14)
[2023-06-27] MEDS: nicotine 14mg patch - 24hr TD SCH (08:15)
[2023-06-27] MEDS: DAPAGLIFLOZIN 10MG TABLET PO SCH (08:15)
[2023-06-27] MEDS: sacubitril/valsartan 49mg-51mg tablet PO SCH ×2 (08:16→20:08)
[2023-06-27] MEDS: spironolactone 25 MG tablet PO SCH (08:17)
[2023-06-27] MEDS: HYDROcodone/acetaminophen 10/325mg tab PO PRN ×3 (09:34→20:07)
[2023-06-27] MEDS: DOXEPIN 3 MG PO SCH (21:00)
[2023-06-27] MEDS: insulin glargine (Lantus) pen - multi-dose SQ SCH (21:00)
[2023-06-27] MEDS: metoprolol succinate 25mg (24-HOUR) SR. Tablet PO SCH (21:49)
[2023-06-28] VITALS (13 sets, daily range): BP systolic 102–126; BP diastolic 50–97; PULSE 89–130; RESP 12–20; TEMP 97.2–98.3; O2SAT 88–98
[2023-06-28] MEDS: ipratropium 0.5 MG/2.5ML nebule NEB SCH ×4 (02:31→21:20)
[2023-06-28] MEDS: HYDROmorphone 1 mg/ml syringe IV PRN ×5 (02:43→23:57)
[2023-06-28] MEDS: ceFAZolin/D5W- 1GM premix 50 ML IV SCH ×3 (02:43→22:22)
[2023-06-28 07:05] LABS: BASOPHILS # (AUTO) 0.1 X10'3 (0-0.2); EOSINOPHILS # (AUTO) 0.2 X10'3 (0-0.9); EOSINOPHILS % (AUTO) 2.7 % (0-6); HEMATOCRIT 43.7 % (42.0-52.0); HEMOGLOBIN 14.4 g/dl (14.0-17.9); LYMPHOCYTES # (AUTO) 1.9 X10'3 (1.1-4.8); LYMPHOCYTES % (AUTO) 21.6 % (21-51); MEAN CORPUSCULAR VOLUME 93.9 FL (78-98); MEAN PLATELET VOLUME 8.9 FL (7.4-10.4); MONOCYTES # (AUTO) 0.7 X10'3 (0-0.9); MONOCYTES % (AUTO) 7.7 % (2-12); NEUTROPHILS # (AUTO) 5.9 X10'3 (1.8-7.7); PLATELET COUNT 248 X10'3 (140-440); RED BLOOD COUNT 4.65 X10'6 (4.70-6.10); RED CELL DISTRIBUTION WIDTH 14.8 % (11.5-14.5); WHITE BLOOD COUNT 8.7 X10'3 (4.5-11.0)
[2023-06-28] MEDS: tamsulosin 0.4mg capsule PO SCH (07:19)
[2023-06-28] MEDS: atorvastatin 20mg tablet PO SCH (07:19)
[2023-06-28] MEDS: furosemide 40mg tablet PO SCH ×2 (07:19→20:19)
[2023-06-28] MEDS: apixaban 5mg tablet PO SCH ×2 (07:19→20:19)
[2023-06-28] MEDS: docusate sod 100mg capsule PO SCH ×2 (07:19→20:18)
[2023-06-28] MEDS: metoprolol succinate 25mg (24-HOUR) SR. Tablet PO SCH ×2 (07:19→20:20)
[2023-06-28] MEDS: nicotine 14mg patch - 24hr TD SCH (07:20)
[2023-06-28 07:34] LABS: ALANINE AMINOTRANSFERASE 27 U/L (12-78); ALBUMIN 2.4 G/DL (3.4-5.0); ALBUMIN/GLOBULIN RATIO 0.4 (1.1-1.5); ALKALINE PHOSPHATASE 95 IU/L (46-116); ANION GAP 7 (8-16); ASPARTATE AMINO TRANSFERASE 34 U/L (10-37); BILIRUBIN,TOTAL 0.3 MG/DL (0.1-1.0); BLOOD UREA NITROGEN 14 MG/DL (7-18); BUN/CREATININE RATIO 11.2 (10.0-20.0); CALCIUM 8.4 MG/DL (8.5-10.1); CHLORIDE 100 MMOL/L (99-107); CREATININE 1.25 MG/DL (0.60-1.10); GLUCOSE 188 MG/DL (70-104); MAGNESIUM 1.8 MG/DL (1.5-2.4); SODIUM 138 MMOL/L (135-145); TOTAL CARBON DIOXIDE 31.4 MMOL/L (24-32); TOTAL PROTEIN 8.1 G/DL (6.4-8.2); eCRCL 75 ML/MIN; eGFR 60 ML/MIN
[2023-06-28 07:35] LABS: POTASSIUM 3.8 MMOL/L (3.5-5.1)
[2023-06-28] MEDS: K and/or MAG REPLACEMENT MC SCH ×2 (08:00→20:00)
[2023-06-28] MEDS: HYDROcodone/acetaminophen 10/325mg tab PO PRN (09:46)
[2023-06-28] MEDS: DAPAGLIFLOZIN 10MG TABLET PO SCH (09:49)
[2023-06-28] MEDS: spironolactone 25 MG tablet PO SCH (09:49)
[2023-06-28] MEDS: sacubitril/valsartan 49mg-51mg tablet PO SCH ×2 (09:50→20:41)
[2023-06-28] MEDS: LORazepam 1 MG tablet PO PRN (11:29)
[2023-06-28] MEDS ORDERED: amiodarone 150mg/dext, iso-os 100 ML IV ONE (16:00)
[2023-06-28] MEDS ORDERED: FLU VACC QS2023-24(6MOS UP)/PF 60 MCG/0.5 ML SYRINGE IMVAC ONE (17:00)
[2023-06-28] MEDS: amiodarone/D5 360MG/200ML BAG 200 ML IV SCH ×2 (17:47→22:04)
[2023-06-28] MEDS: HYDROmorphone inj. 0.5 MG/0.5 ML DISP.SYRIN IV PRN (20:05)
[2023-06-28] MEDS: DOXEPIN 3 MG PO SCH (21:00)
[2023-06-28] MEDS: insulin glargine (Lantus) pen - multi-dose SQ SCH (21:00)
[2023-06-29] VITALS (12 sets, daily range): BP systolic 89–106; BP diastolic 55–77; PULSE 16–117; RESP 13–24; TEMP 97.7–97.8; O2SAT 91–99
[2023-06-29] MEDS: ceFAZolin/D5W- 1GM premix 50 ML IV SCH ×2 (03:36→10:10)
[2023-06-29] MEDS: ipratropium 0.5 MG/2.5ML nebule NEB SCH ×2 (03:41→09:00)
[2023-06-29] MEDS: HYDROmorphone inj. 0.5 MG/0.5 ML DISP.SYRIN IV PRN (03:58)
[2023-06-29] MEDS: amiodarone/D5 360MG/200ML BAG 200 ML IV SCH ×2 (04:08→11:28)
[2023-06-29 06:05] LABS: BASOPHILS # (AUTO) 0.1 X10'3 (0-0.2); BASOPHILS % (AUTO) 0.7 % (0-1); EOSINOPHILS # (AUTO) 0.3 X10'3 (0-0.9); HEMATOCRIT 43.3 % (42.0-52.0); HEMOGLOBIN 14.1 g/dl (14.0-17.9); LYMPHOCYTES # (AUTO) 2.2 X10'3 (1.1-4.8); LYMPHOCYTES % (AUTO) 24.6 % (21-51); MEAN CORPUSCULAR HEMOGLOBIN 30.8 PG (27.0-31.0); MEAN CORPUSCULAR HGB CONC 32.6 g/dL (33.0-36.5); MEAN CORPUSCULAR VOLUME 94.5 FL (78-98); MEAN PLATELET VOLUME 8.9 FL (7.4-10.4); MONOCYTES # (AUTO) 0.8 X10'3 (0-0.9); NEUTROPHILS # (AUTO) 5.7 X10'3 (1.8-7.7); NEUTROPHILS % (AUTO) 62.7 % (42-75); PLATELET COUNT 259 X10'3 (140-440); RED BLOOD COUNT 4.58 X10'6 (4.70-6.10); WHITE BLOOD COUNT 9.1 X10'3 (4.5-11.0)
[2023-06-29 06:16] LABS: ALANINE AMINOTRANSFERASE 23 U/L (12-78); ALBUMIN 2.5 G/DL (3.4-5.0); ALBUMIN/GLOBULIN RATIO 0.5 (1.1-1.5); ALKALINE PHOSPHATASE 91 IU/L (46-116); ANION GAP 4 (8-16); ASPARTATE AMINO TRANSFERASE 28 U/L (10-37); BILIRUBIN,TOTAL 0.2 MG/DL (0.1-1.0); BLOOD UREA NITROGEN 19 MG/DL (7-18); CALCIUM 8.7 MG/DL (8.5-10.1); CHLORIDE 100 MMOL/L (99-107); CREATININE 1.73 MG/DL (0.60-1.10); GLUCOSE 160 MG/DL (70-104); POTASSIUM 3.9 MMOL/L (3.5-5.1); SODIUM 139 MMOL/L (135-145); TOTAL CARBON DIOXIDE 35.3 MMOL/L (24-32); TOTAL PROTEIN 7.7 G/DL (6.4-8.2); eCRCL 54 ML/MIN; eGFR 41 ML/MIN
[2023-06-29] MEDS: HYDROmorphone 1 mg/ml syringe IV PRN ×3 (07:41→15:25)
[2023-06-29] MEDS: docusate sod 100mg capsule PO SCH (07:45)
[2023-06-29] MEDS: apixaban 5mg tablet PO SCH (07:45)
[2023-06-29] MEDS: sacubitril/valsartan 49mg-51mg tablet PO SCH (07:45)
[2023-06-29] MEDS: furosemide 40mg tablet PO SCH (07:47)
[2023-06-29] MEDS: DAPAGLIFLOZIN 10MG TABLET PO SCH (07:47)
[2023-06-29] MEDS: atorvastatin 20mg tablet PO SCH (07:47)
[2023-06-29] MEDS: tamsulosin 0.4mg capsule PO SCH (07:47)
[2023-06-29] MEDS: nicotine 14mg patch - 24hr TD SCH (07:48)
[2023-06-29] MEDS: spironolactone 25 MG tablet PO SCH (07:48)
[2023-06-29] MEDS: K and/or MAG REPLACEMENT MC SCH (08:00)
[2023-06-29] MEDS: metoprolol succinate 25mg (24-HOUR) SR. Tablet PO SCH (08:01)
[2023-06-29] MEDS: LORazepam 1 MG tablet PO PRN (09:34)
[2023-06-29] MEDS: HYDROcodone/acetaminophen 10/325mg tab PO PRN ×2 (09:34→13:42)
[2023-06-29] MEDS ORDERED: digoxin 250mcg/ml 2ml ampule IV ONE (13:30)
[2023-06-29] MEDS ORDERED: ondansetron 4mg rapidly disintigrating tab PO PRN (15:00)
[2023-06-29] MEDS ORDERED: METO200T49 PO (15:52)
[2023-06-30 12:48] LABS: HBSAG SCREEN Negative (Negative); HEP B CORE AB, IGM Negative (Negative); HEP B CORE AB, TOT Negative (Negative)
== END 2023-06-29 16:47 | disposition home or self-care (01) | DRG 813 ==
LOC: ER 09:19 → ED HOLD 11:32 → PCU 3S 12:55
PROVIDERS: ADMIT Family Medicine; ATTEND Family Medicine
PROC: 3E1038Z Irrigation of Skin and Mucous Membranes using Irrigating Substance, Percutaneous Approach (ICD-10-PCS; principal; 2023-06-26)
PROC: 5A09357 Assistance with Respiratory Ventilation, Less than 24 Consecutive Hours, Continuous Positive Airway Pressure (ICD-10-PCS; 2023-06-28)
DX: L76.32 Postprocedural hematoma of skin and subcutaneous tissue following other procedure (principal); I13.0 Hypertensive heart and chronic kidney disease with heart failure and stage 1 through stage 4 chronic kidney disease, or unspecified chronic kidney disease; N17.9 Acute kidney failure, unspecified; I42.7 Cardiomyopathy due to drug and external agent; I50.22 Chronic systolic (congestive) heart failure; I95.9 Hypotension, unspecified; T81.31XA Disruption of external operation (surgical) wound, not elsewhere classified, initial encounter; E11.22 Type 2 diabetes mellitus with diabetic chronic kidney disease; I48.91 Unspecified atrial fibrillation; J44.9 Chronic obstructive pulmonary disease, unspecified; N40.0 Benign prostatic hyperplasia without lower urinary tract symptoms; I48.92 Unspecified atrial flutter; E78.5 Hyperlipidemia, unspecified; F17.200 Nicotine dependence, unspecified, uncomplicated; N18.30 Chronic kidney disease, stage 3 unspecified; F41.9 Anxiety disorder, unspecified; N52.9 Male erectile dysfunction, unspecified; I25.10 Atherosclerotic heart disease of native coronary artery without angina pectoris; Y83.1 Surgical operation with implant of artificial internal device as the cause of abnormal reaction of the patient, or of later complication, without mention of misadventure at the time of the procedure; Y92.89 Other specified places as the place of occurrence of the external cause; I25.2 Old myocardial infarction; Z86.19 Personal history of other infectious and parasitic diseases; Z82.5 Family history of asthma and other chronic lower respiratory diseases; Z80.8 Family history of malignant neoplasm of other organs or systems; Z79.899 Other long term (current) drug therapy; Z91.148 Patient's other noncompliance with medication regimen for other reason; Z95.810 Presence of automatic (implantable) cardiac defibrillator; Z90.49 Acquired absence of other specified parts of digestive tract
CPT/HCPCS: 33222; 36415; 71045; 80053; 80305; 82948; 83735; 83880; 84484; 85025; 86704; 86705; 87081; 87340; 90686; 94640; 94760; 99152; 99153; 99285; A4565; A6258; A6449; G0378; J0282; J0690; J1160; J1170; J1815; J2250; J2405; J3010; J3490

== ENCOUNTER 2023-07-13 22:17 | Inpatient (IN) | payer MEDICAID ==
[~2023-07-13] VITALS: Ht 177.8 cm; Wt 119.6 kg
[~2023-07-13 22:17] MED LIST changes: -CARV-50 PO; -DULA3PEN SQ; +METO200T49 PO
[2023-07-13] MEDS ORDERED: normal saline 1000ML IV soln IVB ONE (22:40)
[2023-07-13] MEDS ORDERED: vancomycin/NS 1 GM ADD-VANTAGE 250 ML IV ONE (23:10)
[2023-07-13] MEDS ORDERED: piperacillin/tazo 3.375gm/50ml 50 ML IV ONE (23:10)
[2023-07-13] MEDS ORDERED: morphine 4 MG/ML inj SYRINge IV ONE (23:10)
[2023-07-13] MEDS ORDERED: DOXY100T2 (23:48)
[2023-07-13] MEDS ORDERED: TAMSULOSIN (23:48)
[2023-07-13] MEDS ORDERED: INSU100I8 (23:48)
[2023-07-13] MEDS ORDERED: AMI200T (23:48)
[2023-07-13] MEDS ORDERED: CEPH-585 PO (23:48)
[2023-07-14] LABS: BASOPHILS # (AUTO) 0.1 X10'3 (0-0.2); BASOPHILS % (AUTO) 0.7 % (0-1); EOSINOPHILS # (AUTO) 0.2 X10'3 (0-0.9); EOSINOPHILS % (AUTO) 2.8 % (0-6); HEMATOCRIT 44.9 % (42.0-52.0); HEMOGLOBIN 14.9 g/dl (14.0-17.9); LYMPHOCYTES # (AUTO) 1.3 X10'3 (1.1-4.8); LYMPHOCYTES % (AUTO) 15.1 % (21-51); MEAN CORPUSCULAR HEMOGLOBIN 31.2 PG (27.0-31.0); MEAN CORPUSCULAR HGB CONC 33.2 g/dL (33.0-36.5); MEAN CORPUSCULAR VOLUME 93.9 FL (78-98); MEAN PLATELET VOLUME 8.7 FL (7.4-10.4); MONOCYTES # (AUTO) 0.9 X10'3 (0-0.9); MONOCYTES % (AUTO) 10.1 % (2-12); NEUTROPHILS # (AUTO) 6.3 X10'3 (1.8-7.7); NEUTROPHILS % (AUTO) 71.3 % (42-75); PLATELET COUNT 172 X10'3 (140-440); RED BLOOD COUNT 4.79 X10'6 (4.70-6.10); WHITE BLOOD COUNT 8.9 X10'3 (4.5-11.0)
[2023-07-14 00:15] LABS: ALANINE AMINOTRANSFERASE 57 U/L (12-78); ALBUMIN 2.4 G/DL (3.4-5.0); ALBUMIN/GLOBULIN RATIO 0.4 (1.1-1.5); ALKALINE PHOSPHATASE 149 IU/L (46-116); ANION GAP 8 (8-16); ASPARTATE AMINO TRANSFERASE 28 U/L (10-37); BILIRUBIN,TOTAL 0.3 MG/DL (0.1-1.0); BLOOD UREA NITROGEN 14 MG/DL (7-18); BUN/CREATININE RATIO 10.9 (10.0-20.0); CHLORIDE 96 MMOL/L (99-107); CREATININE 1.28 MG/DL (0.60-1.10); POTASSIUM 3.8 MMOL/L (3.5-5.1); SODIUM 134 MMOL/L (135-145); TOTAL CARBON DIOXIDE 30.3 MMOL/L (24-32); TOTAL PROTEIN 9.1 G/DL (6.4-8.2); eCRCL 67 ML/MIN; eGFR 58 ML/MIN
[2023-07-14 00:25] LABS: PRO BRAIN NATRIURETIC PEPTIDE 605 PG/ML (0-125)
[2023-07-14 00:29] LABS: GLUCOSE 405 MG/DL (70-104)
[2023-07-14] MEDS ORDERED: HYDROcodone/acetaminophen 5mg/325mg tablet PO PRN (00:45)
[2023-07-14] MEDS ORDERED: mag hydrox/Alum hydrox/simeth 30ml oral suspension PO PRN (00:45)
[2023-07-14] MEDS ORDERED: morphine 2 MG/ML inj. syringe IV PRN (00:45)
[2023-07-14] MEDS ORDERED: ondansetron/PF 4mg/2ml inj IV PRN (00:45)
[2023-07-14] MEDS ORDERED: magnesium 2GM in 50ml NS 50 ML IV PRN (00:45)
[2023-07-14] MEDS ORDERED: acetaminophen 325mg tablet PO PRN (00:45)
[2023-07-14] MEDS ORDERED: magnesium 4gm in 100ml NS 100 ML IV PRN (00:45)
[2023-07-14] MEDS ORDERED: potassium Cl 40MEQ/1/2NS 520ml 520 ML IV PRN (00:45)
[2023-07-14] MEDS ORDERED: magnesium hydroxide 30ml (MOM) UD suspension PO PRN (00:45)
[2023-07-14] MEDS ORDERED: potassium Cl 20 mEq SR tablet PO PRN ×2 (00:45)
[2023-07-14] MEDS ORDERED: MESSAGE TO PHARMACY PO ONE (00:50)
[2023-07-14] MEDS ORDERED: glucagon, human recombinant 1mg kit SUBCUT PRN (00:50)
[2023-07-14] MEDS ORDERED: DEXTROSE 15 GM of carb/4 tabs (each vial/BOTTLE has 4 tablets) PO PRN ×2 (00:50)
[2023-07-14] MEDS ORDERED: dextrose 50%-water 50ml dispensing syringe IV PRN ×2 (00:50)
[2023-07-14] MEDS ORDERED: hydrALAZINE 20mg/ml inj. IV PRN (01:20)
[2023-07-14] MEDS ORDERED: NPH, human insulin isophane inj. SQ ONE (01:40)
[2023-07-14] MEDS ORDERED: albuterol 2.5 MG/3 ML nebule NEB PRN (01:40)
[2023-07-14] MEDS ORDERED: insulin regular, human 10 units/0.1 ml syringe SQ ONE ×2 (01:55→04:35)
[2023-07-14] MEDS: normal saline 1000ml 1,000 ML IV SCH ×2 (02:07→21:46)
[2023-07-14 02:39] LABS: HEMOGLOBIN A1C 7.2 % (4.5-6.2)
[2023-07-14 02:51] LABS: ALANINE AMINOTRANSFERASE 61 U/L (12-78); ALBUMIN 2.2 G/DL (3.4-5.0); ALBUMIN/GLOBULIN RATIO 0.3 (1.1-1.5); ALKALINE PHOSPHATASE 146 IU/L (46-116); ASPARTATE AMINO TRANSFERASE 30 U/L (10-37); BILIRUBIN,TOTAL 0.3 MG/DL (0.1-1.0); FREE T4 (FREE THYROXINE) 1.21 NG/DL (0.73-1.40); MAGNESIUM 1.9 MG/DL (1.5-2.4); POTASSIUM 3.9 MMOL/L (3.5-5.1); THYROID STIMULATING HORMONE 2.55 ulU/ml (0.34-4.50); TOTAL PROTEIN 8.5 G/DL (6.4-8.2)
[2023-07-14] MEDS: morphine 2 MG/ML inj. syringe IV PRN ×4 (04:58→19:09)
[2023-07-14 05:14] LABS: BILIRUBIN,URINE NEGATIVE (Neg); CLARITY,URINE CLEAR (Clear); COLOR,URINE YELLOW (Yellow); GLUCOSE, URINE >=1000 mg/dl (Neg); KETONES,URINE NEGATIVE (Neg); LEUKOCYTE ESTERASE ,URINE NEGATIVE (Neg); NITRITES, URINE NEGATIVE (Neg); OCCULT BLOOD,URINE NEGATIVE (Neg); PROTEIN,URINE TRACE mg/dl (Neg); UROBILINOGEN,URINE 0.2 E.U/dL (0.2-1.0)
[2023-07-14 05:19] LABS: UA COLLECTION TYPE URINAL
[2023-07-14 05:20] LABS: SQUAMOUS EPITHELIAL CELL,UR NONE SEEN /LPF (FEW)
[2023-07-14 05:21] LABS: BACTERIA,URINE FEW /HPF (Neg); WBC,URINE 0-4 /HPF (0-4)
[2023-07-14 05:28] LABS: URINE AMPHETAMINE SCREEN NEGATIVE (Neg); URINE BARBITUATE SCREEN NEGATIVE (Neg); URINE BENZODIAZEPINES SCREEN POSITIVE (Neg); URINE CANNABINOID SCREEN POSITIVE (Neg); URINE COCAINE SCREEN NEGATIVE (Neg); URINE METHADONE SCREEN NEGATIVE (Neg); URINE OPIATE SCREEN POSITIVE (Neg); URINE PHENCYCLIDINE SCREEN NEGATIVE (Neg)
[2023-07-14] MEDS: HYDROcodone/acetaminophen 10/325mg tab PO PRN ×3 (07:17→16:55)
[2023-07-14] MEDS: piperacillin/tazo 3.375gm/50ml 50 ML IV SCH ×2 (07:17→17:25)
[2023-07-14] MEDS: K and/or MAG REPLACEMENT MC SCH ×2 (08:00→19:21)
[2023-07-14] MEDS: amiodarone 200mg tablet PO SCH (08:50)
[2023-07-14] MEDS: furosemide 40mg tablet PO SCH ×2 (08:51→19:30)
[2023-07-14] MEDS: apixaban 5mg tablet PO SCH ×2 (08:51→19:30)
[2023-07-14] MEDS: atorvastatin 20mg tablet PO SCH (08:51)
[2023-07-14 10:04] LABS: BILIRUBIN,DIRECT 0.2 MG/DL (0-0.3)
[2023-07-14] MEDS: insulin Lispro (HumaLOG) vial - multi-dose SQ SCH ×2 (12:44→19:29)
[2023-07-14] MEDS ORDERED: ondansetron 4mg rapidly disintigrating tab PO PRN (14:41)
[2023-07-14 16:35] VITALS: BP 142/92; PULSE 68; RESP 22; TEMP 98.3; O2SAT 96
[2023-07-14 18:00] VITALS: BP 106/80; PULSE 66; RESP 18; TEMP 97.9; O2SAT 93
[2023-07-14 20:00] VITALS: RESP 16; O2SAT 95
[2023-07-14] MEDS: insulin glargine (Lantus) pen - multi-dose SQ SCH (21:52)
[2023-07-14] MEDS: HYDROmorphone 1 mg/ml syringe IV PRN (21:57)
[2023-07-14 22:00] VITALS: BP 144/93; PULSE 68; RESP 14; TEMP 97.7; O2SAT 95
[2023-07-15] VITALS (9 sets, daily range): BP systolic 106–170; BP diastolic 67–90; PULSE 63–89; RESP 12–21; TEMP 97.6–98.7; O2SAT 94–98
[2023-07-15] MEDS: piperacillin/tazo 3.375gm/50ml 50 ML IV SCH ×2 (00:21→09:16)
[2023-07-15 05:50] LABS: BASOPHILS % (AUTO) 0.7 % (0-1); EOSINOPHILS # (AUTO) 0.3 X10'3 (0-0.9); EOSINOPHILS % (AUTO) 4.4 % (0-6); HEMOGLOBIN 14.3 g/dl (14.0-17.9); LYMPHOCYTES # (AUTO) 1.4 X10'3 (1.1-4.8); LYMPHOCYTES % (AUTO) 22.3 % (21-51); MEAN CORPUSCULAR HEMOGLOBIN 31.2 PG (27.0-31.0); MEAN CORPUSCULAR HGB CONC 33.3 g/dL (33.0-36.5); MEAN CORPUSCULAR VOLUME 93.6 FL (78-98); MEAN PLATELET VOLUME 8.5 FL (7.4-10.4); MONOCYTES # (AUTO) 0.6 X10'3 (0-0.9); MONOCYTES % (AUTO) 9.5 % (2-12); NEUTROPHILS # (AUTO) 4.1 X10'3 (1.8-7.7); NEUTROPHILS % (AUTO) 63.1 % (42-75); PLATELET COUNT 181 X10'3 (140-440); RED CELL DISTRIBUTION WIDTH 14.9 % (11.5-14.5); WHITE BLOOD COUNT 6.4 X10'3 (4.5-11.0)
[2023-07-15 06:23] LABS: ALANINE AMINOTRANSFERASE 204 U/L (12-78); ALBUMIN 2.4 G/DL (3.4-5.0); ALBUMIN/GLOBULIN RATIO 0.4 (1.1-1.5); ALKALINE PHOSPHATASE 264 IU/L (46-116); ANION GAP 5 (8-16); ASPARTATE AMINO TRANSFERASE 185 U/L (10-37); BILIRUBIN,TOTAL 0.9 MG/DL (0.1-1.0); BLOOD UREA NITROGEN 12 MG/DL (7-18); BUN/CREATININE RATIO 9.9 (10.0-20.0); CALCIUM 8.9 MG/DL (8.5-10.1); CHLORIDE 98 MMOL/L (99-107); CREATININE 1.21 MG/DL (0.60-1.10); GLUCOSE 184 MG/DL (70-104); MAGNESIUM 1.9 MG/DL (1.5-2.4); POTASSIUM 3.9 MMOL/L (3.5-5.1); SODIUM 135 MMOL/L (135-145); TOTAL CARBON DIOXIDE 32.4 MMOL/L (24-32); TOTAL PROTEIN 8.5 G/DL (6.4-8.2); eCRCL 70 ML/MIN; eGFR 62 ML/MIN
[2023-07-15] MEDS: HYDROmorphone 1 mg/ml syringe IV PRN ×4 (07:16→20:11)
[2023-07-15] MEDS: K and/or MAG REPLACEMENT MC SCH ×2 (09:08→20:00)
[2023-07-15] MEDS: HYDROcodone/acetaminophen 10/325mg tab PO PRN ×4 (09:15→22:12)
[2023-07-15] MEDS: furosemide 40mg tablet PO SCH ×2 (09:15→20:10)
[2023-07-15] MEDS: atorvastatin 20mg tablet PO SCH (09:15)
[2023-07-15] MEDS: apixaban 5mg tablet PO SCH ×2 (09:15→20:09)
[2023-07-15] MEDS: amiodarone 200mg tablet PO SCH (09:15)
[2023-07-15] MEDS: insulin Lispro (HumaLOG) vial - multi-dose SQ SCH ×2 (09:24→20:27)
[2023-07-15] MEDS ORDERED: HYDR-3965 PO (10:52)
[2023-07-15] MEDS ORDERED: VANCOmycin 1250MG/NS 250ml Bag 250 ML IV SCH (13:00)
[2023-07-15] MEDS ORDERED: METOPROLOL SUCCINATE PO SCH (20:00)
[2023-07-15] MEDS ORDERED: vancomycin/NS 1 GM ADD-VANTAGE 250 ML IV SCH (20:00)
[2023-07-15] MEDS: METOPROLOL SUCCINATE PO SCH (20:00)
[2023-07-15] MEDS: sacubitril/valsartan 49mg-51mg tablet PO SCH (20:10)
[2023-07-15] MEDS: sacubitril/valsartan 24mg-26mg tablet PO SCH (20:10)
[2023-07-15] MEDS: DOXEPIN HCL 3 MG PO SCH (20:28)
[2023-07-15] MEDS: insulin glargine (Lantus) pen - multi-dose SQ SCH (22:16)
[2023-07-16] VITALS (11 sets, daily range): BP systolic 109–130; BP diastolic 74–86; PULSE 63–91; RESP 14–21; TEMP 96.8–97.9; O2SAT 92–97
[2023-07-16] MEDS: HYDROmorphone 1 mg/ml syringe IV PRN ×6 (00:04→23:04)
[2023-07-16] MEDS: HYDROcodone/acetaminophen 10/325mg tab PO PRN ×4 (02:09→17:41)
[2023-07-16 07:19] LABS: BASOPHILS # (AUTO) 0.1 X10'3 (0-0.2); BASOPHILS % (AUTO) 0.7 % (0-1); EOSINOPHILS # (AUTO) 0.3 X10'3 (0-0.9); EOSINOPHILS % (AUTO) 3.6 % (0-6); HEMATOCRIT 43.4 % (42.0-52.0); HEMOGLOBIN 14.3 g/dl (14.0-17.9); LYMPHOCYTES # (AUTO) 1.5 X10'3 (1.1-4.8); LYMPHOCYTES % (AUTO) 19.8 % (21-51); MEAN CORPUSCULAR HEMOGLOBIN 30.9 PG (27.0-31.0); MEAN CORPUSCULAR VOLUME 93.5 FL (78-98); MEAN PLATELET VOLUME 8.4 FL (7.4-10.4); MONOCYTES # (AUTO) 0.5 X10'3 (0-0.9); MONOCYTES % (AUTO) 7.3 % (2-12); NEUTROPHILS % (AUTO) 68.6 % (42-75); PLATELET COUNT 185 X10'3 (140-440); RED BLOOD COUNT 4.65 X10'6 (4.70-6.10); WHITE BLOOD COUNT 7.3 X10'3 (4.5-11.0)
[2023-07-16 07:28] LABS: ALANINE AMINOTRANSFERASE 147 U/L (12-78); ALBUMIN 2.4 G/DL (3.4-5.0); ALBUMIN/GLOBULIN RATIO 0.4 (1.1-1.5); ALKALINE PHOSPHATASE 256 IU/L (46-116); ANION GAP 7 (8-16); ASPARTATE AMINO TRANSFERASE 95 U/L (10-37); BILIRUBIN,TOTAL 0.9 MG/DL (0.1-1.0); BLOOD UREA NITROGEN 16 MG/DL (7-18); BUN/CREATININE RATIO 12.7 (10.0-20.0); CALCIUM 8.9 MG/DL (8.5-10.1); CHLORIDE 97 MMOL/L (99-107); CHOL/HDL RATIO 4.8 (0.00-4.99); CHOLESTEROL 134 MG/DL (0-200); CREATININE 1.26 MG/DL (0.60-1.10); GLUCOSE 162 MG/DL (70-104); HDL CHOLESTEROL 28 MG/DL (35-60); LDL CHOLESTEROL 77 MG/DL (50-100); MAGNESIUM 1.9 MG/DL (1.5-2.4); POTASSIUM 3.8 MMOL/L (3.5-5.1); SODIUM 134 MMOL/L (135-145); TOTAL CARBON DIOXIDE 30.3 MMOL/L (24-32); TOTAL PROTEIN 8.7 G/DL (6.4-8.2); TRIGLYCERIDES 79 MG/DL (20-135); eCRCL 68 ML/MIN; eGFR 59 ML/MIN
[2023-07-16] MEDS: K and/or MAG REPLACEMENT MC SCH ×2 (08:00→20:00)
[2023-07-16] MEDS: apixaban 5mg tablet PO SCH ×2 (08:00→20:09)
[2023-07-16] MEDS: METOPROLOL SUCCINATE PO SCH (08:00)
[2023-07-16] MEDS: ipratropium 0.5 MG/2.5ML nebule NEB SCH ×3 (08:16→20:28)
[2023-07-16] MEDS: amiodarone 200mg tablet PO SCH (10:00)
[2023-07-16] MEDS: tamsulosin 0.4mg capsule PO SCH (10:01)
[2023-07-16] MEDS: furosemide 40mg tablet PO SCH ×2 (10:01→20:10)
[2023-07-16] MEDS: sacubitril/valsartan 49mg-51mg tablet PO SCH ×3 (10:01→20:45)
[2023-07-16] MEDS: sacubitril/valsartan 24mg-26mg tablet PO SCH ×2 (10:02→22:04)
[2023-07-16] MEDS: atorvastatin 20mg tablet PO SCH (10:03)
[2023-07-16] MEDS: DAPAGLIFLOZIN 10MG TABLET PO SCH (10:03)
[2023-07-16] MEDS: spironolactone 25 MG tablet PO SCH (10:04)
[2023-07-16] MEDS: VANCOmycin 1250MG/NS 250ml Bag 250 ML IV SCH ×2 (10:09→20:08)
[2023-07-16] MEDS: insulin Lispro (HumaLOG) vial - multi-dose SQ SCH ×3 (10:33→20:04)
[2023-07-16] MEDS: insulin glargine (Lantus) pen - multi-dose SQ SCH (21:00)
[2023-07-16] MEDS: DOXEPIN HCL 3 MG PO SCH (21:00)
[2023-07-17] VITALS (12 sets, daily range): BP systolic 112–138; BP diastolic 68–84; PULSE 69–81; RESP 12–20; TEMP 97–98.4; O2SAT 94–99
[2023-07-17] MEDS ORDERED: HYDROmorphone 1 mg/ml syringe IV ONE (00:45)
[2023-07-17] MEDS ORDERED: HYDROmorphone 1 mg/ml syringe IM ONE (00:45)
[2023-07-17] MEDS: ipratropium 0.5 MG/2.5ML nebule NEB SCH ×4 (02:00→19:36)
[2023-07-17] MEDS: HYDROmorphone 1 mg/ml syringe IV PRN ×5 (04:50→22:28)
[2023-07-17 07:46] LABS: ALANINE AMINOTRANSFERASE 127 U/L (12-78); ALBUMIN 2.3 G/DL (3.4-5.0); ALBUMIN/GLOBULIN RATIO 0.3 (1.1-1.5); ALKALINE PHOSPHATASE 236 IU/L (46-116); ANION GAP 7 (8-16); ASPARTATE AMINO TRANSFERASE 62 U/L (10-37); BILIRUBIN,TOTAL 0.6 MG/DL (0.1-1.0); BLOOD UREA NITROGEN 16 MG/DL (7-18); BUN/CREATININE RATIO 12.2 (10.0-20.0); CALCIUM 9.2 MG/DL (8.5-10.1); CHLORIDE 98 MMOL/L (99-107); CREATININE 1.31 MG/DL (0.60-1.10); GLUCOSE 161 MG/DL (70-104); MAGNESIUM 2.1 MG/DL (1.5-2.4); POTASSIUM 3.7 MMOL/L (3.5-5.1); SODIUM 135 MMOL/L (135-145); TOTAL PROTEIN 9.6 G/DL (6.4-8.2); eCRCL 65 ML/MIN; eGFR 57 ML/MIN
[2023-07-17] MEDS: K and/or MAG REPLACEMENT MC SCH ×2 (08:00→20:00)
[2023-07-17] MEDS: sacubitril/valsartan 49mg-51mg tablet PO SCH ×2 (08:00→19:58)
[2023-07-17] MEDS ORDERED: sacubitril/valsartan 49mg-51mg tablet PO SCH (08:00)
[2023-07-17] MEDS ORDERED: sacubitril/valsartan 24mg-26mg tablet PO SCH (08:00)
[2023-07-17 08:05] LABS: BASOPHILS % (AUTO) 0.5 % (0-1); EOSINOPHILS # (AUTO) 0.1 X10'3 (0-0.9); EOSINOPHILS % (AUTO) 1.6 % (0-6); HEMATOCRIT 43.8 % (42.0-52.0); HEMOGLOBIN 14.6 g/dl (14.0-17.9); LYMPHOCYTES # (AUTO) 1.6 X10'3 (1.1-4.8); LYMPHOCYTES % (AUTO) 18.2 % (21-51); MEAN CORPUSCULAR HGB CONC 33.4 g/dL (33.0-36.5); MEAN CORPUSCULAR VOLUME 92.8 FL (78-98); MEAN PLATELET VOLUME 8.4 FL (7.4-10.4); MONOCYTES # (AUTO) 0.5 X10'3 (0-0.9); MONOCYTES % (AUTO) 5.8 % (2-12); NEUTROPHILS # (AUTO) 6.4 X10'3 (1.8-7.7); NEUTROPHILS % (AUTO) 73.9 % (42-75); PLATELET COUNT 189 X10'3 (140-440); RED BLOOD COUNT 4.72 X10'6 (4.70-6.10); RED CELL DISTRIBUTION WIDTH 14.9 % (11.5-14.5); WHITE BLOOD COUNT 8.7 X10'3 (4.5-11.0)
[2023-07-17] MEDS: insulin Lispro (HumaLOG) vial - multi-dose SQ SCH ×3 (08:36→20:05)
[2023-07-17] MEDS: VANCOmycin 1250MG/NS 250ml Bag 250 ML IV SCH ×2 (09:04→22:28)
[2023-07-17] MEDS: amiodarone 200mg tablet PO SCH (09:05)
[2023-07-17] MEDS: atorvastatin 20mg tablet PO SCH (09:05)
[2023-07-17] MEDS: furosemide 40mg tablet PO SCH ×2 (09:05→19:57)
[2023-07-17] MEDS: tamsulosin 0.4mg capsule PO SCH (09:05)
[2023-07-17] MEDS: metoprolol succinate 25mg (24-HOUR) SR. Tablet PO SCH (09:05)
[2023-07-17] MEDS: apixaban 5mg tablet PO SCH (09:05)
[2023-07-17] MEDS: spironolactone 25 MG tablet PO SCH (09:10)
[2023-07-17] MEDS: DAPAGLIFLOZIN 10MG TABLET PO SCH (09:13)
[2023-07-17] MEDS: HYDROcodone/acetaminophen 10/325mg tab PO PRN ×2 (10:32→20:00)
[2023-07-17] MEDS ORDERED: iohexol 300mg/ml 100ml inj. ONE (12:55)
[2023-07-17] MEDS: heparin, porcine 5000 units/ml vial SQ SCH (15:50)
[2023-07-17] MEDS ORDERED: VANCOMYCIN LEVEL IV ONE (19:30)
[2023-07-17] MEDS: sacubitril/valsartan 24mg-26mg tablet PO SCH (19:58)
[2023-07-17] MEDS: insulin glargine (Lantus) pen - multi-dose SQ SCH (21:00)
[2023-07-17] MEDS: DOXEPIN HCL 3 MG PO SCH (21:00)
[2023-07-18] VITALS (15 sets, daily range): BP systolic 99–128; BP diastolic 60–70; PULSE 57–82; RESP 14–18; TEMP 96.5–98.1; O2SAT 92–100
[2023-07-18] MEDS: heparin, porcine 5000 units/ml vial SQ SCH ×3 (00:48→15:50)
[2023-07-18] MEDS: HYDROcodone/acetaminophen 10/325mg tab PO PRN ×2 (00:54→07:49)
[2023-07-18] MEDS: HYDROmorphone 1 mg/ml syringe IV PRN ×6 (03:27→22:24)
[2023-07-18] MEDS: ipratropium 0.5 MG/2.5ML nebule NEB SCH ×4 (03:40→20:39)
[2023-07-18] MEDS: VANCOmycin 1250MG/NS 250ml Bag 250 ML IV SCH (07:51)
[2023-07-18] MEDS: amiodarone 200mg tablet PO SCH (07:54)
[2023-07-18] MEDS: tamsulosin 0.4mg capsule PO SCH (07:54)
[2023-07-18] MEDS: metoprolol succinate 25mg (24-HOUR) SR. Tablet PO SCH (07:54)
[2023-07-18] MEDS: furosemide 40mg tablet PO SCH ×2 (07:54→19:55)
[2023-07-18] MEDS: sacubitril/valsartan 49mg-51mg tablet PO SCH ×2 (07:54→19:55)
[2023-07-18] MEDS: atorvastatin 20mg tablet PO SCH (07:54)
[2023-07-18] MEDS: DAPAGLIFLOZIN 10MG TABLET PO SCH (07:55)
[2023-07-18] MEDS: spironolactone 25 MG tablet PO SCH (07:55)
[2023-07-18] MEDS: sacubitril/valsartan 24mg-26mg tablet PO SCH ×2 (07:56→19:51)
[2023-07-18] MEDS: K and/or MAG REPLACEMENT MC SCH ×2 (08:00→20:00)
[2023-07-18 08:11] LABS: BASOPHILS % (AUTO) 0.6 % (0-1); EOSINOPHILS # (AUTO) 0.2 X10'3 (0-0.9); EOSINOPHILS % (AUTO) 2.9 % (0-6); HEMATOCRIT 43.3 % (42.0-52.0); HEMOGLOBIN 14.6 g/dl (14.0-17.9); MEAN CORPUSCULAR HEMOGLOBIN 31.2 PG (27.0-31.0); MEAN CORPUSCULAR HGB CONC 33.7 g/dL (33.0-36.5); MEAN CORPUSCULAR VOLUME 92.8 FL (78-98); MEAN PLATELET VOLUME 8.7 FL (7.4-10.4); MONOCYTES # (AUTO) 0.4 X10'3 (0-0.9); MONOCYTES % (AUTO) 6.5 % (2-12); NEUTROPHILS # (AUTO) 4.2 X10'3 (1.8-7.7); PLATELET COUNT 175 X10'3 (140-440); RED BLOOD COUNT 4.67 X10'6 (4.70-6.10); RED CELL DISTRIBUTION WIDTH 14.8 % (11.5-14.5); WHITE BLOOD COUNT 6.9 X10'3 (4.5-11.0)
[2023-07-18] MEDS: insulin Lispro (HumaLOG) vial - multi-dose SQ SCH ×3 (08:32→19:47)
[2023-07-18 08:33] LABS: ALANINE AMINOTRANSFERASE 111 U/L (12-78); ALBUMIN 2.4 G/DL (3.4-5.0); ALBUMIN/GLOBULIN RATIO 0.4 (1.1-1.5); ALKALINE PHOSPHATASE 201 IU/L (46-116); ANION GAP 7 (8-16); ASPARTATE AMINO TRANSFERASE 59 U/L (10-37); BILIRUBIN,TOTAL 0.5 MG/DL (0.1-1.0); BLOOD UREA NITROGEN 19 MG/DL (7-18); BUN/CREATININE RATIO 13.7 (10.0-20.0); CALCIUM 9.3 MG/DL (8.5-10.1); CHLORIDE 97 MMOL/L (99-107); CREATININE 1.39 MG/DL (0.60-1.10); GLUCOSE 130 MG/DL (70-104); MAGNESIUM 2.2 MG/DL (1.5-2.4); POTASSIUM 3.7 MMOL/L (3.5-5.1); SODIUM 134 MMOL/L (135-145); TOTAL CARBON DIOXIDE 30.4 MMOL/L (24-32); TOTAL PROTEIN 9.2 G/DL (6.4-8.2); eCRCL 61 ML/MIN; eGFR 53 ML/MIN
[2023-07-18] MEDS ORDERED: oxyCODONE/APAP 10/325mg tablet PO PRN (10:50)
[2023-07-18] MEDS: oxyCODONE/APAP 10/325mg tablet PO PRN (18:07)
[2023-07-18] MEDS: vancomycin/NS 1 GM ADD-VANTAGE 250 ML IV SCH (19:48)
[2023-07-18] MEDS: DOXEPIN HCL 3 MG PO SCH (21:00)
[2023-07-18] MEDS: insulin glargine (Lantus) pen - multi-dose SQ SCH (21:09)
[2023-07-19] VITALS (12 sets, daily range): BP systolic 105–175; BP diastolic 64–91; PULSE 62–89; RESP 12–20; TEMP 97–98.3; O2SAT 90–98
[2023-07-19] MEDS: heparin, porcine 5000 units/ml vial SQ SCH ×4 (00:06→23:45)
[2023-07-19] MEDS: HYDROmorphone 1 mg/ml syringe IV PRN ×5 (00:07→15:08)
[2023-07-19] MEDS: ipratropium 0.5 MG/2.5ML nebule NEB SCH ×4 (02:23→20:59)
[2023-07-19] MEDS: oxyCODONE/APAP 10/325mg tablet PO PRN ×5 (04:09→22:30)
[2023-07-19 06:30] LABS: BASOPHILS % (AUTO) 0.5 % (0-1); EOSINOPHILS # (AUTO) 0.2 X10'3 (0-0.9); EOSINOPHILS % (AUTO) 2.7 % (0-6); HEMATOCRIT 42.3 % (42.0-52.0); HEMOGLOBIN 14.1 g/dl (14.0-17.9); LYMPHOCYTES # (AUTO) 1.8 X10'3 (1.1-4.8); LYMPHOCYTES % (AUTO) 26.8 % (21-51); MEAN CORPUSCULAR HEMOGLOBIN 30.8 PG (27.0-31.0); MEAN CORPUSCULAR HGB CONC 33.3 g/dL (33.0-36.5); MEAN CORPUSCULAR VOLUME 92.7 FL (78-98); MEAN PLATELET VOLUME 8.6 FL (7.4-10.4); MONOCYTES # (AUTO) 0.4 X10'3 (0-0.9); MONOCYTES % (AUTO) 6.5 % (2-12); NEUTROPHILS # (AUTO) 4.3 X10'3 (1.8-7.7); NEUTROPHILS % (AUTO) 63.5 % (42-75); PLATELET COUNT 176 X10'3 (140-440); RED BLOOD COUNT 4.56 X10'6 (4.70-6.10); WHITE BLOOD COUNT 6.7 X10'3 (4.5-11.0)
[2023-07-19 07:06] LABS: ALANINE AMINOTRANSFERASE 107 U/L (12-78); ALBUMIN 2.5 G/DL (3.4-5.0); ALBUMIN/GLOBULIN RATIO 0.4 (1.1-1.5); ALKALINE PHOSPHATASE 193 IU/L (46-116); ANION GAP 8 (8-16); ASPARTATE AMINO TRANSFERASE 56 U/L (10-37); BILIRUBIN,TOTAL 0.4 MG/DL (0.1-1.0); BLOOD UREA NITROGEN 20 MG/DL (7-18); BUN/CREATININE RATIO 14.6 (10.0-20.0); CALCIUM 8.8 MG/DL (8.5-10.1); CHLORIDE 97 MMOL/L (99-107); CREATININE 1.37 MG/DL (0.60-1.10); GLUCOSE 126 MG/DL (70-104); POTASSIUM 3.9 MMOL/L (3.5-5.1); SODIUM 134 MMOL/L (135-145); TOTAL CARBON DIOXIDE 28.8 MMOL/L (24-32); TOTAL PROTEIN 8.4 G/DL (6.4-8.2); eCRCL 62 ML/MIN; eGFR 54 ML/MIN
[2023-07-19] MEDS: K and/or MAG REPLACEMENT MC SCH ×2 (07:19→20:00)
[2023-07-19] MEDS: furosemide 40mg tablet PO SCH ×2 (07:24→19:55)
[2023-07-19] MEDS: spironolactone 25 MG tablet PO SCH (07:24)
[2023-07-19] MEDS: amiodarone 200mg tablet PO SCH (07:24)
[2023-07-19] MEDS: tamsulosin 0.4mg capsule PO SCH (07:24)
[2023-07-19] MEDS: DAPAGLIFLOZIN 10MG TABLET PO SCH (07:24)
[2023-07-19] MEDS: sacubitril/valsartan 24mg-26mg tablet PO SCH ×2 (07:24→19:56)
[2023-07-19] MEDS: vancomycin/NS 1 GM ADD-VANTAGE 250 ML IV SCH ×2 (07:24→19:53)
[2023-07-19] MEDS: atorvastatin 20mg tablet PO SCH (07:24)
[2023-07-19] MEDS: sacubitril/valsartan 49mg-51mg tablet PO SCH ×2 (07:24→19:55)
[2023-07-19] MEDS: metoprolol succinate 25mg (24-HOUR) SR. Tablet PO SCH (07:34)
[2023-07-19] MEDS: insulin Lispro (HumaLOG) vial - multi-dose SQ SCH (08:41)
[2023-07-19 15:42] LABS: HBSAG SCREEN Negative (Negative); HEP A AB, IGM Negative (Negative); HEP B CORE AB, IGM Negative (Negative); HEPATITIS C VIRUS ANTIBODY Reactive (Non Reactive)
[2023-07-19] MEDS: DOXEPIN HCL 3 MG PO SCH (21:00)
[2023-07-19] MEDS: insulin glargine (Lantus) pen - multi-dose SQ SCH (21:00)
[2023-07-20] VITALS (9 sets, daily range): BP systolic 110–130; BP diastolic 62–80; PULSE 55–80; RESP 16–19; TEMP 97.6; O2SAT 94–98
[2023-07-20] MEDS: HYDROmorphone 1 mg/ml syringe IV PRN ×2 (00:13→10:44)
[2023-07-20] MEDS: ipratropium 0.5 MG/2.5ML nebule NEB SCH ×3 (02:55→14:00)
[2023-07-20] MEDS ORDERED: VANCOMYCIN LEVEL IV ONE (07:30)
[2023-07-20] MEDS: K and/or MAG REPLACEMENT MC SCH (08:00)
[2023-07-20] MEDS ORDERED: CefTRIAXone 2gm/D5W 50ml BAG 50 ML IV SCH (08:00)
[2023-07-20] MEDS: spironolactone 25 MG tablet PO SCH (09:31)
[2023-07-20] MEDS: DAPAGLIFLOZIN 10MG TABLET PO SCH (09:32)
[2023-07-20] MEDS: oxyCODONE/APAP 10/325mg tablet PO PRN ×2 (09:32→14:29)
[2023-07-20] MEDS: sacubitril/valsartan 24mg-26mg tablet PO SCH (09:32)
[2023-07-20] MEDS: atorvastatin 20mg tablet PO SCH (09:33)
[2023-07-20] MEDS: amiodarone 200mg tablet PO SCH (09:34)
[2023-07-20] MEDS: furosemide 40mg tablet PO SCH (09:34)
[2023-07-20] MEDS: metoprolol succinate 25mg (24-HOUR) SR. Tablet PO SCH (09:34)
[2023-07-20] MEDS: tamsulosin 0.4mg capsule PO SCH (09:34)
[2023-07-20] MEDS: heparin, porcine 5000 units/ml vial SQ SCH (09:42)
[2023-07-20] MEDS: insulin Lispro (HumaLOG) vial - multi-dose SQ SCH (09:58)
[2023-07-20] MEDS ORDERED: vancomycin inj 500 MG in normal saline 100ml IV soln 100 ML IV SCH (20:00)
[2023-07-22] MEDS ORDERED: VANCOMYCIN LEVEL IV ONE (07:30)
== END 2023-07-20 15:16 | disposition short-term general hospital (02) | DRG 206 ==
LOC: ER 22:17 → ED HOLD 07-14 00:50 → EDBEDREQ 07-14 15:58 → PCU 3S 07-14 17:04
PROVIDERS: ADMIT Internal Medicine; ATTEND Internal Medicine
PROC: BW2F1ZZ Computerized Tomography (CT Scan) of Neck using Low Osmolar Contrast (ICD-10-PCS; principal; 2023-07-17)
DX: T82.7XXA Infection and inflammatory reaction due to other cardiac and vascular devices, implants and grafts, initial encounter (principal); I33.0 Acute and subacute infective endocarditis; G93.41 Metabolic encephalopathy; I13.0 Hypertensive heart and chronic kidney disease with heart failure and stage 1 through stage 4 chronic kidney disease, or unspecified chronic kidney disease; I50.22 Chronic systolic (congestive) heart failure; E11.22 Type 2 diabetes mellitus with diabetic chronic kidney disease; E78.5 Hyperlipidemia, unspecified; B96.89 Other specified bacterial agents as the cause of diseases classified elsewhere; I25.10 Atherosclerotic heart disease of native coronary artery without angina pectoris; I48.0 Paroxysmal atrial fibrillation; J44.9 Chronic obstructive pulmonary disease, unspecified; F15.10 Other stimulant abuse, uncomplicated; N18.30 Chronic kidney disease, stage 3 unspecified; F41.9 Anxiety disorder, unspecified; R74.01 Elevation of levels of liver transaminase levels; Y83.8 Other surgical procedures as the cause of abnormal reaction of the patient, or of later complication, without mention of misadventure at the time of the procedure; I25.2 Old myocardial infarction; Z56.0 Unemployment, unspecified; Y92.89 Other specified places as the place of occurrence of the external cause; Z79.4 Long term (current) use of insulin; Z79.899 Other long term (current) drug therapy; Z90.49 Acquired absence of other specified parts of digestive tract
CPT/HCPCS: 36415; 70450; 70491; 71045; 72125; 80053; 80061; 80076; 80202; 80305; 81001; 82948; 83036; 83605; 83735; 83880; 84132; 84145; 84439; 84443; 84484; 85025; 85651; 86622; 86705; 86709; 86803; 87040; 87081; 87340; 87522; 93005; 93308; 94640; 94760; 99285; A6212; A6213; A6449; G0378; J0696; J1170; J1644; J1815; J2270; J2543; J3370; J3490; J7030; J7040; Q9967